=== PATIENT | female | born 1940 | race Caucasian/White ===

== ENCOUNTER 2020-07-06 07:20 | Outpatient (REF) | payer MEDICARE, SELFPAY ==
[2020-07-06 08:59] LABS: Cholesterol 164 mg/dL; Glucose Fasting 128 mg/dL (60-99); HDL Cholesterol 50 mg/dL; LDL Cholesterol Calculated 96 mg/dl; Triglycerides 91 mg/dL
[2020-07-06 09:19] LABS: Estimated Average Glucose 143 mg/dL; Hemoglobin A1c % 6.6 %
== END 2020-07-06 07:21 | disposition home or self-care (01) ==
LOC: HO.LAB 07:20
PROVIDERS: PCP Internal Medicine; Visit Provider Internal Medicine
DX: E11.9 Type 2 diabetes mellitus without complications (principal)
CPT/HCPCS: 80061; 82947; 83036

== ENCOUNTER 2020-10-04 07:17 | Outpatient (REF) | payer MEDICARE, SELFPAY ==
[2020-10-04 08:01] LABS: Estimated Average Glucose 140 mg/dL; Hemoglobin A1c % 6.5 %
[2020-10-04 08:14] LABS: Cholesterol 147 mg/dL; HDL Cholesterol 52 mg/dL; LDL Cholesterol Calculated 73 mg/dl; Triglycerides 110 mg/dL
== END 2020-10-04 07:18 | disposition home or self-care (01) ==
LOC: HO.LAB 07:17
PROVIDERS: PCP Internal Medicine; Visit Provider Internal Medicine
DX: E11.9 Type 2 diabetes mellitus without complications (principal)
CPT/HCPCS: 36415; 80061; 83036

== ENCOUNTER 2021-01-02 07:24 | Outpatient (REF) | payer MEDICARE, SELFPAY ==
[2021-01-02 08:37] LABS: Alanine Aminotransferase 18 U/L (0-31); Albumin Level 3.8 g/dL (3.5-5.0); Alkaline Phosphatase 116 U/L (39-117); Anion Gap 12 (12-20); Aspartate Amino Transferase 21 U/L (5-31); Bilirubin Total 0.5 mg/dL (0.0-1.0); Blood Urea Nitrogen 15 mg/dL (9-16); Calcium 9.3 mg/dL (8.4-10.2); Carbon Dioxide 26 mmol/L (22-29); Chloride 110 mmol/L (96-108); Cholesterol 146 mg/dL; Estimated Glomerular Filt Rate 53; Glucose Fasting 127 mg/dL (60-99); HDL Cholesterol 50 mg/dL; LDL Cholesterol Calculated 73 mg/dl; Potassium 4.4 mmol/L (3.3-5.1); Sodium 144 mmol/L (135-145); Total Protein 6.4 g/dL (6.5-8.0); Triglycerides 117 mg/dL
[2021-01-02 09:28] LABS: Estimated Average Glucose 131 mg/dL; Hemoglobin A1c % 6.2 %
== END 2021-01-02 07:25 | disposition home or self-care (01) ==
LOC: HO.LAB 07:24
PROVIDERS: PCP Internal Medicine; Visit Provider Internal Medicine
DX: E11.9 Type 2 diabetes mellitus without complications (principal)
CPT/HCPCS: 36415; 80053; 80061; 83036

== ENCOUNTER 2021-06-14 08:19 | Outpatient (REF) | payer MEDICARE, SELFPAY ==
--- NOTE | ~2021-06-14 | MM_ITS ---
EXAMINATION: BONE DENSITOMETRY CLINICAL INDICATION: Menopause. COMPARISON: Baseline BD dated 09/29/2008. TECHNIQUE: Using a [employer] DXA System (software version: 13.1) manufactured by [employer], dual-energy x-ray absorptiometry was performed of the lumbar spine and left hip. The images are of good technical quality. Summary results are attached. FINDINGS: AP SPINE L1-L2 (excluding L3 and L4): The data of L1-L4 has been changed to exclude the L3 and L4 vertebral bodies, because discrepant reading may be degenerative in nature at these levels may cause overestimation of lumbar spine density. Current: BMD 1.409 g/cm2, Z-score 3.0, T-score 2.0, normal, 3.0% decrease from baseline (<5% change is not significant). Baseline: BMD 1.453 g/cm2. LEFT FEMUR, NECK: Current: BMD 0.934 g/cm2, Z-score 0.9, T-score -0.7, normal. Baseline: BMD 1.126 g/cm2. LEFT FEMUR, TOTAL: Current: BMD 1.039 g/cm2, Z-score 1.7, T-score 0.3, normal, 18.4% decrease from baseline (<5% change is not significant). Baseline: BMD 1.273 g/cm2. IDENTIFIED RISK FACTORS: Menopause. HISTORY OF FRACTURE: None listed. MEDICATIONS: Vitamin D. MM/XR DEXA axial skeleton IMPRESSION: 1. DIAGNOSIS: Normal bone density based on the lowest T-score value of -0.7 in the femoral neck applying World Health Organization criteria. 2. 10-YEAR FRACTURE RISK PREDICTION, FRAX: Major osteoporotic fracture (clinical spine, forearm, hip or shoulder) 10.0%. Hip fracture 1.9%. 3. Treatment Recommendations: NOF guidelines recommend consideration for treatment in postmenopausal women and men age 50 and older presenting with the following: -A hip or vertebral (clinical or morphometric) fracture. -T-score less than or equal to -2.5 at the femoral neck or spine after appropriate evaluation to exclude secondary causes. -Low bone mass at the hip or spine and a 10-year fracture probability by FRAX of greater than or equal to 3% for hip fracture or greater than or equal to 20% for major osteoporotic fracture based on the [place] adapted WHO algorithm. 4. Other Recommendations: All treatment decisions require clinical judgment and consideration of individual patient factors, including patient preferences, comorbidities, previous drug use, risk factors not captured in the FRAX model (e.g. frailty, falls, vitamin D deficiency, increased bone turnover, interval significant decline in bone density) and possible under or overestimation of fracture risk by FRAX. FUTURE SCAN RECOMMENDATION: People with diagnosed cases of osteoporosis or at high risk for fracture should have regular bone mineral density tests. For patients eligible for Medicare, routine testing is allowed once every 2 years. The testing frequency can be increased to one year for patients who have rapidly progressing disease, those who are receiving or discontinuing medical therapy to restore bone mass, or have additional risk factors.
--- NOTE | ~2021-06-14 | MM_ITS ---
EXAMINATION: MM SCREENING DIGITAL BREAST TOMOSYNTHESIS, BILATERAL CLINICAL INFORMATION: Screening. Asymptomatic. The lifetime risk of breast cancer based on the Tyrer-Cuzick Model is under 2%. COMPARISON: Outside mammography: 07/27/2014, 07/26/2013 ([facility]) TECHNIQUE: Digital breast tomosynthesis is performed in both the craniocaudal and mediolateral oblique views along with computer-aided detection (CAD). Synthesized 2D images are generated from the tomosynthesis. FINDINGS: There are scattered areas of fibroglandular density (ACR BI-RADS breast composition Category b). Breast tissue composition borders on heterogeneously dense. The left breast has focal architectural distortion central 6:00 retroareolar position. There is mild nipple retraction. Patient will be recalled for further evaluation. The remainder of the bilateral breasts show no mass or architectural abnormality. There are bilateral ductal secretory and some scattered punctate round calcifications in each breast. The axilla are unremarkable. MM/MM tomosynthesis screening BI IMPRESSION: 1. Left: Architectural distortion central 6:00 retroareolar position with mild nipple retraction. 2. Right: No mammographic evidence of malignancy. ASSESSMENT: BI-RADS 0: Incomplete - Need Additional Imaging Evaluation RECOMMENDATION: 1. Additional views of the left breast (3-D spot CC with nipple in profile, 3-D spot ML). 2. Targeted ultrasound if warranted after review of the additional views. 3. Radiology department staff will contact the patient for additional imaging. This patient's information was entered into a reminder system with a target due date for their next mammogram.
== END 2021-06-14 08:20 | disposition home or self-care (01) ==
LOC: HO.MAMMO 08:19
PROVIDERS: PCP Internal Medicine; Visit Provider Internal Medicine
DX: Z12.31 Encounter for screening mammogram for malignant neoplasm of breast (principal); Z13.820 Encounter for screening for osteoporosis; Z78.0 Asymptomatic menopausal state; Z79.899 Other long term (current) drug therapy
CPT/HCPCS: 77063; 77067; 77080

== ENCOUNTER 2021-06-19 10:51 | Outpatient (REF) | payer MEDICARE, SELFPAY ==
--- NOTE | ~2021-06-19 | MM_ITS ---
EXAMINATION: MM DIAGNOSTIC DIGITAL BREAST TOMOSYNTHESIS, LEFT US DIAGNOSTIC ULTRASOUND BREAST, LEFT CLINICAL INFORMATION: Recall from screening for architectural distortion central 6:00 retroareolar left breast with mild nipple retraction. COMPARISON: Mammography: 11/14/2020, outside mammography 07/27/2014 ([facility]). TECHNIQUE: Digital breast tomosynthesis is performed. 2D images are generated from the tomosynthesis. The following views are obtained: Spot CC, spot ML, spot rolled ML. Ultrasound left breast is targeted to the lower inner quadrant. Grayscale imaging and color Doppler are performed without and with harmonics. Additional imaging also performed left axilla. FINDINGS: Mammography - Additional Views: There are scattered areas of fibroglandular density (ACR BI-RADS breast composition Category b). The additional spot views confirm a spiculated mass central 5:30 retroareolar left breast. There is mild nipple retraction. A smaller satellite lesion is suspected caudally on the ML views, within 2.5 cm of the primary lesion. Findings represent change from outside mammography 2013. Targeted Ultrasound: Ultrasound left breast demonstrates irregular hypoechoic mass superficial depth 5:30 o'clock retroareolar position measuring approximately 0.7 cm in diameter with posterior acoustic shadowing and internal color flow. This corresponds to the spiculated lesion on mammography. There is a smaller similar appearing lesion within 2.5 cm, residing more inferiorly in the left breast, and corresponding to the satellite lesion on mammography. Ultrasound left axilla demonstrates no lymphadenopathy. Management: Recommend ultrasound-guided biopsy of both masses anterior inferior left breast. Results and recommendation are discussed with the patient at time of visit. Results and recommendation also called to office (MATI Alfonso) for Dr. Wilkinson on 06/19/2021. MM/MM tomosynthesis added views L IMPRESSION: 1. Spiculated mass central 6:00 retroareolar left breast under 1 cm. 2. Smaller satellite lesion located approximately 2.5 cm away. 3. No visible lymphadenopathy. ASSESSMENT: BI-RADS 4: Suspicious (subcategory 4C: High suspicion for malignancy) RECOMMENDATION: Ultrasound-guided core biopsy left breast (2 lesions). This patient's information was entered into a reminder system with a target due date for their next mammogram.
== END 2021-06-19 10:52 | disposition home or self-care (01) ==
LOC: HO.MAMMO 10:51
PROVIDERS: Visit Provider Internal Medicine
DX: N63.23 Unspecified lump in the left breast, lower outer quadrant (principal)
CPT/HCPCS: 76642; 77061; 77065

== ENCOUNTER 2021-06-26 08:56 | Outpatient (REF) | payer MEDICARE, SELFPAY ==
--- NOTE | ~2021-06-26 | MM_ITS ---
EXAMINATION: ULTRASOUND GUIDED CORE BIOPSY BREAST (TWO SITES), LEFT POST PROCEDURE DIGITAL MAMMOGRAM, LEFT CLINICAL INFORMATION: Spiculated mass central 6:00 retroareolar left breast under 1 cm with smaller satellite lesion within 2.5 cm lower left breast. COMPARISON: Mammography 06/14/2021, 06/19/2021, targeted left breast ultrasound 06/19/2021. FINDINGS: Proper informed consent is obtained from the patient after discussion of the procedure, potential risks and complications, and alternatives. Patient was given an opportunity for questions. The patient appeared to understand. The patient consented to the procedure and signed the consent form. SPECIMEN A: LOCATION: Periareolar 6:00, primary lesion. GUIDANCE: Ultrasound-guided; aseptic technique. LESION: Irregular hypoechoic mass with shadowing just under 1 cm. APPROACH: Medial lateral. ANESTHESIA: 15 mL 1% lidocaine. DERMATOTOMY: Single skin sanjay dermatotomy performed. NEEDLE: 14-gauge Achieve core biopsy device with 13.5-gauge co-axial guide needle. CORES: 6. CLIP: HydroMARK; shape: butterfly. SPECIMEN B: New anesthesia and biopsy supplies are used. LOCATION: More inferior 6:00, satellite lesion. GUIDANCE: Ultrasound-guided; aseptic technique. LESION: Irregular hypoechoic mass with shadowing under 1 cm. APPROACH: Mediolateral through same dermatotomy site. ANESTHESIA: 10 mL 1% lidocaine. DERMATOTOMY: The same skin sanjay dermatotomy site from the first lesion is used to access the lesion for the second biopsy.. NEEDLE: 14-gauge Achieve core biopsy device with 13.5-gauge co-axial guide needle. CORES: 5. CLIP: HydroMARK; shape: open coil. POST PROCEDURE DIGITAL MAMMOGRAM: The post biopsy mammogram is performed in separate room using separate digital mammography equipment from the biopsy procedure. CC x2, ML, and MLO views are obtained. There are scattered areas of fibroglandular density (breast composition category: b). The 2 clip markers correspond to the 2 mammographic lesions noted on recent diagnostic exam. No gross hematoma. The patient tolerated the procedure well. No immediate complications. Home instructions reviewed with the patient. Final pathology results are pending. MM/MM tomosynthesis diagnostic LT IMPRESSION: 1. Status post ultrasound-guided core biopsy left breast (two sites). 2. Clips placed: HydroMARK; shape: butterfly (specimen A) and HydroMARK; shape: open coil (specimen B). 3. Pathology pending. An addendum report will be issued.
== END 2021-06-26 08:57 | disposition home or self-care (01) ==
LOC: HO.MAMMO 08:56
PROVIDERS: Visit Provider Surgery
DX: N63.23 Unspecified lump in the left breast, lower outer quadrant (principal)
CPT/HCPCS: 19083; 19084; 77061; 77065; 88305; 88360; 99202

== ENCOUNTER → 2021-07-04 08:50 | Outpatient (BNVA) | payer MEDICARE, SELFPAY | PROVIDERS: PCP Internal Medicine; Referring Provider Internal Medicine; Visit Provider Surgery | DX: C50.912 Malignant neoplasm of unspecified site of left female breast (principal) | CPT/HCPCS: 99212 ==

== ENCOUNTER 2021-07-09 06:51 | Day surgery (SDC) | payer MEDICARE, SELFPAY ==
[2021-07-05 12:38] VITALS: BMI 37.2
[2021-07-05 12:40] VITALS: BP 194/80; PULSE 64; RESP 18; TEMP 36; O2SAT 99
--- NOTE | 2021-07-05 13:47 | MHC.HEMONC ---
I met with pt and her prior to seeing . Pt has a new Dx of breast cancer. It was picked up on routine mammo recently. She had not had a mammo in several years. She was not aware of any breast changes. She has h/o colon cancer but was dealt with via surgery alone. She has PMH of HTN and Diabetes. Pt seen by Dr Mora in Consultation for left breast cancer. She will be having lumpectomy and sentinal node by Dr Reyez on Thursday. She will likely have RT alone followed by hormonal therapy. She will have Oncotype testing to see if she would benefit from chemotherapy. Pt wishes to go to [facility] for RT. Will make referral following her surgery next week.
--- NOTE | 2021-07-08 11:49 | HO.ANESPROP2 ---
Documented by User: Abena Brown NP 07/08/21 11:51 HPI - Anesthesia Eval Consult details Narrative: 81yo F for Left Sentinal Node Biopsy, Breast Biopsy Needle Localization, Breast Lumpectomy PMFSH Active Problems Active Problems: All Active Problems (Updated 07/05/21 @ 17:23 by Jonelle Mora MD) Hypertension (Acute) Hyperlipidemia (Acute) Adult general medical exam (Acute) Breast mass in female (Acute) Invasive ductal carcinoma of left breast (Acute) Left breast mass (Acute) Obesity (Acute) Post-menopausal (Acute) Screening for breast cancer (Acute) Obesity (Acute) Type 2 diabetes mellitus with hyperlipidemia (Acute) Diabetes mellitus (Acute) Past Medical History Medical History Diabetes mellitus Elevated cholesterol History of colon cancer HTN (hypertension) Invasive ductal carcinoma of left breast Left breast mass Obesity Obesity Post-menopausal Screening for breast cancer Type 2 diabetes mellitus with hyperlipidemia Family History Family History Father Parkinsons disease Mother Past heart attack Family/Other Diabetes Surgical History Surgical History H/O arthroscopy of knee H/O basal cell carcinoma excision H/O rectal polypectomy History of arthroscopy of right knee History of cholecystectomy History of colonoscopy History of lumbar laminectomy S/P right colectomy Social History Social History Housing: House Alcohol intake: current Alcohol intake frequency: a few times a week Alcohol type: wine Patient Tobacco Use Status: Never used Tobacco e-Cigarette/Vaping Use: Never Used Second Hand Smoke Exposure: No Use of substances other than those prescribed or required for medical reasons: No Are you DNR?: No Advance Directives: Yes Advance Directives on File: Yes Advance Directives Date on File: 07/05/21 service: No Current occupational status: retired Meds Allergies Allergy/AdvReac Type Severity Reaction Status Date / Time No Known Allergies Allergy Verified 07/04/21 09:04 Home Medications Medication Instructions Recorded Confirmed Last Taken Type aspirin 81 mg tablet,delayed 81 mg PO DAILY 07/13/20 07/05/21 Unknown History release (Adult Low Dose Aspirin) ascorbate calcium (vitamin C) 500 500 mg PO DAILY 10/10/20 07/05/21 Unknown History mg tablet cholecalciferol (vitamin D3) 25 25 mcg PO DAILY 10/10/20 07/05/21 Unknown History mcg (1,000 unit) capsule zinc 50 mg tablet 50 mg PO DAILY 10/10/20 07/05/21 Unknown History pxuszvfjbhdd-jyxgfqtk-unenvpv-folic 1 tab PO DAILY 06/26/21 07/05/21 Unknown History acid 400 mcg-vit K1 20 mcg tablet (One-A-Day Women's 50 Plus) Exam Exam Date and Time: July 08, 2021 1149 Height,Weight and Vital Signs: Height 5 ft 5 in Weight 101.5 kg Pertinent Lab Results Pertinent Lab Results: Laboratory Tests 06/24/18 01/02/21 00:00 07:35 WBC 6.1 Hgb 12.0 D Hct 37.6 Plt Count 417 H Sodium 144 Potassium 4.4 Chloride 110 H Carbon Dioxide 26 BUN 15 Creatinine 1.00 Assessment and Plan Assessment Anesthesia Assessment: Chart Reviewed Documented by User: Rhiannon Watson MD 07/09/21 11:13 [facility] Past Medical History Medical History Diabetes mellitus Elevated cholesterol History of colon cancer HTN (hypertension) Invasive ductal carcinoma of left breast Left breast mass Obesity Obesity Post-menopausal Screening for breast cancer Type 2 diabetes mellitus with hyperlipidemia Family History Family History Father Parkinsons disease Mother Past heart attack Family/Other Diabetes Surgical History Surgical History H/O arthroscopy of knee H/O basal cell carcinoma excision H/O rectal polypectomy History of arthroscopy of right knee History of cholecystectomy History of colonoscopy History of lumbar laminectomy S/P right colectomy History of Problems with Anesthesia: No Social History Social History Housing: House Alcohol intake: current Alcohol intake frequency: a few times a week Alcohol type: wine Patient Tobacco Use Status: Never used Tobacco e-Cigarette/Vaping Use: Never Used Second Hand Smoke Exposure: No Use of substances other than those prescribed or required for medical reasons: No Are you DNR?: No Advance Directives: Yes Advance Directives on File: Yes Advance Directives Date on File: 07/05/21 service: No Current occupational status: retired Meds Allergies Allergy/AdvReac Type Severity Reaction Status Date / Time No Known Allergies Allergy Verified 07/04/21 09:04 Home Medications Medication Instructions Recorded Confirmed Last Taken Type aspirin 81 mg tablet,delayed 81 mg PO DAILY 07/13/20 07/05/21 Unknown History release (Adult Low Dose Aspirin) ascorbate calcium (vitamin C) 500 500 mg PO DAILY 10/10/20 07/05/21 Unknown History mg tablet cholecalciferol (vitamin D3) 25 25 mcg PO DAILY 10/10/20 07/05/21 Unknown History mcg (1,000 unit) capsule zinc 50 mg tablet 50 mg PO DAILY 10/10/20 07/05/21 Unknown History xymsnadxqrzk-rwxxbbqr-zznuwbf-folic 1 tab PO DAILY 06/26/21 07/05/21 Unknown History acid 400 mcg-vit K1 20 mcg tablet (One-A-Day Women's 50 Plus) Exam Airway Mallampati Class: II TM Dist: >3cm Neck ROM: Full Loose/Missing/Broken Teeth: No Heart: RRR Lungs: CTA Assessment and Plan Final Anesthetic Review History of Problems with Anesthesia: No NPO: Yes ASA Class: II and III Final Preanesthetic Review: Meds/Allgs Chart Reviewed, Consent Obtained/Reviewed and Anes Risks/Benef Reviewed Patient Risk: Low Procedure Risk: Low Anesthetic Plan Anesthetic Plan: GA Disposition: Standard PACU
[2021-07-09] VITALS (8 sets, daily range): BP systolic 162–182; BP diastolic 71–80; PULSE 65–85; RESP 16–18; TEMP 36.1–36.5; O2SAT 95–99
--- NOTE | ~2021-07-09 | MM_ITS ---
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 COMPARISON: Mammography 06/14/2021, 06/19/2021, 06/26/2021; ultrasound left breast 06/19/2021, ultrasound-guided core biopsy 06/26/2021. TECHNIQUE NEEDLE LOC: Proper informed consent profiles the needle localization and the subsequent sentinel lymph node mapping is obtained from the patient after discussion of the procedure, potential risks and complications, and alternatives including declining the procedure today. Patient was given an opportunity for questions. The patient appeared to understand. The patient consented to the procedure and signed the consent form. GUIDANCE: Digital mammography. APPROACH: Lateral Medial. TARGET: 2 sites -- primary lesion (butterfly clip marker) and slightly inferoposterior to primary lesion satellite lesion (open coil clip marker). ANESTHESIA: lidocaine 1%: 6 mL (total divided between the two sites). LOCALIZATION MARKER: [place] Mamma[place] x2; 7.5 cm [place] for primary lesion and 10.0 cm [place] for the satellite lesion. The skin is prepped and local anesthesia administered to both sites. The needles are positioned and position assessed with mammography. The wires are hooked into position. [place] needle protector placed. The patient tolerated the procedure well and had no immediate complication. Following the procedure, 4% lidocaine ointment was administered to the left areola and covered with Tegaderm in anticipation of nuclear lymphoscintigraphy injection for sentinel lymph node mapping. Preliminary localization findings discussed with Dr. Oliver prior to surgery. TECHNIQUE SPECIMEN RADIOGRAPH: Imaging of the excised specimen is performed using digital mammography in 1 view. FINDINGS SPECIMEN RADIOGRAPH: The specimen shows the distal needles and distal hookwires are delivered intact. Both biopsy clip markers are identified in the specimen. Results were called to Dr. Matt Oliver in the operating room at the time of imaging. MM/MM needle loc LT IMPRESSION: 1. Status post left breast needle localization (two sites) with wires hooked into position. 2. Post operative specimen radiograph obtained.
--- NOTE | ~2021-07-09 | NM_ITS ---
EXAMINATION: NM LYMPH SCINTIGRAPHY CLINICAL INFORMATION: Left breast cancer. COMPARISON: None TECHNIQUE: Following explaining left breast sentinel node procedure, benefits and risk, a written consent was obtained by Dr. Ladd. 2% lidocaine jelly cream was applied around the left breast areola for 30 minutes. The jelly cream was then cleaned with gauze and alcohol solution. 0.5 mCi of Lymphoseek divided in 4 equal doses was injected in 4 quadrants subcutaneously around the left areola. Images were obtained approximately 30 minutes later. Patient tolerated procedure extremely well. FINDINGS: On imaging, there is normal isotope activity seen in the 4 quadrants around the left breast areola. There are at least 2 obvious active lymph nodes seen in the anterior axilla. There are additional smaller faintly visualized 2 lymph nodes slightly superiorly and medially. NM/NM sentinel node w imaging IMPRESSION: Left breast lymphoscintigraphy reveals several sentinel lymph nodes in the left anterior axilla.
--- NOTE | ~2021-07-09 | MM_ITS ---
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 COMPARISON: Mammography 06/14/2021, 06/19/2021, 06/26/2021; ultrasound left breast 06/19/2021, ultrasound-guided core biopsy 06/26/2021. TECHNIQUE NEEDLE LOC: Proper informed consent profiles the needle localization and the subsequent sentinel lymph node mapping is obtained from the patient after discussion of the procedure, potential risks and complications, and alternatives including declining the procedure today. Patient was given an opportunity for questions. The patient appeared to understand. The patient consented to the procedure and signed the consent form. GUIDANCE: Digital mammography. APPROACH: Lateral Medial. TARGET: 2 sites -- primary lesion (butterfly clip marker) and slightly inferoposterior to primary lesion satellite lesion (open coil clip marker). ANESTHESIA: lidocaine 1%: 6 mL (total divided between the two sites). LOCALIZATION MARKER: [place] MammaLok x2; 7.5 cm [place] for primary lesion and 10.0 cm [place] for the satellite lesion. The skin is prepped and local anesthesia administered to both sites. The needles are positioned and position assessed with mammography. The wires are hooked into position. [place] needle protector placed. The patient tolerated the procedure well and had no immediate complication. Following the procedure, 4% lidocaine ointment was administered to the left areola and covered with Tegaderm in anticipation of nuclear lymphoscintigraphy injection for sentinel lymph node mapping. Preliminary localization findings discussed with Dr. Oliver prior to surgery. TECHNIQUE SPECIMEN RADIOGRAPH: Imaging of the excised specimen is performed using digital mammography in 1 view. FINDINGS SPECIMEN RADIOGRAPH: The specimen shows the distal needles and distal hookwires are delivered intact. Both biopsy clip markers are identified in the specimen. Results were called to Dr. Matt Oliver in the operating room at the time of imaging. MM/MM needle loc ea add IMPRESSION: 1. Status post left breast needle localization (two sites) with wires hooked into position. 2. Post operative specimen radiograph obtained.
[2021-07-09 07:25] LABS: Glucose, Whole Blood 120 mg/dL (60-115)
[2021-07-09] MEDS: Lactated Ringers 1,000 ML 100 ML IVCONT (07:38)
--- NOTE | 2021-07-09 10:57 | MHC.SHP ---
Pre-Procedural Eval Section A Date of Service: 07/09/21 Section B Chief Complaint: Invasive ductal carcinoma of left breast Allergies: Allergies Allergy/AdvReac Type Severity Reaction Status Date / Time No Known Allergies Allergy Verified 07/04/21 09:04 Plan I have reviewed the history and physical and performed a pertinent physical examination on my patient. No changes have occurred unless specified.
--- NOTE | 2021-07-09 13:19 | W.PM.OPN ---
Operative Note Operative Note Date of Service: 07/09/21 Narrative: Preop diagnosis: Invasive ductal cancer, left breast x2 Postop diagnosis: Invasive ductal cancer, left breast x2 Procedure: Lumpectomy, left breast with needle localization, sentinel node biopsy Surgeon: Matt Oliver MD speech language pathology assistant: ADRI Albaradobodeau Patient is an 81 year female who had been recently diagnosed to have breast cancer on the left breast. She had 2 foci of invasive ductal cancer at the 6 o'clock position, adjacent to each other. She had wanted to proceed with breast conservation therapy. She understood the technique of this procedure along with needle localization and sentinel node biopsy. She was aware of the risks, benefits and alternatives. She had undergone needle localization earlier this morning. There were [address] because of the 2 foci of invasive ductal cancer although these were almost adjacent to each other at the 6 o'clock position. The mammogram images for localization were reviewed with the radiologist. Patient had also undergone scintigraphy for the sentinel nodes in the left axilla. Reviewed the films as were and there were about 2-3 notes that seemed to light up on imaging. She was then brought to the operating room placed supine the table under general anesthesia via laryngeal mask airway. The left arm was abducted in position to make sure that we had good exposure of the left axilla. The left breast was prepped and draped in the usual sterile fashion. The 2 localizing needles were seen entering from lateral to medial towards the area underneath the nipple-areolar complex. Lidocaine 1% was used for local anesthesia. I there did proceeded to make an incision on the skin connecting the entry point of both needles using blade 15. This carried down through the full-thickness skin subcutaneous fat with electrocautery. I then proceeded to do sharp dissection using the curved Fraire to dissect around the breast tissue surrounding both localizing needles. I paid particular attention to make sure that we had adequate margins surrounding the area of both localizing needles. I proceeded to continue to dissect all the way posteriorly and circumferentially around the localizing needles, following the general path of both localized needles as we proceeded. Eventually, as able to achieve circumferential dissection of the breast tissue surrounding both localizing needles in this was sent for immediate reray as well as for immediate gross. I then proceeded to cauterize oozing areas within the excision cavity. Once hemostasis appeared adequate, I proceeded to then apply a Tegaderm on the incision. We then proceeded to change set up as well as gloves. I proceeded to then used the probe to identify the general area of the sentinel node on the left axilla. I made the incision on the skin on this little area after localizing with the nuclear probe. This incision was made using blade 15 and this was deepened using the electrocautery. I then proceeded to periodically used the probe to orient our dissection to make sure that we were going to the right direction of the sentinel nodes. We divided through the fascia of the axilla and by following the signals with the probe, I was able to identify the 1st sentinel node. I carefully dissected this with Metzenbaum scissors and this was sent as specimen. The count on this lymph node was 782. I then proceeded to continue to scan the axilla for higher counts. There was 1 particular area in the apex that had a persistently high count so we carefully followed this using the probe. We had difficulty localizing this particular lymph node because it was deep within the apex. Eventually, I was able to identify this lymph node and this was circumferentially dissected and sent as specimen. The count on this 2nd lymph node was 656 A 3rd lymph node was identified but this had low counts. This was also sent for pathology. Prior to completion of the sentinel node biopsy, we received a phone call from the radiologist confirming the presence of the biopsy clip and apparent good margins surrounding the localizing needles. We then received a call from the pathologist stating that the margins on the anterior, superior as well as posterior of the lumpectomy site may be close. I therefore proceeded to open up this incision again. We removed more tissue on the anterior superior area and this was labeled as such. Removed more tissue as well on the posterior margins and this was labeled as such. I did not identify any area of induration or suspicious margins throughout the lumpectomy whether by palpation or direct visualization. I copiously irrigated. I controlled oozing areas with electrocautery. Once hemostasis was ensured on both the lumbar to site as well as the axilla, I reapposed deep subcutaneous tissue with Dexon 3-0 sutures. I closed both incisions with running subcuticular 4-0 Dexon sutures Steri-Strips and dressings were applied and the procedure was completed. The patient tolerated the procedure well. There were no complications noted. Initial and final counts of sponges and instruments were correct. Estimated blood loss was about 40 cc. The patient was extubated without difficulty and transferred to the recovery room with stable vital signs. Breast Stuart Node Biopsy Substrate(s) used for sentinel node biopsy in the non-neoadjuvant setting: Radiotracer All significantly radioactive nodes were removed, if radionuclide was used as the substrate for localization: Yes All palpably suspicious nodes were removed, if present: N/A If clips were placed in pathology-involved nodes, those nodes were identified and removed: Yes General Surg. - Synoptic Notes Breast Stuart Node Biopsy Substrate(s) used for sentinel node biopsy in the non-neoadjuvant setting: Radiotracer All significantly radioactive nodes were removed, if radionuclide was used as the substrate for localization: Yes All palpably suspicious nodes were removed, if present: N/A If clips were placed in pathology-involved nodes, those nodes were identified and removed: Yes
--- NOTE | 2021-07-09 13:31 | P.BOP_ITS ---
Brief Operative Note Date of Service: 07/09/21 Pre-op diagnosis: Invasive ductal cancer left breast Post-op diagnosis: same Procedure: Lumpectomy left breast with needle localization, and sentinel node biopsy Surgeon: Matt Oliver MD Anesthesia: GLMA Was an Control And Recovery Combat Rescue used for this Procedure?: Yes Control And Recovery Combat Rescue: Ilsa Goode Estimated blood loss (mL): 40 Pathology: other (1. Lumpectomy 2. [place] node 1 with a count of 782 3. sentinel node 2 with a count of 656 4. Additional axillary tissue 5. Anterosuperior margins 6. Post. margins ) Condition: stable Disposition: PACU
[2021-07-09] MEDS: ondansetron HCL 4 MG/2 ML VIAL IVPUSH (13:56)
[2021-07-09] MEDS: Acetaminophen 325 MG TABLET 650 MG PO (14:01)
[2021-07-09] MEDS: Ibuprofen 600 MG TABLET PO (14:34)
== END 2021-07-09 15:37 ==
PROVIDERS: PCP Internal Medicine; Visit Provider Surgery
PROC: (CPT 19301; principal; 2021-07-09 11:00)
PROC: (CPT 19301; 2021-07-09 11:00)
PROC: (CPT 19301; 2021-07-09 11:00)
DX: C50.112 Malignant neoplasm of central portion of left female breast (principal); E78.5 Hyperlipidemia, unspecified; I10 Essential (primary) hypertension; E11.9 Type 2 diabetes mellitus without complications; Z79.84 Long term (current) use of oral hypoglycemic drugs; Z79.82 Long term (current) use of aspirin; Z79.899 Other long term (current) drug therapy; Z90.49 Acquired absence of other specified parts of digestive tract
CPT/HCPCS: 19301; 38525; 19281; 19282; 78195; 82947; 88305; 88307; 88329; 88341; 88342; A4648; A9520; J0690; J1100; J2405; J3010

== ENCOUNTER 2021-07-16 07:20 | Outpatient (REF) | payer MEDICARE, SELFPAY ==
[2021-07-16 08:17] LABS: Hematocrit 36.1 % (37-47); Hemoglobin 11.5 g/dl (12.0-16.0); Mean Corpuscular HGB Conc 31.9 g/dl (31.0-35.0); Mean Corpuscular Hemoglobin 28.8 pg (27.0-33.0); Mean Corpuscular Volume 90.3 fL (80-98); Mean Platelet Volume 9.9 fL (9.4-12.3); Platelet Count 271 X10*3/uL (160-400); Red Cell Distribution Width 13.9 % (11.0-16.0); White Blood Count 7.6 X10*3/uL (4.8-10.8)
[2021-07-16 08:57] LABS: Alanine Aminotransferase 16 U/L (0-31); Alkaline Phosphatase 115 U/L (39-117); Anion Gap 13 (12-20); Aspartate Amino Transferase 19 U/L (5-31); Bilirubin Total 0.4 mg/dL (0.0-1.0); Blood Urea Nitrogen 20 mg/dL (9-16); Calcium 9.4 mg/dL (8.4-10.2); Carbon Dioxide 23 mmol/L (22-29); Chloride 110 mmol/L (96-108); Cholesterol 157 mg/dL; Estimated Glomerular Filt Rate 47; Glucose Random 138 mg/dL (60-115); HDL Cholesterol 51 mg/dL; LDL Cholesterol Calculated 82 mg/dl; Potassium 4.3 mmol/L (3.3-5.1); Sodium 142 mmol/L (135-145); Total Protein 6.6 g/dL (6.5-8.0); Triglycerides 122 mg/dL
[2021-07-16 09:01] LABS: Estimated Average Glucose 140 mg/dL; Hemoglobin A1c % 6.5 %
== END 2021-07-16 07:21 | disposition home or self-care (01) ==
LOC: HO.LAB 07:20
PROVIDERS: PCP Internal Medicine; Visit Provider Nurse Practitioner Family
DX: I10 Essential (primary) hypertension (principal); E78.5 Hyperlipidemia, unspecified; E11.69 Type 2 diabetes mellitus with other specified complication
CPT/HCPCS: 36415; 80053; 80061; 83036; 85027

== ENCOUNTER → 2021-07-24 10:21 | Outpatient (BNVA) | payer MEDICARE, SELFPAY | PROVIDERS: PCP Internal Medicine; Referring Provider Internal Medicine; Visit Provider Surgery | DX: C50.912 Malignant neoplasm of unspecified site of left female breast (principal) | CPT/HCPCS: 99212 ==

== ENCOUNTER → 2021-08-28 14:09 | Outpatient (BNVA) | payer MEDICARE, SELFPAY | PROVIDERS: PCP Internal Medicine; Referring Provider Internal Medicine; Visit Provider Surgery | DX: Z48.3 Aftercare following surgery for neoplasm (principal); C50.912 Malignant neoplasm of unspecified site of left female breast | CPT/HCPCS: 99212 ==

== ENCOUNTER 2021-11-12 07:23 | Outpatient (REF) | payer MEDICARE, SELFPAY ==
[2021-11-12 07:41] LABS: MANUAL DIFF FLAG NO
[2021-11-12 07:47] LABS: Basophils Percent Auto 0.4 % (0-2); Eosinophils Absolute Auto 0.5 X10*3/uL (0.0-0.4); Hematocrit 37.2 % (37.0-47.0); Imm Gran Abs Auto 0.01 X10*3/uL (0.00-0.03); Imm Gran Pct Auto 0.2 % (0.0-0.4); Lymphocytes Absolute Auto 1.6 X10*3/uL (1.2-4.9); Lymphocytes Percent Auto 31.5 % (20-40); Mean Corpuscular HGB Conc 32.3 g/dl (31.0-35.0); Mean Corpuscular Hemoglobin 28.8 pg (27.0-33.0); Mean Corpuscular Volume 89.4 fL (80.0-98.0); Mean Platelet Volume 9.4 fL (9.4-12.3); Monocytes Absolute Auto 0.4 X10*3/uL (0.1-1.2); Monocytes Percent Auto 8.4 % (2-11); Neutrophils Absolute Auto 2.5 x10*3/uL (2.0-8.3); Neutrophils Percent Auto 50.5 % (45-73); Platelet Count 231 X10*3/uL (160-400); Red Blood Count 4.16 X10*6/uL (4.20-5.50); Red Cell Distribution Width 13.4 % (11.0-16.0)
[2021-11-12 08:19] LABS: Estimated Average Glucose 143 mg/dL; Hemoglobin A1c % 6.6 %
[2021-11-12 08:46] LABS: Alanine Aminotransferase 16 U/L (0-31); Albumin Level 3.8 g/dL (3.5-5.0); Alkaline Phosphatase 105 U/L (39-117); Anion Gap 13 (12-20); Aspartate Amino Transferase 21 U/L (5-31); Bilirubin Total 0.5 mg/dL (0.0-1.0); Blood Urea Nitrogen 21 mg/dL (9-16); Calcium 9.5 mg/dL (8.4-10.2); Carbon Dioxide 25 mmol/L (22-29); Chloride 109 mmol/L (96-108); Cholesterol 144 mg/dL; Estimated Glomerular Filt Rate 49; Glucose Fasting 124 mg/dL (60-99); HDL Cholesterol 52 mg/dL; LDL Cholesterol Calculated 70 mg/dl; Potassium 4.3 mmol/L (3.3-5.1); Sodium 143 mmol/L (135-145); Total Protein 6.4 g/dL (6.5-8.0); Triglycerides 111 mg/dL
== END 2021-11-12 07:24 | disposition home or self-care (01) ==
LOC: HO.LAB 07:23
PROVIDERS: PCP Internal Medicine; Visit Provider Internal Medicine
DX: Z00.00 Encounter for general adult medical examination without abnormal findings (principal); E11.9 Type 2 diabetes mellitus without complications
CPT/HCPCS: 36415; 80053; 80061; 83036; 85025

== ENCOUNTER 2021-11-13 07:30 | Outpatient (REF) | payer MEDICARE, SELFPAY ==
[2021-11-13 08:24] LABS: Creatinine Urine 33.52 mg/dL; Microalbumin Urine < 5.0 mg/L
== END 2021-11-13 07:31 | disposition home or self-care (01) ==
LOC: HO.LNP 07:30
PROVIDERS: Visit Provider Internal Medicine
DX: E11.9 Type 2 diabetes mellitus without complications (principal)
CPT/HCPCS: 82043

== ENCOUNTER → 2022-02-26 08:50 | Outpatient (BNVA) | payer MEDICARE, SELFPAY | PROVIDERS: PCP Internal Medicine; Visit Provider Surgery | DX: C50.912 Malignant neoplasm of unspecified site of left female breast (principal); Z79.811 Long term (current) use of aromatase inhibitors; Z92.3 Personal history of irradiation | CPT/HCPCS: 99212 ==

== ENCOUNTER 2022-03-11 07:13 | Outpatient (REF) | payer MEDICARE, SELFPAY ==
[2022-03-11 08:10] LABS: Glucose Fasting 140 mg/dL (60-99)
[2022-03-11 08:12] LABS: Alanine Aminotransferase 15 U/L (0-31); Albumin Level 3.9 g/dL (3.5-5.0); Alkaline Phosphatase 95 U/L (39-117); Anion Gap 13 (12-20); Aspartate Amino Transferase 19 U/L (5-31); Bilirubin Total 0.5 mg/dL (0.0-1.0); Blood Urea Nitrogen 24 mg/dL (9-16); Calcium 9.5 mg/dL (8.4-10.2); Carbon Dioxide 25 mmol/L (22-29); Chloride 108 mmol/L (96-108); Cholesterol 156 mg/dL; Estimated Glomerular Filt Rate 42; Glucose Random 143 mg/dL (60-115); HDL Cholesterol 51 mg/dL; LDL Cholesterol Calculated 85 mg/dl; Potassium 4.5 mmol/L (3.3-5.1); Sodium 141 mmol/L (135-145); Total Protein 6.5 g/dL (6.5-8.0); Triglycerides 102 mg/dL
[2022-03-11 08:31] LABS: Estimated Average Glucose 143 mg/dL; Hemoglobin A1c % 6.6 %
[2022-03-11 08:35] LABS: Thyroid Stimulating Hormone 2.14 uIU/mL (0.32-4.0)
== END 2022-03-11 07:14 | disposition home or self-care (01) ==
LOC: HO.LAB 07:13
PROVIDERS: Internal Medicine; PCP Internal Medicine; Visit Provider Internal Medicine
DX: Z00.00 Encounter for general adult medical examination without abnormal findings (principal); C50.912 Malignant neoplasm of unspecified site of left female breast; E11.65 Type 2 diabetes mellitus with hyperglycemia
CPT/HCPCS: 36415; 80053; 80061; 82947; 83036; 84443

== ENCOUNTER 2022-06-10 07:08 | Outpatient (REF) | payer MEDICARE, SELFPAY ==
[2022-06-10 08:15] LABS: Estimated Average Glucose 143 mg/dL; Hemoglobin A1c % 6.6 %
[2022-06-10 08:20] LABS: Cholesterol 157 mg/dL; Glucose Fasting 149 mg/dL (60-99); HDL Cholesterol 53 mg/dL; LDL Cholesterol Calculated 77 mg/dl; Triglycerides 136 mg/dL
== END 2022-06-10 07:09 | disposition home or self-care (01) ==
LOC: HO.LAB 07:08
PROVIDERS: PCP Internal Medicine; Visit Provider Internal Medicine
DX: E78.5 Hyperlipidemia, unspecified (principal); E11.9 Type 2 diabetes mellitus without complications; R73.9 Hyperglycemia, unspecified
CPT/HCPCS: 36415; 80061; 82947; 83036

== ENCOUNTER 2022-07-03 10:50 | Outpatient (REF) | payer MEDICARE, SELFPAY ==
--- NOTE | ~2022-07-03 | MM_ITS ---
EXAMINATION: MM DIAGNOSTIC DIGITAL BREAST TOMOSYNTHESIS, BILATERAL CLINICAL INFORMATION: Due for yearly. 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 COMPARISON: Mammography: 07/09/2021, 06/26/2021, 06/19/2021, 06/14/2021; outside mammography 07/27/2014 ([facility]). TECHNIQUE: Digital breast tomosynthesis is performed in both the craniocaudal and mediolateral oblique views along with computer-aided detection (CAD). Synthesized 2D images are generated from the tomosynthesis. Additional views left breast obtained: exaggerated left CC, magnification left CC, magnification left ML. FINDINGS: There are scattered areas of fibroglandular density (ACR BI-RADS breast composition Category b). There are post therapy changes on the left with decreased breast size, postoperative scarring, and smooth skin thickening. The right breast shows no significant changes from prior studies. No developing density or interval mass or architectural abnormality. There are scattered bilateral round and ductal secretory calcifications again noted. Results are provided to the patient at time of visit by the technologist. MM/MM tomosynthesis diagnostic BI IMPRESSION: -No mammographic evidence of malignancy. -Post therapy changes left breast. ASSESSMENT: BI-RADS 2: Benign RECOMMENDATION: Routine annual mammography screening. This patient's information was entered into a reminder system with a target due date for their next mammogram.
== END 2022-07-03 10:51 | disposition home or self-care (01) ==
LOC: HO.MAMMO 10:50
PROVIDERS: PCP Internal Medicine; Visit Provider Internal Medicine
DX: Z85.3 Personal history of malignant neoplasm of breast (principal)
CPT/HCPCS: 77062; 77066

== ENCOUNTER 2022-08-28 07:11 | Outpatient (REF) | payer MEDICARE, SELFPAY ==
[2022-08-28 08:17] LABS: Cholesterol 142 mg/dL; Glucose Fasting 113 mg/dL (60-99); HDL Cholesterol 48 mg/dL; LDL Cholesterol Calculated 71 mg/dl; Triglycerides 119 mg/dL
[2022-08-28 08:18] LABS: Estimated Average Glucose 137 mg/dL; Hemoglobin A1c % 6.4 %
== END 2022-08-28 07:12 | disposition home or self-care (01) ==
LOC: HO.LAB 07:11
PROVIDERS: PCP Internal Medicine; Visit Provider Internal Medicine
DX: E78.5 Hyperlipidemia, unspecified (principal); E11.65 Type 2 diabetes mellitus with hyperglycemia
CPT/HCPCS: 36415; 80061; 82947; 83036

== ENCOUNTER 2022-12-24 07:10 | Outpatient (REF) | payer MEDICARE, SELFPAY ==
[2022-12-24 07:19] LABS: MANUAL DIFF FLAG NO
[2022-12-24 07:41] LABS: Basophils Percent Auto 0.5 % (0-2); Eosinophils Absolute Auto 0.4 X10*3/uL (0.0-0.4); Eosinophils Percent Auto 7.1 % (0-4); Hematocrit 37.6 % (37.0-47.0); Hemoglobin 12.1 g/dl (12.0-16.0); Imm Gran Abs Auto 0.01 X10*3/uL (0.00-0.03); Imm Gran Pct Auto 0.2 % (0.0-0.4); Lymphocytes Absolute Auto 2.3 X10*3/uL (1.2-4.9); Lymphocytes Percent Auto 37.5 % (20-40); Mean Corpuscular HGB Conc 32.2 g/dl (31.0-35.0); Mean Corpuscular Hemoglobin 28.9 pg (27.0-33.0); Mean Corpuscular Volume 89.7 fL (80.0-98.0); Mean Platelet Volume 9.8 fL (9.4-12.3); Monocytes Absolute Auto 0.5 X10*3/uL (0.1-1.2); Monocytes Percent Auto 8.7 % (2-11); Neutrophils Absolute Auto 2.9 x10*3/uL (2.0-8.3); Platelet Count 257 X10*3/uL (160-400); Red Blood Count 4.19 X10*6/uL (4.20-5.50); White Blood Count 6.2 X10*3/uL (4.8-10.8)
[2022-12-24 07:55] LABS: Estimated Average Glucose 137 mg/dL; Hemoglobin A1c % 6.4 %
[2022-12-24 07:56] LABS: Alanine Aminotransferase 15 U/L (0-31); Albumin Level 3.8 g/dL (3.5-5.0); Alkaline Phosphatase 105 U/L (39-117); Anion Gap 14 (12-20); Aspartate Amino Transferase 18 U/L (5-31); Bilirubin Total 0.5 mg/dL (0.0-1.0); Blood Urea Nitrogen 19 mg/dL (9-16); Calcium 9.2 mg/dL (8.4-10.2); Carbon Dioxide 23 mmol/L (22-29); Chloride 110 mmol/L (96-108); Cholesterol 152 mg/dL; Estimated Glomerular Filt Rate 52; Glucose Fasting 128 mg/dL (60-99); HDL Cholesterol 52 mg/dL; LDL Cholesterol Calculated 78 mg/dl; Potassium 4.2 mmol/L (3.3-5.1); Sodium 143 mmol/L (135-145); Total Protein 6.3 g/dL (6.5-8.0); Triglycerides 113 mg/dL
== END 2022-12-24 07:11 | disposition home or self-care (01) ==
LOC: HO.LAB 07:10
PROVIDERS: PCP Internal Medicine; Visit Provider Internal Medicine
DX: Z13.0 Encounter for screening for diseases of the blood and blood-forming organs and certain disorders involving the immune mechanism (principal); E11.9 Type 2 diabetes mellitus without complications; I10 Essential (primary) hypertension; E78.5 Hyperlipidemia, unspecified
CPT/HCPCS: 36415; 80053; 80061; 83036; 85025

== ENCOUNTER 2022-12-25 15:17 | Outpatient (REF) | payer MEDICARE, SELFPAY ==
--- NOTE | ~2022-12-25 | XR_ITS ---
EXAMINATION: XR KNEE, LEFT CLINICAL INFORMATION: Knee pain. COMPARISON: Bilateral AP knee standing 08/20/2018. TECHNIQUE: 4 views of the left knee. FINDINGS: There is loss of tricompartment joint space with periarticular spurring medial compartment and a small loose body in the lateral compartment. Superior patellar small enthesophytes are noted. There is a small joint effusion. No bony erosive changes. XR/XR knee LT 3V IMPRESSION: Loose body in the lateral compartment . Degenerative arthritic changes of the tricompartment with moderate periarticular spurring in the medial compartment. Small joint effusion.
== END 2022-12-25 15:18 | disposition home or self-care (01) ==
LOC: HO.HOSX 15:17
PROVIDERS: Visit Provider Physician Assistant
DX: M17.12 Unilateral primary osteoarthritis, left knee (principal)
CPT/HCPCS: 20610; 73562; 99202; J1020

== ENCOUNTER → 2023-02-26 08:52 | Outpatient (BNVA) | payer MEDICARE, SELFPAY | PROVIDERS: PCP Internal Medicine; Visit Provider Surgery | DX: C50.812 Malignant neoplasm of overlapping sites of left female breast (principal); Z98.890 Other specified postprocedural states; Z92.3 Personal history of irradiation | CPT/HCPCS: 99212 ==

== ENCOUNTER 2023-04-29 07:18 | Outpatient (REF) | payer MEDICARE, SELFPAY ==
[2023-04-29 09:54] LABS: Estimated Average Glucose 137 mg/dL; Hemoglobin A1c % 6.4 %
[2023-04-29 10:48] LABS: Cholesterol 149 mg/dL; Glucose Fasting 119 mg/dL (60-99); HDL Cholesterol 52 mg/dL; LDL Cholesterol Calculated 80 mg/dl; Triglycerides 87 mg/dL
[2023-04-29 11:04] LABS: Thyroid Stimulating Hormone 2.22 uIU/mL (0.32-4.0)
== END 2023-04-29 07:19 | disposition home or self-care (01) ==
LOC: HO.LAB 07:18
PROVIDERS: PCP Internal Medicine; Visit Provider Internal Medicine
DX: E03.9 Hypothyroidism, unspecified (principal); R73.9 Hyperglycemia, unspecified; E78.5 Hyperlipidemia, unspecified
CPT/HCPCS: 36415; 80061; 82947; 83036; 84443

== ENCOUNTER 2023-05-06 08:38 | Outpatient (AMB) | payer MEDICARE, SELFPAY ==
[2023-05-06 08:39] VITALS: BP 146/72; PULSE 78; O2SAT 99; BMI 37.1
--- NOTE | 2023-05-06 08:39 | MHC.PC.OV ---
Vital Signs 05/06/23 08:39 Height 5 ft 5 in Weight 223 lb BMI 37.1 BP 146/72 H Blood Pressure Location Lt brachial Position Sitting Pulse 78 Pulse Source Pulse Oximeter Temp Source Skin Pulse Oximetry (%) 99 Oxygen Delivery Method Room Air Intake Visit Reasons: 4 MONTH F/U Electrotherapist Required: No Allergies No Known Allergies Allergy (Verified 05/06/23 08:39) Medication List - Last Reconciled 05/06/23 by Jordan Wilkinson MD aspirin (Adult Low Dose Aspirin) 81 mg PO DAILY lisinopril 5 mg PO DAILY lovastatin 40 mg PO DAILY metformin ER 500 mg PO QPM metoprolol succinate ER 100 mg PO DAILY pioglitazone 45 mg PO DAILY Tobacco use date assessed: 01/01/23 Fall risk assessment: No Falls in past year Last assessed Fall Risk: 05/06/23 Dental Screening Dental Screen Date: 05/06/23 Did you have a dental visit in the last 12 months?: Yes Did you have a dental problem in the last 6 months where you did not have access to dental care?: No Was dental information given to patient?: Patient has dentist HPI 4 MONTH F/U HPI Details DM HTN and hyperlip; stable and compliant [facility] Medical History (Updated 02/26/23 @ 09:17 by Matt Oliver MD) Diabetes mellitus Elevated cholesterol History of breast cancer History of colon cancer HTN (hypertension) Invasive ductal carcinoma of left breast Left breast mass Obesity Obesity Post-menopausal Screening for breast cancer Type 2 diabetes mellitus with hyperlipidemia Surgical History H/O arthroscopy of knee H/O basal cell carcinoma excision H/O rectal polypectomy History of arthroscopy of right knee History of cholecystectomy History of colonoscopy History of lumbar laminectomy History of lumpectomy of left breast (~2020) S/P right colectomy Family History Father Parkinsons disease Mother Past heart attack Family/Other Diabetes Social History Household Members: Spouse Housing: House Alcohol intake: current Alcohol intake frequency: a few times a week Alcohol type: wine Patient Tobacco Use Status: Never used Tobacco e-Cigarette/Vaping Use: Never Used Second Hand Smoke Exposure: No Advance Directives Date on File: 07/05/21 service: No Current occupational status: retired Cognitive needs: No Hearing needs: No Vision needs: Yes Female Reproductive History Menstrual Age of Menarche: 11 Questionnaire PHQ-9 Over the last 2 weeks, how often have you been bothered by any of the following problems? Depression Screening Interpretation: Negative Source: Developed by Drs. Luis Felipe Gallego, Felipe Dang and colleagues, with an educational mercedes from [employer]. Thrive Questionnaire Date Thrive assessed: 01/01/23 Currently or been in a relationship where the following occur: no concerns reported AUDIT C Alcohol Use Questionnaire (AUDIT-C) 1. How often do you have a drink containing alcohol?: 2-4 times a month 2. How many drinks containing alcohol do you have on a typical day when you are drinking?: 1 or 2 Total Score: 2 Score Reviewed/Action Taken: Yes JANA-7 AMB Questionnaire JANA-7 Date JANA - 7 assessed: 01/01/23 Source: Developed by Drs. Luis Felipe Gallego, Breann Boyd, Felipe Main and colleagues, with an educational mercedes from [employer]. Review of Systems Const Denies chills, Denies headache(s) and Denies weight loss ENT Denies headache(s) Card Denies chest pain, Denies syncope, Denies irregular heart rhythm and Denies dyspnea Resp Denies chest congestion, Denies cough and Denies dyspnea GI Denies abdominal pain, Denies change in stool character, Denies nausea and Denies vomiting Musc Denies deformity and Denies joint swelling Neuro Denies syncope and Denies headache(s) Physical exam (Primary Care) Vital Signs: Last Vital Signs Pulse 78 05/06/23 08:39 BP 146/72 H 05/06/23 08:39 Pulse Ox 99 05/06/23 08:39 Oxygen Delivery Method Room Air 05/06/23 08:39 BMI result Body Mass Index 37.1 obesity BMI Assessment/Plan discussion: High BMI High, discussed plan: lifestyle, weight reduction, dietary and physical activity Tobacco/Smoking Status: Tobacco use Status Tobacco use date assessed 01/01/23 05/06/23 08:43 Patient Tobacco Use Status Never used Tobacco 05/06/23 08:43 e-Cigarette/Vaping Use Never Used 05/06/23 08:43 Depression Screening Interpretation: Negative Thrive Assessment: Date of Thrive Assessment Date Thrive assessed 01/01/23 05/06/23 08:43 Currently or been in a relationship where the following occur: no concerns reported Const General: cooperative and comfortable Resp Auscultation: clear to auscultation bilaterally Percussion: percussion normal Cardio Jugular venous distension: no JVD Rate: regular rate Rhythm: regular rhythm GI Inspection: Yes normal to inspection Assessment and Plan Assessment & Plan (1) Hypertension: Code(s): I10 - Essential (primary) hypertension Plan: stable; same rx (2) Hyperlipidemia: Code(s): E78.5 - Hyperlipidemia, unspecified Plan: stable; same rx (3) Type 2 diabetes mellitus with hyperlipidemia: Code(s): E11.69 - Type 2 diabetes mellitus with other specified complication; E78.5 - Hyperlipidemia, unspecified Plan: stable; do labs Orders: Orders Glucose Fasting Today R73.9 - Hyperglycemia, unspecified Hemoglobin A1c Today R73.9 - Hyperglycemia, unspecified Lipid Panel Today E78.5 - Hyperlipidemia, unspecified Coding Level of Care Code Est Pt Level 4 (67139) Diagnoses Hypertension I10 Hyperlipidemia E78.5 Type 2 diabetes mellitus with hyperlipidemia E11.69; E78.5
== END 2023-05-06 09:09 | disposition home or self-care (01) ==
PROVIDERS: PCP Internal Medicine; Visit Provider Internal Medicine
DX: I10 Essential (primary) hypertension (principal); E78.5 Hyperlipidemia, unspecified; E11.69 Type 2 diabetes mellitus with other specified complication
CPT/HCPCS: 99214

== ENCOUNTER 2023-07-07 10:43 | Outpatient (REF) | payer MEDICARE, SELFPAY ==
--- NOTE | ~2023-07-07 | MM_ITS ---
EXAMINATION: MM DIAGNOSTIC DIGITAL BREAST TOMOSYNTHESIS, LEFT CLINICAL INFORMATION: Breast conservation therapeutic changes left breast on 07/09/2021 for diagnosis of invasive ductal carcinoma 2 sites, 6:00 retroareolar left breast with smaller satellite lesion; post 1 year follow-up. COMPARISON: Mammography: 07/03/2022, 07/09/2021, 06/26/2021, 06/19/2021, 06/14/2021, outside mammography from [facility] 07/27/2014. TECHNIQUE: Digital breast tomosynthesis is performed in both the craniocaudal and mediolateral oblique views along with computer-aided detection (CAD). Synthesized 2D images are generated from the tomosynthesis. In addition, spot magnification left CC and ML views were performed of the left breast focusing on the postoperative region. FINDINGS: There are scattered areas of fibroglandular density (ACR BI-RADS breast composition Category b). There is redemonstration of post therapy changes on the left with decreased breast size, postoperative scarring, mild diffuse trabecular thickening, and smooth skin thickening. The right breast shows no significant changes from prior studies. No developing density or interval mass or architectural abnormality. There are scattered bilateral round and ductal secretory calcifications again noted. No suspicious calcifications have developed. MM/MM tomosynthesis diagnostic BI IMPRESSION: There are no significant changes from prior study. No current evidence of malignancy. Stable to mildly improving post therapeutic changes left breast inferolateral aspect from breast conservation therapy. Recommend continuing post operative 1 year follow-up protocol of the left breast to include standard magnification views. ASSESSMENT: BI-RADS BI-RADS 2 - Benign Findings RECOMMENDATION: 1 year F/U Results were provided to the patient at time of visit by the technologist. This patient's information was entered into a reminder system with a target due date for their next mammogram.
== END 2023-07-07 10:44 | disposition home or self-care (01) ==
LOC: HO.MAMMO 10:43
PROVIDERS: PCP Internal Medicine; Visit Provider Internal Medicine
DX: R92.1 Mammographic calcification found on diagnostic imaging of breast (principal)
CPT/HCPCS: 77062; 77066

== ENCOUNTER → 2023-07-07 11:00 | Outpatient (BNV) | payer MEDICARE, SELFPAY | PROVIDERS: PCP Internal Medicine; Visit Provider Radiology Diagnostic Radiology | DX: R92.1 Mammographic calcification found on diagnostic imaging of breast (principal); R92.323 Mammographic fibroglandular density, bilateral breasts | CPT/HCPCS: 77062; 77066; G0279 ==

== ENCOUNTER 2023-07-20 08:48 | Outpatient (AMB) | payer MEDICARE, SELFPAY ==
--- NOTE | 2023-07-20 08:48 | A.OFFVIS_ITS ---
Intake Vital Signs 07/20/23 08:53 Height 5 ft 5 in Weight 226 lb BMI 37.6 BP 122/74 Blood Pressure Location Rt brachial Position Sitting Pulse 98 Intake Visit Reasons: 4 mth breast exam post mammo Intake Note: This patient presents for a four month follow-up breast examination assessment. Patient c/o; Diag mammo 07/07/23, reports no breast complaints at this time. Outdoor Fitness Trainer Required: No Accompanied by: Other Relationship Allergies No Known Allergies Allergy (Verified 07/20/23 08:53) Medication List - Last Reconciled 07/20/23 by Matt Oliver MD aspirin (Adult Low Dose Aspirin) 81 mg PO DAILY lisinopril 5 mg PO DAILY lovastatin 40 mg PO DAILY metformin ER 500 mg PO QPM metoprolol succinate ER 100 mg PO DAILY pioglitazone 45 mg PO DAILY HPI 4 mth breast exam post mammo HPI Details She here for follow-up after lumpectomy with sentinel node biopsy last June, for a T1 N0 invasive ductal carcinoma? of the left breast. She denies any palpable breast masses or nipple or skin changes. She says she feels well overall. She had a mammogram 2 weeks ago for surveillance. [facility] Medical History (Updated 02/26/23 @ 09:17 by Matt Oliver MD) History of breast cancer Elevated cholesterol HTN (hypertension) History of colon cancer Invasive ductal carcinoma of left breast Left breast mass Obesity Post-menopausal Screening for breast cancer Obesity Type 2 diabetes mellitus with hyperlipidemia Diabetes mellitus Surgical History History of lumpectomy of left breast (~2020) History of colonoscopy H/O arthroscopy of knee H/O rectal polypectomy H/O basal cell carcinoma excision History of arthroscopy of right knee S/P right colectomy History of lumbar laminectomy History of cholecystectomy Family History Father Parkinsons disease Mother Past heart attack Family/Other Diabetes Social History Household Members: Spouse Housing: House Alcohol intake: current Alcohol intake frequency: a few times a week Alcohol type: wine Patient Tobacco Use Status: Never used Tobacco e-Cigarette/Vaping Use: Never Used Second Hand Smoke Exposure: No Advance Directives Date on File: 07/05/21 service: No Current occupational status: retired Cognitive needs: No Hearing needs: No Vision needs: Yes Female Reproductive History Menstrual Age of Menarche: 11 Physical Exam Vital Signs: Last Vital Signs Pulse 98 07/20/23 08:53 BP 122/74 07/20/23 08:53 BMI result Body Mass Index 37.6 Const General: comfortable and no acute distress Orientation/consciousness: patient oriented x3 Neck Neck: Yes no lymphadenopathy Chest Other: No palpable breast masses, no axillary lymphadenopathy, lumpectomy scar on the Resp Auscultation: clear to auscultation bilaterally Cardio Rhythm: regular rhythm GI Palpation (GI): Soft to palpation, nontender and no guarding Neuro General: patient oriented x3 Assessment & Plan Assessment & Plan (1) History of breast cancer: Code(s): Z85.3 - Personal history of malignant neoplasm of breast Plan: I have reviewed her mammogram from 07/07/2023. This shows post surgical changes on the lumpectomy site but otherwise benign. I have recommended her to continue with regular screening mammograms. Her breast exam is currently unremarkable at this time. The patient was supposedly on antiestrogen treatment but she was unable to tolerate letrozole. Coding Level of Care Code Est Pt Level 3 (17905) Diagnoses History of breast cancer Z85.3
[2023-07-20 08:53] VITALS: BP 122/74; PULSE 98; BMI 37.6
== END 2023-07-20 09:10 | disposition home or self-care (01) ==
PROVIDERS: PCP Internal Medicine; Visit Provider Surgery
DX: Z85.3 Personal history of malignant neoplasm of breast (principal)
CPT/HCPCS: 99213

== ENCOUNTER → 2023-07-20 08:48 | Outpatient (BNVA) | payer MEDICARE, SELFPAY | PROVIDERS: PCP Internal Medicine; Visit Provider Surgery | DX: C50.912 Malignant neoplasm of unspecified site of left female breast (principal) | CPT/HCPCS: 99212 ==

== ENCOUNTER 2023-08-06 07:16 | Outpatient (REF) | payer MEDICARE, SELFPAY ==
[2023-08-06 08:01] LABS: Cholesterol 150 mg/dL (<200); Glucose Fasting 119 mg/dL (60-99); HDL Cholesterol 54 mg/dL (>40); LDL Cholesterol Calculated 75 mg/dL (<100); Triglycerides 105 mg/dL (<150)
[2023-08-06 08:39] LABS: Estimated Average Glucose 134 mg/dL; Hemoglobin A1c % 6.3 % (<6.0)
== END 2023-08-06 07:17 | disposition home or self-care (01) ==
LOC: HO.LAB 07:16
PROVIDERS: PCP Internal Medicine; Visit Provider Internal Medicine
DX: R73.9 Hyperglycemia, unspecified (principal); E78.5 Hyperlipidemia, unspecified
CPT/HCPCS: 36415; 80061; 82947; 83036

== ENCOUNTER 2023-08-12 08:32 | Outpatient (AMB) | payer MEDICARE, SELFPAY ==
--- NOTE | 2023-08-12 08:35 | A.OFFPC_ITS ---
Vital Signs 08/12/23 08:36 Height 5 ft 5 in Weight 223 lb BMI 37.1 BP 160/70 H Blood Pressure Location Lt brachial Position Sitting Pulse 72 Pulse Source Pulse Oximeter Pulse Oximetry (%) 98 Oxygen Delivery Method Room Air Intake Visit Reasons: 3mth f/u Trauma Program Manager Required: No Metalworking Specialist: Not Required per policy Accompanied by: Self / Same As Patient Allergies No Known Allergies Allergy (Verified 08/12/23 08:36) Medication List - Last Reconciled 08/12/23 by Jordan Wilkinson MD aspirin (Adult Low Dose Aspirin) 81 mg PO DAILY lisinopril 5 mg PO DAILY lovastatin 40 mg PO DAILY metformin ER 500 mg PO QPM metoprolol succinate ER 100 mg PO DAILY pioglitazone 45 mg PO DAILY Tobacco use date assessed: 01/01/23 Fall risk assessment: No Falls in past year Last assessed Fall Risk: 08/12/23 Dental Screening Dental Screen Date: 08/12/23 Did you have a dental visit in the last 12 months?: Yes Did you have a dental problem in the last 6 months where you did not have access to dental care?: No Was dental information given to patient?: Patient has dentist HPI 3mth f/u HPI Details DM HTN and hyperlipidemia; doing well; compliant [facility] Medical History History of breast cancer Elevated cholesterol HTN (hypertension) History of colon cancer Invasive ductal carcinoma of left breast Left breast mass Obesity Post-menopausal Screening for breast cancer Obesity Type 2 diabetes mellitus with hyperlipidemia Diabetes mellitus Surgical History History of lumpectomy of left breast (~2020) History of colonoscopy H/O arthroscopy of knee H/O rectal polypectomy H/O basal cell carcinoma excision History of arthroscopy of right knee S/P right colectomy History of lumbar laminectomy History of cholecystectomy Family History Father Parkinsons disease Mother Past heart attack Family/Other Diabetes Household Members: Spouse Housing: House Alcohol intake: current Alcohol intake frequency: a few times a week Alcohol type: wine Patient Tobacco Use Status: Never used Tobacco e-Cigarette/Vaping Use: Never Used Second Hand Smoke Exposure: No Advance Directives Date on File: 07/05/21 service: No Current occupational status: retired Cognitive needs: No Hearing needs: No Vision needs: Yes Female Reproductive History Menstrual Age of Menarche: 11 Questionnaire PHQ-9 Over the last 2 weeks, how often have you been bothered by any of the following problems? Depression Screening Interpretation: Negative Depression Screening Done: Yes Source: Developed by Drs. Luis Felipe Gallego, Breann Boyd, Felipe Main and colleagues, with an educational mercedes from [employer]. Thrive Questionnaire Date Thrive assessed: 01/01/23 AUDIT C Alcohol Use Questionnaire (AUDIT-C) 1. How often do you have a drink containing alcohol?: 2-4 times a month 2. How many drinks containing alcohol do you have on a typical day when you are drinking?: 1 or 2 Total Score: 2 Score Reviewed/Action Taken: Yes JNAA-7 AMB Questionnaire JANA-7 Date JANA - 7 assessed: 01/01/23 Source: Developed by Drs. Luis Felipe Gallego, Breann Boyd, Felipe Main and colleagues, with an educational mercedes from [employer]. Review of Systems Const Denies chills, Denies headache(s) and Denies weight loss ENT Denies headache(s) Card Denies chest pain, Denies syncope, Denies irregular heart rhythm and Denies dyspnea Resp Denies chest congestion, Denies cough and Denies dyspnea GI Denies abdominal pain, Denies change in stool character, Denies nausea and Denies vomiting Musc Denies deformity and Denies joint swelling Neuro Denies syncope and Denies headache(s) Physical exam (Primary Care) Vital Signs: Last Vital Signs Pulse 72 08/12/23 08:36 BP 160/70 H 08/12/23 08:36 Pulse Ox 98 08/12/23 08:36 Oxygen Delivery Method Room Air 08/12/23 08:36 BMI result Body Mass Index 37.1 Tobacco/Smoking Status: Tobacco use Status Tobacco use date assessed 01/01/23 08/12/23 08:37 Patient Tobacco Use Status Never used Tobacco 08/12/23 08:37 e-Cigarette/Vaping Use Never Used 08/12/23 08:37 Depression Screening Interpretation: Negative Thrive Assessment: Date of Thrive Assessment Date Thrive assessed 01/01/23 08/12/23 08:37 Const General: cooperative, comfortable, no acute distress and alert Neck Neck: Yes no lymphadenopathy Thyroid: Thyroid normal Resp Effort & Inspection: normal respiratory effort Auscultation: clear to auscultation bilaterally Percussion: percussion normal Cardio Jugular venous distension: no JVD Palpation: normal PMI Rate: regular rate Rhythm: regular rhythm Heart sounds: S1 normal heart sound present and S2 normal heart sound present GI Inspection: Yes normal to inspection Palpation (GI): No hepatosplenomegaly present Skin General skin exam: no rashes or lesions noted Extrem General: Yes no clubbing, cyanosis or edema Assessment and Plan Assessment & Plan (1) Hypertension: Code(s): I10 - Essential (primary) hypertension Plan: stable; BP fine at home (2) Hyperlipidemia: Code(s): E78.5 - Hyperlipidemia, unspecified Plan: stable; same rx (3) Type 2 diabetes mellitus with hyperlipidemia: Code(s): E11.69 - Type 2 diabetes mellitus with other specified complication; E78.5 - Hyperlipidemia, unspecified Plan: A1C fine; same rx Orders: Orders Lipid Panel Today E78.5 - Hyperlipidemia, unspecified Glucose Fasting Today R73.9 - Hyperglycemia, unspecified Hemoglobin A1c Today R73.9 - Hyperglycemia, unspecified Coding Level of Care Code Est Pt Level 4 (70435) Diagnoses Hypertension I10 Hyperlipidemia E78.5 Type 2 diabetes mellitus with hyperlipidemia E11.69; E78.5
[2023-08-12 08:36] VITALS: BP 160/70; PULSE 72; O2SAT 98; BMI 37.1
== END 2023-08-12 08:58 | disposition home or self-care (01) ==
PROVIDERS: PCP Internal Medicine; Visit Provider Internal Medicine
DX: I10 Essential (primary) hypertension (principal); E78.5 Hyperlipidemia, unspecified; E11.69 Type 2 diabetes mellitus with other specified complication
CPT/HCPCS: 99214

== ENCOUNTER 2023-12-02 07:35 | Outpatient (REF) | payer MEDICARE, SELFPAY ==
[2023-12-02 08:03] LABS: Estimated Average Glucose 137 mg/dL; Hemoglobin A1c % 6.4 % (<6.0)
[2023-12-02 08:27] LABS: Cholesterol 160 mg/dL (<200); Glucose Fasting 128 mg/dL (60-99); HDL Cholesterol 57 mg/dL (>40); LDL Cholesterol Calculated 85 mg/dL (<100); Triglycerides 92 mg/dL (<150)
== END 2023-12-02 07:36 | disposition home or self-care (01) ==
LOC: HO.LAB 07:35
PROVIDERS: PCP Internal Medicine; Visit Provider Internal Medicine
DX: R73.9 Hyperglycemia, unspecified (principal); E78.5 Hyperlipidemia, unspecified
CPT/HCPCS: 36415; 80061; 82947; 83036

== ENCOUNTER 2023-12-11 08:20 | Outpatient (AMB) | payer MEDICARE, SELFPAY ==
[2023-12-11 08:36] VITALS: BP 138/76; PULSE 67; O2SAT 99; BMI 37.9
--- NOTE | 2023-12-11 08:36 | A.OFFPC_ITS ---
Vital Signs 12/11/23 08:36 Height 5 ft 5 in Weight 228 lb BMI 37.9 BP 138/76 Blood Pressure Location Lt brachial Position Sitting Pulse 67 Pulse Source Pulse Oximeter Pulse Oximetry (%) 99 Oxygen Delivery Method Room Air Intake Visit Reasons: 4mth f/u Janitor Custodian: Not Required per policy Accompanied by: Self / Same As Patient Allergies No Known Allergies Allergy (Verified 12/11/23 08:37) Medication List - Last Reconciled 12/11/23 by Jordan Wilkinson MD aspirin (Adult Low Dose Aspirin) 81 mg PO DAILY lisinopril 5 mg PO DAILY lovastatin 40 mg PO DAILY metformin ER 500 mg PO QPM metoprolol succinate ER 100 mg PO DAILY pioglitazone 45 mg PO DAILY Tobacco use date assessed: 12/11/23 Fall risk assessment: No Falls in past year Last assessed Fall Risk: 12/11/23 Dental Screening Dental Screen Date: 12/11/23 Did you have a dental visit in the last 12 months?: Yes Did you have a dental problem in the last 6 months where you did not have access to dental care?: No Was dental information given to patient?: Patient has dentist HPI 4mth f/u HPI Details DM HTN and hyperlip on rx; compliant [facility] Medical History History of breast cancer Elevated cholesterol HTN (hypertension) History of colon cancer Invasive ductal carcinoma of left breast Left breast mass Obesity Post-menopausal Screening for breast cancer Obesity Type 2 diabetes mellitus with hyperlipidemia Diabetes mellitus Surgical History History of lumpectomy of left breast (~2020) History of colonoscopy H/O arthroscopy of knee H/O rectal polypectomy H/O basal cell carcinoma excision History of arthroscopy of right knee S/P right colectomy History of lumbar laminectomy History of cholecystectomy Family History Father Parkinsons disease Mother Past heart attack Family/Other Diabetes Social History Household Members: Spouse Housing: House Alcohol intake: current Alcohol intake frequency: a few times a week Alcohol type: wine Patient Tobacco Use Status: Never used Tobacco e-Cigarette/Vaping Use: Never Used Second Hand Smoke Exposure: No Advance Directives Date on File: 07/05/21 service: No Current occupational status: retired Cognitive needs: No Hearing needs: No Vision needs: Yes Female Reproductive History Menstrual Age of Menarche: 11 Questionnaire PHQ-9 Over the last 2 weeks, how often have you been bothered by any of the following problems? 1. Little interest or pleasure in doing things: not at all 2. Feeling down, depressed, or hopeless: not at all 3. Trouble falling or staying asleep, or sleeping too much: not at all 4. Feeling tired or having little energy: not at all 5. Poor appetite or overeating: not at all 6. Feeling bad about yourself - or that you are a failure or have let yourself or your family down: not at all 7. Trouble concentrating on things, such as reading the newspaper or watching television: not at all 8. Moving or speaking so slowly that other people could have noticed. Or the opposite - being so fidgety or restless that you have been moving around a lot more than usual: not at all 9. Thoughts that you would be better off or of hurting yourself in some way: not at all Total score: 0 Depression Screening Interpretation: Negative Depression Screening Done: Yes 85071 - PHQ-9 Billing: Yes Source: Developed by Drs. Luis Felipe Gallego, Breann Boyd, Felipe Main and colleagues, with an educational mercedes from [employer]. Thrive Questionnaire Date Thrive assessed: 12/11/23 I am a: Patient What is your living situation today?: I have a steady place to live Within the past 12 months, did the food you bought not last and you didn't have the money to get more?: Never true Within the past 12 months, did you worry whether your food would run out before you got money to buy more?: Never true Do you have trouble paying for medicines?: No Do you have trouble getting transportation to medical appointments?: No Do you have trouble paying your heating and electricity bill?: No Do you have trouble taking care of your child, family member or friend?: No Do you have trouble with day-to-day activities such as bathing, preparing meals, shopping, managing finances, etc.?: No Are you currently unemployed and looking for a job?: No Are you interested in more education?: No Please select the resources that you would like help with: None THRIVE Score: 0 AUDIT C Alcohol Use Questionnaire (AUDIT-C) 1. How often do you have a drink containing alcohol?: 2-4 times a month 2. How many drinks containing alcohol do you have on a typical day when you are drinking?: 1 or 2 Total Score: 2 Score Reviewed/Action Taken: Yes JANA-7 AMB Questionnaire JANA-7 Date JANA - 7 assessed: 12/11/23 Feeling nervous, anxious, or on edge: 0 = Not at all Not being able to stop or control worryin = Not at all Worrying too much about different things: 0 = Not at all Trouble relaxin = Not at all Being so restless that it is hard to sit still: 0 = Not at all Becoming easily annoyed or irritable: 0 = Not at all Feeling afraid as if something awful might happen: 0 = Not at all Total JANA-7 score (0-4 normal; 5-9 mild; 10-14 moderate; 15-21 severe): 0 Source: Developed by Drs. Luis Felipe Gallego, Breann Boyd, Felipe Main and colleagues, with an educational mercedes from [employer]. JANA-7 Assessment Billing JANA-7 Assessment Tool: JANA-7 Assessment 75620 Review of Systems Const Denies chills, Denies headache(s) and Denies weight loss ENT Denies headache(s) Card Denies chest pain, Denies syncope, Denies irregular heart rhythm and Denies dyspnea Resp Denies chest congestion, Denies cough and Denies dyspnea GI Denies abdominal pain, Denies change in stool character, Denies nausea and Denies vomiting Musc Denies deformity and Denies joint swelling Neuro Denies syncope and Denies headache(s) Physical exam (Primary Care) Vital Signs: Last Vital Signs Pulse 67 12/11/23 08:36 BP 138/76 12/11/23 08:36 Pulse Ox 99 12/11/23 08:36 Oxygen Delivery Method Room Air 12/11/23 08:36 BMI result Body Mass Index 37.9 Tobacco/Smoking Status: Tobacco use Status Tobacco use date assessed 12/11/23 12/11/23 08:41 Patient Tobacco Use Status Never used Tobacco 12/11/23 08:41 e-Cigarette/Vaping Use Never Used 12/11/23 08:41 PHQ-9: PHQ-9 Score PHQ-9: Total score 0 12/11/23 08:41 Depression Screening Interpretation: Negative Thrive Assessment: Date of Thrive Assessment Date Thrive assessed 12/11/23 12/11/23 08:41 Const General: cooperative, comfortable, no acute distress and alert Neck Neck: Yes no lymphadenopathy Thyroid: Thyroid normal Resp Effort & Inspection: normal respiratory effort Auscultation: clear to auscultation bilaterally Percussion: percussion normal Cardio Jugular venous distension: no JVD Palpation: normal PMI Rate: regular rate Rhythm: regular rhythm Heart sounds: S1 normal heart sound present and S2 normal heart sound present GI Inspection: Yes normal to inspection Palpation (GI): No hepatosplenomegaly present Skin General skin exam: no rashes or lesions noted Extrem General: Yes no clubbing, cyanosis or edema Assessment and Plan Assessment & Plan (1) Type 2 diabetes mellitus with hyperlipidemia: Code(s): E11.69 - Type 2 diabetes mellitus with other specified complication; E78.5 - Hyperlipidemia, unspecified Plan: stable; do labs (2) Hypertension: Code(s): I10 - Essential (primary) hypertension Plan: stable; same rx (3) Hyperlipidemia: Code(s): E78.5 - Hyperlipidemia, unspecified Plan: stable; do labs Orders: Orders Glucose Fasting Today R73.9 - Hyperglycemia, unspecified Lipid Panel Today E78.5 - Hyperlipidemia, unspecified Hemoglobin A1c Today R73.9 - Hyperglycemia, unspecified Coding Level of Care Code Est Pt Level 4 (95932) Diagnoses Type 2 diabetes mellitus with hyperlipidemia E11.69; E78.5 Hypertension I10 Hyperlipidemia E78.5 Additional Codes JANA-7 Assessment Billing - JANA-7 Assessment Tool: JANA-7 Assessment 25462 ([id number])
== END 2023-12-11 09:11 | disposition home or self-care (01) ==
PROVIDERS: PCP Internal Medicine; Visit Provider Internal Medicine
DX: E11.69 Type 2 diabetes mellitus with other specified complication (principal); E78.5 Hyperlipidemia, unspecified; I10 Essential (primary) hypertension
CPT/HCPCS: 99214

== ENCOUNTER 2024-01-01 16:22 | Emergency (ER) | payer MEDICARE, SELFPAY ==
--- NOTE | ~2024-01-01 | XR_ITS ---
EXAMINATION: XR HAND/WRIST, RIGHT CLINICAL INFORMATION: Fall. COMPARISON: None TECHNIQUE: PA, lateral, and oblique views of the right hand and wrist. FINDINGS: Evaluation of the frontal view is limited due to rotation and evaluation of the lateral view is limited due to shadowing from overlying ventral external material/casting. However, accounting for these limitations, no discrete displaced fractures or subluxation are seen. Moderate to severe joint space narrowing and subcortical sclerosis in the third and fifth distal interphalangeal joints with suggestion of peripheral erosions. 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 Faint chondrocalcinosis in the wrist adjacent to the distal ulna. XR/XR hand wrist RT IMPRESSION: Limited examination as above 1. No definite fractures or subluxation. 2. 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 3. 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 4. 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
--- NOTE | ~2024-01-01 | XR_ITS ---
EXAMINATION: XR HUMERUS, RIGHT CLINICAL INFORMATION: Fall. COMPARISON: None available. TECHNIQUE: AP and lateral views of the right humerus. FINDINGS: Spirally oriented displaced and impacted fracture of the proximal to mid humeral shaft. Mild to moderate degenerative changes of the acromioclavicular and glenohumeral joints. Visualized right-sided clavicle right-sided ribs are within normal limits. No unusual soft tissue calcifications nor unexpected radiopaque foreign bodies. XR/XR humerus RT IMPRESSION: Displaced and impacted fracture of the proximal to mid humeral shaft.
--- NOTE | ~2024-01-01 | CT_ITS ---
EXAMINATION: CT HEAD WITHOUT CONTRAST CT CERVICAL SPINE WITHOUT CONTRAST CLINICAL INFORMATION: Fall. COMPARISON: None. TECHNIQUE: Contiguous axial imaging was performed from the skull base to vertex without intravenous administration of contrast. Contiguous axial imaging was performed from the upper chest through the skull base without intravenous administration of contrast. Coronal and sagittal reformats were obtained at the acquisition workstation. This CT examination was performed using dose optimization techniques as appropriate, variously including the following: *Automated exposure control *Adjustment of mA and/or kV according to patient size (this includes techniques or standardized protocols for targeted exams where dose is matched to indication/reason for exam; i.e. extremities or head) *Use of iterative reconstruction technique DLP: 671 and 341 mGy-cm FINDINGS: Head: There is no evidence of acute intracranial hemorrhage or edematous territorial infarction. Scattered hypoattenuation in the periventricular and deep white matter are consistent with moderate microangiopathy. Sewell-white matter differentiation is preserved. Proportional prominence of the ventricles and sulcal spaces. No evidence for obstructive hydrocephalus. No abnormal mass effect or midline shift. No extra-axial fluid collections. No acute soft tissue or osseous abnormalities. The mastoid air cells and paranasal sinuses are clear. Bilateral lens extraction. Cervical Spine: The atlantooccipital and atlantoaxial articulations remain well aligned. No evidence of acute fracture or subluxation. Moderate multilevel cervical spondylosis leading to various degrees of neural foraminal encroachment. There is no prevertebral soft tissue swelling. There is a 2.4 cm thyroid nodule in the region of the isthmus (12:256). The remaining cervical soft tissues are normal in appearance. The lung apices demonstrate no abnormalities. CT/CT head/brain wo IV con IMPRESSION: 1. No acute intracranial pathology. 2. No acute cervical spinal fractures or malalignment. 3. There is a 2.4 cm thyroid nodule in the region of the isthmus. Based on the recommendations of the ACR Incidental Thyroid Findings Committee (JACR 2014; 12(2):143-50), further evaluation by thyroid ultrasound is recommended for solitary incidental thyroid nodules greater than or equal to 1.5 cm in largest axial dimension in patients age 35 years and older who do not have limited life expectancy or significant morbidities, unless clinically warranted.
--- NOTE | ~2024-01-01 | CT_ITS ---
EXAMINATION: CT HEAD WITHOUT CONTRAST CT CERVICAL SPINE WITHOUT CONTRAST CLINICAL INFORMATION: Fall. COMPARISON: None. TECHNIQUE: Contiguous axial imaging was performed from the skull base to vertex without intravenous administration of contrast. Contiguous axial imaging was performed from the upper chest through the skull base without intravenous administration of contrast. Coronal and sagittal reformats were obtained at the acquisition workstation. This CT examination was performed using dose optimization techniques as appropriate, variously including the following: *Automated exposure control *Adjustment of mA and/or kV according to patient size (this includes techniques or standardized protocols for targeted exams where dose is matched to indication/reason for exam; i.e. extremities or head) *Use of iterative reconstruction technique DLP: 671 and 341 mGy-cm FINDINGS: Head: There is no evidence of acute intracranial hemorrhage or edematous territorial infarction. Scattered hypoattenuation in the periventricular and deep white matter are consistent with moderate microangiopathy. Sewell-white matter differentiation is preserved. Proportional prominence of the ventricles and sulcal spaces. No evidence for obstructive hydrocephalus. No abnormal mass effect or midline shift. No extra-axial fluid collections. No acute soft tissue or osseous abnormalities. The mastoid air cells and paranasal sinuses are clear. Bilateral lens extraction. Cervical Spine: The atlantooccipital and atlantoaxial articulations remain well aligned. No evidence of acute fracture or subluxation. Moderate multilevel cervical spondylosis leading to various degrees of neural foraminal encroachment. There is no prevertebral soft tissue swelling. There is a 2.4 cm thyroid nodule in the region of the isthmus (12:256). The remaining cervical soft tissues are normal in appearance. The lung apices demonstrate no abnormalities. CT/CT cervical spine wo IV con IMPRESSION: 1. No acute intracranial pathology. 2. No acute cervical spinal fractures or malalignment. 3. There is a 2.4 cm thyroid nodule in the region of the isthmus. Based on the recommendations of the ACR Incidental Thyroid Findings Committee (JACR 2015 Oct; 12(2):143-50), further evaluation by thyroid ultrasound is recommended for solitary incidental thyroid nodules greater than or equal to 1.5 cm in largest axial dimension in patients age 35 years and older who do not have limited life expectancy or significant morbidities, unless clinically warranted.
[2024-01-01 16:34] VITALS: BP 210/70; BP 240/95; PULSE 81; RESP 18; TEMP 36.7; O2SAT 98; BMI 38.2
--- NOTE | 2024-01-01 17:05 | ED_ITS ---
HPI - General Adult General Chief complaint: Fall Stated complaint: tripped on rug, R arm/shlder injury, collar placed Time Seen by Provider: 01/01/24 16:24 Source: patient, family and EMS Mode of arrival: EMS Limitations: no limitations History of Present Illness HPI narrative: 83-year-old female with past medical history significant for hypertension, hyperlipidemia, obesity, type 2 diabetes presents for evaluation of right arm pain Patient reports that she was on her porch change in the outside decorations She reports that while standing on a rug ?it must have slipped out from under me. The patient fell forward onto her right side. She denies hitting her head or losing consciousness Patient complains of 8/10 right upper arm pain Also has some right wrist pain She denies any headache, neck pain, leg pain Related Data Home Medications ?Medication ?Instructions ?Recorded ?Confirmed aspirin 81 mg tablet,delayed 81 mg PO DAILY 07/13/20 12/11/23 release (Adult Low Dose Aspirin) Previous Rx's ?Medication ?Instructions ?Recorded lovastatin 40 mg tablet 40 mg PO DAILY #90 tabs 10/14/22 metoprolol succinate 100 mg 100 mg PO DAILY #90 tabs 10/14/22 tablet,extended release 24 hr pioglitazone 45 mg tablet 45 mg PO DAILY #90 tabs 01/02/23 lisinopril 5 mg tablet 5 mg PO DAILY #90 tabs 11/16/23 metformin 500 mg tablet,extended 500 mg PO QPM #90 tabs 11/27/23 release 24 hr tramadol 50 mg tablet 50 mg PO Q6H PRN severe pain 01/01/24 (scale score 7-10) #12 tabs Allergies Allergy/AdvReac Type Severity Reaction Status Date / Time No Known Allergies Allergy Verified 01/01/24 16:38 Review of Systems Constitutional: Constitutional: Denies body ache(s), Denies chills, Denies fever(s) and Denies headache(s) ENT: Denies headache(s), Denies neck pain and Denies sore throat Cardiovascular: Cardiovascular: Denies chest pain and Denies dyspnea Respiratory: Respiratory: Denies cough and Denies dyspnea Gastrointestinal: Gastrointestinal: Denies abdominal pain, Denies nausea and Denies vomiting Musculoskeletal: Musculoskeletal: Denies back pain, Reports arthralgias, Reports joint swelling and Denies neck pain Integumentary/Breasts: Skin/Breast: Denies rash Neurologic: Denies headache(s) PMFSH Past Medical History Medical History History of breast cancer Elevated cholesterol HTN (hypertension) History of colon cancer Invasive ductal carcinoma of left breast Left breast mass Obesity Post-menopausal Screening for breast cancer Obesity Type 2 diabetes mellitus with hyperlipidemia Diabetes mellitus Surgical History History of lumpectomy of left breast (~2020) History of colonoscopy H/O arthroscopy of knee H/O rectal polypectomy H/O basal cell carcinoma excision History of arthroscopy of right knee S/P right colectomy History of lumbar laminectomy History of cholecystectomy Family History Family History Father Parkinsons disease Mother Past heart attack Family/Other Diabetes Social History Social History Household Members: Spouse Housing: House Alcohol intake: current Alcohol intake frequency: a few times a week Alcohol type: wine Patient Tobacco Use Status: Never used Tobacco e-Cigarette/Vaping Use: Never Used Second Hand Smoke Exposure: No Advance Directives: Yes Advance Directives on File: Yes Advance Directives Date on File: 07/05/21 service: No Current occupational status: retired Cognitive needs: No Hearing needs: No Vision needs: Yes Physical Exam ED Vital Signs: Vital Signs - 24 hr 01/01/24 16:34 01/01/24 17:47 01/01/24 18:57 Temperature 98.1 F 98.1 F 98.1 F Pulse Rate 81 73 67 Respiratory Rate 18 16 16 Blood Pressure 210/70 H 194/59 H 229/71 H Pulse Oximetry 98 100 98 Oxygen Delivery Method Room Air Room Air Room Air BMI result Body Mass Index 38.2 Const General: healthy appearing, no acute distress, alert and awake Nutritional Appearance: well nourished Orientation/consciousness: patient oriented x3 HENMT Head: Yes normocephalic and Yes atraumatic Eyes Eyelids: Yes eyelids normal Conjunctivae: conjunctivae normal Sclerae: sclerae normal Corneas: corneas normal Pupils: Equal, round and reactive pupils present EOM: EOMs intact bilaterally Neck Neck: Yes full ROM Resp Effort & Inspection: normal respiratory effort, able to speak in complete sentences and not labored Cardio Rate: regular rate Rhythm: regular rhythm GI Inspection: No distended Palpation (GI): Soft to palpation, not firm, nontender, no guarding and not rigid Back/Spine/Pelvis Other: Patient is in a modified C-collar Cervical Spine: No Cervical spine tenderness Skin General skin exam: elasticity normal Neuro General: patient oriented x3 Cranial nerves: Yes Equal, round and reactive pupils present and Yes Bilaterally intact EOM present Cognition (Neuro): normal cognition Extrem Other: Patient's right arm is in a modified sling from EMS. She is tender to palpation of the proximal right humerus. She has reduced range of motion this area. She has no right elbow tenderness. She does have tenderness to the dorsal surface of the right wrist. The patient is able to move all fingers of the right hand and the right wrist. No tenderness with manipulation of the hips bilaterally. She is able to raise both lower extremities off the bed without any difficulty. Course Reevaluation(s) Reevaluation #1: After seeing extent of right humerus fracture. Patient was re-evaluated, compartments are soft. Distal sensation, capillary refill intact. Radial pulse 2 +and equal to the opposite side. I discussed possible rehab placement with the patient versus going home. The patient would like to go home. Her son and at bedside and comfortable with plan of discharge home Time: 18:12 Reevaluation #2: I did discuss patient's CT finding of abnormal thyroid nodule requiring ultrasound follow-up with the patient. And recommended follow-up with PCP Time: 19:00 Medications Administered Discontinued Medications Generic Name Dose Route Start Last Admin Trade Name Osbaldo PRN Reason Stop Dose Admin Acetaminophen 650 mg 01/01/24 16:41 01/01/24 17:20 Acetaminophen 325 Mg Tablet PO 01/01/24 16:42 650 mg ONCE ONE Administration Procedures Orthopedic Splinting/Casting Injury #1: Side: right Upper Extremity Injury Location: upper arm Upper Extremity Immobilizer: sling/shoulder immobilizer and posterior splint Additional Comments: Patient tolerated the procedure well, there were no complications. Postprocedure, patient is able to wiggle all fingers. She has gross sensation intact, capillary refill intact. Medical Decision Making Medical Decision Making MDM Narrative: 83-year-old female presents for evaluation of a fall. On exam she is quite tender in the right upper arm, concern for proximal humerus fracture. Plan for CT brain and cervical spine given the traumatic injury though she has no pain or tenderness to these areas. The patient is noted to be hypertensive to 210/70. This may be related to her level of discomfort. She states that she just recently followed up with a PCP about this and does not want it addressed today. She is willing to take Tylenol for pain but does not want any narcotics Differential Diagnosis Differential Diagnoses: The differential diagnosis associated with the p resentation includes Humerus fracture Shoulder fracture Humerus dislocation Cervical fracture Cervical strain Contusion Intracranial hemorrhage Consult Healthcare Provider Management of the patient was discussed with: Balance Truing Inspector (Orthopedic Kaylen RUSH who recommends posterior splint and follow) Independent Interpretation I performed an independent interpretation of an: Plain X-Ray (Displaced spiral fracture of the right humerus) Interpretation: I do not appreciate any spiral fracture of the right hand or wrist Radiology Impression Discussion of test interpretation with radiology: I have reviewed the radiologist's reading. Radiologist Impression: IMPRESSION: Displaced and impacted fracture of the proximal to mid humeral shaft. Limited examination as above 1. No definite fractures or subluxation. 2. 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 3. 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 4. 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 Discharge Plan Discharge Clinical Impression: Closed right humeral fracture Patient Disposition: Home, Self-Care Instructions: Arm Fracture in Adults (ED), How to Use a Sling (ED) Additional Instructions: You have a spiral fracture of your humerus You may use ibuprofen/Tylenol for pain Use tramadol for more severe, breakthrough pain This may make you sleepy, did not drink alcohol or drive after taking it Follow-up with orthopedics at the number provided Return for new or worsening symptoms Your CT scan did show a 2.4 cm thyroid nodule and it is recommended that you have an out sound for follow-up Prescriptions: New tramadol 50 mg tablet 50 mg PO Q6H PRN (Reason: severe pain (scale score 7-10)) Qty: 12 0RF No Action metoprolol succinate 100 mg tablet extended release 24 hr 100 mg PO DAILY Qty: 90 8RF lovastatin 40 mg tablet 40 mg PO DAILY Qty: 90 8RF pioglitazone 45 mg tablet 45 mg PO DAILY Qty: 90 8RF lisinopril 5 mg tablet 5 mg PO DAILY Qty: 90 8RF metformin 500 mg tablet extended release 24 hr 500 mg PO QPM Qty: 90 7RF aspirin [Adult Low Dose Aspirin] 81 mg tablet,delayed release (DR/EC) 81 mg PO DAILY Referrals: Luis Blake MD [Physician] - (Spiral fracture right humerus) Print Language: Chinese
[2024-01-01] MEDS: Acetaminophen 325 MG TABLET 650 MG PO (17:20)
--- NOTE | 2024-01-01 17:20 | PC.NURSE ---
SPENCERE iced and elevated/supported. pt grimaces with all little movements
[2024-01-01 17:47] VITALS: BP 194/59; PULSE 73; RESP 16; TEMP 36.7; O2SAT 100
[2024-01-01 18:57] VITALS: BP 229/71; PULSE 67; RESP 16; TEMP 36.7; O2SAT 98
--- NOTE | 2024-01-01 19:04 | MHC.EDTECH ---
THIS PCT ASSIST PROVIDER COLIN TO APPLY PATIENT SPLINT ON RIGHT HUMERUS ,SLING APPLY TO PATIENT RIGHT SHOULDER .
[2024-01-01 19:49] VITALS: BP 199/66; PULSE 65; RESP 18; TEMP 36.7; O2SAT 99
== END 2024-01-01 19:50 | disposition home or self-care (01) ==
PROVIDERS: Emergency Provider Student in an Organized Health Care Education/Training Program; PCP Internal Medicine
DX: S42.201A Unspecified fracture of upper end of right humerus, initial encounter for closed fracture (principal); E04.1 Nontoxic single thyroid nodule; I10 Essential (primary) hypertension; E11.9 Type 2 diabetes mellitus without complications; W01.0XXA Fall on same level from slipping, tripping and stumbling without subsequent striking against object, initial encounter; Y93.9 Activity, unspecified; Y92.008 Other place in unspecified non-institutional (private) residence as the place of occurrence of the external cause; Y99.9 Unspecified external cause status
CPT/HCPCS: 29105; 70450; 72125; 73060; 73110; 73130; 99283; 99284

== ENCOUNTER 2024-01-15 08:30 | Outpatient (AMB) | payer MEDICARE, SELFPAY ==
[2024-01-15 08:37] VITALS: BMI 38.1
--- NOTE | 2024-01-15 08:37 | A.OFFVIS_ITS ---
Vital Signs 01/15/24 08:37 Height 5 ft 5 in Weight 229 lb BMI 38.1 Intake Visit Reasons: FC - right humeral fx, DOI 01/01/24 Intake Note: Blanca is a 83 year old right hand dominant female who presents today for a evaluation of her right humeral fx, DOI 01/01/24. Patient reports she fell face forward and landed on her right arm. She states that her arm feels strange . Denies numbness and tingling in her fingers. Allergies No Known Allergies Allergy (Verified 01/15/24 08:59) HPI HPI FC - right humeral fx, DOI 01/01/24: Details: 83-year-old right hand dominant female, with a significant medical history of type 2 diabetes mellitus, who presents in the office today for an evaluation of right shoulder pain. Patient presented to the ED via EMS on 01/01/2024 status post a falling forward on her porch that occurred the same day. She reported a complaint of right upper extremity pain in the shoulder and wrist. X-rays were obtained. The patient was placed in a sling immobilizer and posterior splint. She was given a prescription for Tramadol 50 mg PO Q6H PRN for pain with a supply of 12 pills. While in the office today the patient reports she fell forward and landed on her right upper extremity. She reports her arm feels ?strange?. Denies numbness and tingling in her right digits. She states she has a sore from the splint. She states she used a handkerchief and ice in an attempt to get relief. Confirms muscle spasms causing the wrist to move by itself. [facility] Medical History History of breast cancer Elevated cholesterol HTN (hypertension) History of colon cancer Invasive ductal carcinoma of left breast Left breast mass Obesity Post-menopausal Screening for breast cancer Obesity Type 2 diabetes mellitus with hyperlipidemia Diabetes mellitus Surgical History History of lumpectomy of left breast (~2020) History of colonoscopy H/O arthroscopy of knee H/O rectal polypectomy H/O basal cell carcinoma excision History of arthroscopy of right knee S/P right colectomy History of lumbar laminectomy History of cholecystectomy Family History Father Parkinsons disease Mother Past heart attack Family/Other Diabetes Social History Household Members: Spouse Housing: House Alcohol intake: current Alcohol intake frequency: a few times a week Alcohol type: wine Patient Tobacco Use Status: Never used Tobacco e-Cigarette/Vaping Use: Never Used Second Hand Smoke Exposure: No Advance Directives Date on File: 07/05/21 service: No Current occupational status: retired Cognitive needs: No Hearing needs: No Vision needs: Yes Female Reproductive History Menstrual Age of Menarche: 11 Review of Systems Const All systems reviewed & are unremarkable except as noted in HPI and below Physical Exam Vital Signs: BMI result Body Mass Index 38.1 Const General: cooperative and no acute distress Orientation/consciousness: patient oriented x3 Resp Effort & Inspection: normal respiratory effort and able to speak in complete sentences Cardio Peripheral pulses: Peripheral pulses 2+ throughout Skin General skin exam: no rashes or lesions noted Neuro General: patient oriented x3 Extrem Other: Right upper extremity: Right humerus circumferential moderate edema accompanied by scattered ecchymosis. Area located on the medial aspect of the proximal humerus where she has skin irritation from the splint rubbing. No surround erythema. Able to flex and extend at the wrist. Moderate amount of edema in the right hand on the dorsal aspect. Sensation intact. Radial pulse intact. Office Procedures Fracture Care Fracture Billing Code: Fracture Billing Code Assessment & Plan Assessment & Plan (1) Right humeral fracture: Code(s): S42.301A - Unspecified fracture of shaft of humerus, right arm, initial encounter for closed fracture Category: Medical Qualifiers: Encounter type: initial encounter Fracture morphology: unspecified fracture morphology Fracture type: closed Humerus Location: shaft Qualified Code(s): S42.301A - Unspecified fracture of shaft of humerus, right arm, initial encounter for closed fracture Plan Ms. Manuel is a 83-year-old right hand dominant female, with a significant medical history of type 2 diabetes mellitus, who presents in the office today for an evaluation of right shoulder pain. Patient presented to the ED via EMS on 01/01/2024 status post a falling forward on her porch that occurred the same day. She reported a complaint of right upper extremity pain in the shoulder and wrist. X-rays were obtained. The patient was placed in a sling immobilizer and posterior splint. She was given a prescription for Tramadol 50 mg PO Q6H PRN for pain with a supply of 12 pills. While in the office today the patient reports she fell forward and landed on her right upper extremity. She reports her arm feels ?strange?. Denies numbness and tingling in her right digits. She states she has a sore from the splint. She states she used a handkerchief and ice in an attempt to get relief. Confirms muscle spasms causing the wrist to move by itself. Discussed working on gentle ROM of the right wrist and elbow. Exercised for gentle ROM demonstrated. Discussed ROM to avoid for the elbow, wrist, and digits in the office. Patient demonstrates understanding. Patient was placed in a thermal molded splint, off the shelf. She should treat this like a cast, and she should remain in the sling. She can come out of the sling to allow the arm to hang at her side. She was educated not to lift anything greater than a coffee cup. Anticipation of PT at 4 weeks status post the injury. Follow up will be in 4 weeks, or sooner if needed. X-rays of the right humerus which were obtained while in the office today and were reviewed by me, Jennifer Loera PA-C, redemonstrated a mid shaft humerus fracture. X-rays of the right humerus, obtained on 01/01/2024, revealed: Displaced and impacted fracture of the proximal to mid humeral shaft. X-rays of the right wrist, obtained on 01/01/2024, revealed: 1. No definite fractures or subluxation. 2. 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 3. 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 4. 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 Orders: Orders XR humerus RT Today S42.309A - Unspecified fracture of shaft of humerus, unspecified arm, initial encounter for closed fracture PT Evaluation and Treatment Today S42.301A - Unspecified fracture of shaft of humerus, right arm, initial encounter for closed fracture Patient Instructions: Scribed by Danay Campos director of medical review, for Jennifer Loera PA-C on 01/15/2024 at 8:33 am, EST. Coding Level of Care Code New Pt Level 4 (98601) Diagnoses Closed fracture of shaft of right humerus, unspecified fracture morphology, initial encounter S42.301A Encounter type: initial encounter Fracture morphology: unspecified fracture morphology Fracture type: closed Humerus Location: shaft CPT Codes Fracture Care - Fracture Billing Code: Fracture Billing Code ([id number])
== END 2024-01-15 10:07 | disposition home or self-care (01) ==
PROVIDERS: PCP Internal Medicine; Visit Provider Physician Assistant
DX: S42.301A Unspecified fracture of shaft of humerus, right arm, initial encounter for closed fracture (principal)
CPT/HCPCS: 99213

== ENCOUNTER 2024-01-15 08:35 | Outpatient (REF) | payer MEDICARE, SELFPAY ==
--- NOTE | ~2024-01-15 | XR_ITS ---
EXAMINATION: XR HUMERUS, RIGHT CLINICAL INFORMATION: Fracture of humerus. COMPARISON: X-rays of the right humerus 01/01/2024. TECHNIQUE: AP and lateral views of the right humerus. FINDINGS: The spiral oblique fracture of the humerus redemonstrated. The fracture begins at the surgical neck and extends to the mid diaphyseal portion of the humerus. There is medial displacement of the distal half of the fracture measured up to 7 mm, approximately 20% shaft's width; this is unchanged. There has been partial reduction of the fracture in that there is minimal, if any, angulation of the fracture which is new compared to prior where the fracture was angulated apex medial. No callus formation demonstrated. There is mild arthrosis of the glenohumeral joint. XR/XR humerus RT IMPRESSION: Spiral oblique fracture of the humerus with partial reduction compared with the prior x-ray.
== END 2024-01-15 08:36 | disposition home or self-care (01) ==
LOC: HO.HOSX 08:35
PROVIDERS: Visit Provider Physician Assistant
DX: S42.301A Unspecified fracture of shaft of humerus, right arm, initial encounter for closed fracture (principal); W19.XXXA Unspecified fall, initial encounter; Y93.9 Activity, unspecified; Y92.9 Unspecified place or not applicable; Y99.9 Unspecified external cause status
CPT/HCPCS: 73060; 99212

== ENCOUNTER 2024-02-12 07:40 | Outpatient (REF) | payer MEDICARE, SELFPAY ==
--- NOTE | ~2024-02-12 | XR_ITS ---
EXAMINATION: XR HUMERUS, RIGHT CLINICAL INFORMATION: Fracture of humerus COMPARISON: Prior radiographs most recent 01/15/2024 TECHNIQUE: AP and lateral views of the right humerus. FINDINGS: The spiral oblique fracture the humeral proximal diaphysis is redemonstrated with perhaps slight decreased displacement compared to prior examination. Comparison of alignment is slightly limited because of slight differences in projection. There is some ossification along the area the fracture compatible with heterotopic ossification or developing callus. No significant angulation. Remaining bone and soft tissues unremarkable. XR/XR humerus RT IMPRESSION: Findings suggestive of some interval fracture healing versus heterotopic ossification surrounding the humerus fracture with possible improvement in alignment
== END 2024-02-12 07:41 | disposition home or self-care (01) ==
LOC: HO.HOSX 07:40
PROVIDERS: Visit Provider Physician Assistant
DX: S42.301D Unspecified fracture of shaft of humerus, right arm, subsequent encounter for fracture with routine healing (principal)
CPT/HCPCS: 73060; 99212

== ENCOUNTER 2024-02-12 08:49 | Outpatient (AMB) | payer MEDICARE, SELFPAY ==
--- NOTE | 2024-02-12 08:53 | A.OFFVIS_ITS ---
Vital Signs 02/12/24 08:54 Height 5 ft 5 in Weight 229 lb BMI 38.1 Intake Visit Reasons: ov- right humeral fx, DOI 01/01/24 Intake Note: Blanca is a 83 year old right hand dominant female who presents today for a follow up s/p right humeral fx, DOI 01/01/24. Patient reports having no pain at the moment but just having some soreness. She has been working with O.T for her right hand but not her arm. Allergies No Known Allergies Allergy (Verified 02/12/24 08:58) HPI HPI ov- right humeral fx, DOI 01/01/24: Details: 83-year-old right hand dominant female who presents in the office today for a follow up of a right humeral fracture, which occurred on status post a falling forward on her porch that occurred the same day. I last saw the patient in the office on 02/12/2024 when she was placed in a thermal molded splint and given lifting restrictions. I also demonstrated ROM exercises for the elbow, wrist, and hand. While in the office today the patient reports no pain. She does report mild soreness. Patient has a significant medical history of diabetes mellitus. [facility] Medical History History of breast cancer Elevated cholesterol HTN (hypertension) History of colon cancer Invasive ductal carcinoma of left breast Left breast mass Obesity Post-menopausal Screening for breast cancer Obesity Type 2 diabetes mellitus with hyperlipidemia Diabetes mellitus Surgical History History of lumpectomy of left breast (~2020) History of colonoscopy H/O arthroscopy of knee H/O rectal polypectomy H/O basal cell carcinoma excision History of arthroscopy of right knee S/P right colectomy History of lumbar laminectomy History of cholecystectomy Family History Father Parkinsons disease Mother Past heart attack Family/Other Diabetes Social History Household Members: Spouse Housing: House Alcohol intake: current Alcohol intake frequency: a few times a week Alcohol type: wine Patient Tobacco Use Status: Never used Tobacco e-Cigarette/Vaping Use: Never Used Second Hand Smoke Exposure: No Advance Directives Date on File: 07/05/21 service: No Current occupational status: retired Cognitive needs: No Hearing needs: No Vision needs: Yes Female Reproductive History Menstrual Age of Menarche: 11 Review of Systems Const All systems reviewed & are unremarkable except as noted in HPI and below Physical Exam Vital Signs: BMI result Body Mass Index 38.1 Const General: cooperative, healthy appearing and no acute distress Resp Effort & Inspection: normal respiratory effort and able to speak in complete sentences Cardio Rate: regular rate Peripheral pulses: Peripheral pulses 2+ throughout GI Palpation (GI): Soft to palpation Skin Lesions: no lesions Rashes: no rashes Extrem Other: Right upper extremity: Right proximal humerus normal to inspection. Resolving ecchymosis. Able to flex and extend at the wrist. Some residual edema is located over the dorsal aspect of the right hand. Able to perform finger cross, okay sign, and thumbs up without deficit. Sensation intact. Radial pulse intact. Assessment & Plan Assessment & Plan (1) Right humeral fracture: Code(s): S42.301A - Unspecified fracture of shaft of humerus, right arm, initial encounter for closed fracture Category: Medical Qualifiers: Encounter type: initial encounter Fracture morphology: unspecified fracture morphology Fracture type: closed Humerus Location: shaft Qualified Code(s): S42.301A - Unspecified fracture of shaft of humerus, right arm, initial encounter for closed fracture Plan Ms. Manuel is a 83-year-old right hand dominant female who presents in the office today for a follow up of a right humeral fracture, which occurred on status post a falling forward on her porch that occurred the same day. I last saw the patient in the office on 02/12/2024 when she was placed in a thermal molded splint and given lifting restrictions. I also demonstrated ROM exercises for the elbow, wrist, and hand. While in the office today the patient reports no pain. She does report mild soreness. Patient has a significant medical history of diabetes mellitus. Patient will continue to use the humeral fracture brace. She will continue to attend occupational therapy. She is okay to work on ROM of the elbow, hand, and wrist. She can also begin to work on pendulum exercises for the right shoulder. A new order for occupational therapy was placed today, as she has 2 more sessions scheduled. Follow up will be in 4 weeks with repeat x-rays, or sooner if needed. Orders: Orders XR humerus RT Today S42.301A - Unspecified fracture of shaft of humerus, right arm, initial encounter for closed fracture OT Evaluation and Treatment Today S42.301A - Unspecified fracture of shaft of humerus, right arm, initial encounter for closed fracture Patient Instructions: Scribed by Danay Campos medical education coordinator, for Jennifer Loera PA-C on 02/12/2024 at 8:52 am, EST. Coding Level of Care Code Global (87686) Diagnoses Closed fracture of shaft of right humerus, unspecified fracture morphology, initial encounter S42.301A Encounter type: initial encounter Fracture morphology: unspecified fracture morphology Fracture type: closed Humerus Location: shaft
[2024-02-12 08:54] VITALS: BMI 38.1
== END 2024-02-12 09:13 | disposition home or self-care (01) ==
PROVIDERS: PCP Internal Medicine; Visit Provider Physician Assistant
DX: S42.301A Unspecified fracture of shaft of humerus, right arm, initial encounter for closed fracture (principal)
CPT/HCPCS: 99213

== ENCOUNTER 2024-03-10 08:53 | Outpatient (AMB) | payer MEDICARE, SELFPAY ==
--- NOTE | 2024-03-10 09:05 | MHC.OFFVIS ---
Intake Visit Reasons: OV - right humeral fx, DOI 01/01/24 Intake Note: Blanca is a 83 year old right hand dominant female who presents today for a follow up s/p right humeral fx, DOI 01/01/24. Patient reports she is doing well. She states that PT is helping her with her pain and mobility. Do pain or discomfort at the moment. No other questions or concerns. She expresses when is she able to drive. Allergies No Known Allergies Allergy (Verified 03/10/24 09:20) HPI HPI OV - right humeral fx, DOI 01/01/24: Details: 83-year-old right hand dominant female who presents in the office today for a follow-up of a right humeral fracture, which occurred on status post falling forward on her porch. I last saw the patient in the office on 02/12/2024, when she was advised to continue to use the humeral fracture brace and to attend occupational therapy. ? While in the office today the patient reports that she is doing well overall. She states that PT is providing relief for her pain and mobility. She is experiencing?no pain or discomfort currently.?Denies any other questions or concerns. She inquires about when she will be able to drive.? Patient have a significant medical history of diabetes mellitus. [facility] Medical History History of breast cancer Elevated cholesterol HTN (hypertension) History of colon cancer Invasive ductal carcinoma of left breast Left breast mass Obesity Post-menopausal Screening for breast cancer Obesity Type 2 diabetes mellitus with hyperlipidemia Diabetes mellitus Surgical History History of lumpectomy of left breast (~2020) History of colonoscopy H/O arthroscopy of knee H/O rectal polypectomy H/O basal cell carcinoma excision History of arthroscopy of right knee S/P right colectomy History of lumbar laminectomy History of cholecystectomy Family History Father Parkinsons disease Mother Past heart attack Family/Other Diabetes Social History Household Members: Spouse Housing: House Alcohol intake: current Alcohol intake frequency: a few times a week Alcohol type: wine Patient Tobacco Use Status: Never used Tobacco e-Cigarette/Vaping Use: Never Used Second Hand Smoke Exposure: No Advance Directives Date on File: 07/05/21 service: No Current occupational status: retired Cognitive needs: No Hearing needs: No Vision needs: Yes Female Reproductive History Menstrual Age of Menarche: 11 Review of Systems Const All systems reviewed & are unremarkable except as noted in HPI and below Physical Exam Const General: cooperative, healthy appearing and no acute distress Resp Effort & Inspection: normal respiratory effort and able to speak in complete sentences Cardio Rate: regular rate Peripheral pulses: Peripheral pulses 2+ throughout GI Palpation (GI): Soft to palpation Skin Lesions: no lesions Rashes: no rashes Extrem Other: Right upper extremity: Normal to inspection. No ecchymosis, erythema, or edema. Able to reach the top of head, able to reach the back pocket, and mouth to feed herself. Full ROM of the elbow, hand, and wrist. NVI.? Assessment & Plan Assessment & Plan (1) Right humeral fracture: Code(s): S42.301A - Unspecified fracture of shaft of humerus, right arm, initial encounter for closed fracture Category: Medical Qualifiers: Encounter type: initial encounter Fracture morphology: unspecified fracture morphology Fracture type: closed Humerus Location: shaft Qualified Code(s): S42.301A - Unspecified fracture of shaft of humerus, right arm, initial encounter for closed fracture Plan Ms. Manuel is an 83-year-old right hand dominant female who presents in the office today for a follow-up of a right humeral fracture, which occurred on status post falling forward on her porch. I last saw the patient in the office on 02/12/2024 when she was advised to continue to use the humeral fracture brace and to attend occupational therapy. ? While in the office today the patient reports that she is doing well overall. She states that PT is providing relief for her pain and mobility. She is experiencing?no pain or discomfort currently.?Denies any other questions or concerns. She inquires about when she will be able to drive.? She can remove the humeral fracture brace at this time. She has two more physical therapy sessions that she will attend until she has completed all sessions. Follow-up will be PRN, or sooner if needed.? X-rays of the right humerus which were obtained while in the office today and were reviewed by me, Peace Loera PA-C, revealed bony healing around the mid-shaft humerus fracture.? Orders: Orders XR humerus RT Today S42.301A - Unspecified fracture of shaft of humerus, right arm, initial encounter for closed fracture Patient Instructions: Scribed by [facility], for Jennifer Loera PA-C on 03/10/2024 at?9:10 AM EST.? Coding Level of Care Code Global (42493) Diagnoses Closed fracture of shaft of right humerus, unspecified fracture morphology, initial encounter S42.301A Encounter type: initial encounter Fracture morphology: unspecified fracture morphology Fracture type: closed Humerus Location: shaft
== END 2024-03-10 09:27 | disposition home or self-care (01) ==
PROVIDERS: PCP Internal Medicine; Visit Provider Physician Assistant
DX: S42.301A Unspecified fracture of shaft of humerus, right arm, initial encounter for closed fracture (principal)
CPT/HCPCS: 99213

== ENCOUNTER 2024-03-10 11:42 | Outpatient (REF) | payer MEDICARE, SELFPAY ==
--- NOTE | ~2024-03-10 | XR_ITS ---
EXAMINATION: XR HUMERUS, RIGHT CLINICAL INFORMATION: Unspecified fracture of shaft of humerus right. COMPARISON: 02/12/2024, 01/15/2024. TECHNIQUE: AP and lateral views of the right humerus. 3 views total. FINDINGS: Bones are diffusely demineralized. Redemonstration of a spiral oblique fracture of the proximal humeral diaphysis with overriding and displacement of fracture fragments. There has been abundant interval bridging callus formation/heterotopic ossification, although fracture lines are still visible. XR/XR humerus RT IMPRESSION: Healing displaced spiral oblique fracture of the proximal humeral diaphysis.
== END 2024-03-10 11:43 | disposition home or self-care (01) ==
LOC: HO.HOSX 11:42
PROVIDERS: Visit Provider Physician Assistant
DX: S42.301D Unspecified fracture of shaft of humerus, right arm, subsequent encounter for fracture with routine healing (principal); X58.XXXD Exposure to other specified factors, subsequent encounter
CPT/HCPCS: 73060; 99212

== ENCOUNTER 2024-03-17 09:00 | Outpatient (RCR) | payer MEDICARE, SELFPAY ==
--- NOTE | 2024-01-28 12:37 | MHC.OT.EP ---
[address] [phone] Occupational Therapy Plan of Care Patient Name: Blanca Manuel Date of Evaluation: 01/28/24 Diagnosis: Displaced and impacted fracture of the proximal to mid humeral shaft. Pain Location: 0-3/10 right upper arm and shoulder Pain Score: 3 Pain Scale Used: Numeric (0 - 10) Aggravating Factors: Arm movement out of the sling Alleviating Factors: Assessment: Blanca isn and 84 yo female 4 wks s/p displaced and impacted fracture of the proximal to mid humeral shaft due to a fall at home, tripping over an entry door threshold. 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 and faint chondrocalcinosis in the wrist. She is now wearing a humeral brace and adding the arm sling for protection out of her home Today she present with impairments in right UE from shoulder to hand. Right hand dexterity is WFL however limited due to limited use of the UE to protect humeral fracture and promote healing Pt will benefit from OT to improve wrist and hand edema, ROM and dexterity. PT orders to address proximal UE impairments. Frequency and Duration: The patient will be seen 2x wk x 6 wks Short Term Goals: Indep wiht distal right UE ther ex and dexterity ex Decrease wrist edema by 1 cm to 18 cm Decrease hand edema by 1.5 cm to 20 cm Digits flex with tips 2-5 to palm Retirement Goals: Wrist ext to 50 deg Digits 2-5 to DPC Right carbonating stone cleaner to > 20 lb Wrist and hand edema improved Indep with HEP Treatment Plan: Therapeutic Exercise Therapeutic Activity Home Exercise Program Electronically Signed By: Merna Zurita OT CHT CLT Please Sign and return to therapist. Thank you once again for your referral.
== END 2024-03-17 11:57 | disposition home or self-care (01) ==
LOC: HO.OT 09:00
PROVIDERS: PCP Internal Medicine; Visit Provider Physician Assistant
DX: S42.301D Unspecified fracture of shaft of humerus, right arm, subsequent encounter for fracture with routine healing (principal)
CPT/HCPCS: 97035; 97110; 97140; 97166; 97535

== ENCOUNTER 2024-04-05 07:16 | Outpatient (REF) | payer MEDICARE, SELFPAY ==
[2024-04-05 08:10] LABS: Estimated Average Glucose 137 mg/dL; Hemoglobin A1c % 6.4 % (<6.0)
[2024-04-05 08:29] LABS: Cholesterol 143 mg/dL (<200); Glucose Fasting 129 mg/dL (60-99); HDL Cholesterol 55 mg/dL (>40); LDL Cholesterol Calculated 63 mg/dL (<100); Triglycerides 126 mg/dL (<150)
== END 2024-04-05 07:17 | disposition home or self-care (01) ==
LOC: HO.LAB 07:16
PROVIDERS: PCP Internal Medicine; Visit Provider Internal Medicine
DX: R73.9 Hyperglycemia, unspecified (principal); E78.5 Hyperlipidemia, unspecified
CPT/HCPCS: 36415; 80061; 82947; 83036

== ENCOUNTER 2024-04-11 08:30 | Outpatient (AMB) | payer MEDICARE, SELFPAY ==
--- NOTE | 2024-04-11 08:35 | A.OFFPC_ITS ---
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 Accompanied by: Self / Same As Patient Allergies No Known Allergies Allergy (Verified 04/11/24 08:37) Medication List - Last Reconciled 04/11/24 by Jordan Wilkinson MD aspirin (Adult Low Dose Aspirin) 81 mg PO DAILY lisinopril 5 mg PO DAILY lovastatin 40 mg PO DAILY metformin ER 500 mg PO QPM metoprolol succinate ER 100 mg PO DAILY pioglitazone 45 mg PO DAILY tramadol 50 mg PO Q6H PRN Tobacco use date assessed: 12/11/23 Fall risk assessment: 1 Fall in past year Last assessed Fall Risk: 04/11/24 Dental Screening Dental Screen Date: 12/11/23 HPI 3mth f/u HPI Details DM HTN and hyperlipidemia on rx; doing well and compliant [facility] Medical History History of breast cancer Elevated cholesterol HTN (hypertension) History of colon cancer Invasive ductal carcinoma of left breast Left breast mass Obesity Post-menopausal Screening for breast cancer Obesity Type 2 diabetes mellitus with hyperlipidemia Diabetes mellitus Surgical History History of lumpectomy of left breast (~2020) History of colonoscopy H/O arthroscopy of knee H/O rectal polypectomy H/O basal cell carcinoma excision History of arthroscopy of right knee S/P right colectomy History of lumbar laminectomy History of cholecystectomy Family History Father Parkinsons disease Mother Past heart attack Family/Other Diabetes Social History Household Members: Spouse Housing: House Alcohol intake: current Alcohol intake frequency: a few times a week Alcohol type: wine Patient Tobacco Use Status: Never used Tobacco e-Cigarette/Vaping Use: Never Used Second Hand Smoke Exposure: No Advance Directives Date on File: 07/05/21 service: No Current occupational status: retired Cognitive needs: No Hearing needs: No Vision needs: Yes Female Reproductive History Menstrual Age of Menarche: 11 Questionnaire Thrive Questionnaire Date Thrive assessed: 12/11/23 JANA-7 AMB Questionnaire JANA-7 Date JANA - 7 assessed: 12/11/23 Source: Developed by Drs. Luis Felipe Gallego, Breann Boyd, Felipe Main and colleagues, with an educational mercedes from [employer]. Review of Systems Const Denies chills, Denies headache(s) and Denies weight loss ENT Denies headache(s) Card Denies chest pain, Denies syncope, Denies irregular heart rhythm and Denies dyspnea Resp Denies chest congestion, Denies cough and Denies dyspnea GI Denies abdominal pain, Denies change in stool character, Denies nausea and Denies vomiting Musc Denies deformity and Denies joint swelling Neuro Denies syncope and Denies headache(s) Physical exam (Primary Care) Vital Signs: Last Vital Signs Pulse 66 04/11/24 08:36 BP 154/60 H 04/11/24 08:36 Pulse Ox 98 04/11/24 08:36 Oxygen Delivery Method Room Air 04/11/24 08:36 BMI result Body Mass Index 37.3 Tobacco/Smoking Status: Tobacco use Status Tobacco use date assessed 12/11/23 04/11/24 08:35 Patient Tobacco Use Status Never used Tobacco 04/11/24 08:35 e-Cigarette/Vaping Use Never Used 04/11/24 08:35 Thrive Assessment: Date of Thrive Assessment Date Thrive assessed 12/11/23 04/11/24 08:35 Const General: cooperative, comfortable, no acute distress and alert Neck Neck: Yes no lymphadenopathy Thyroid: Thyroid normal Resp Effort & Inspection: normal respiratory effort Auscultation: clear to auscultation bilaterally Percussion: percussion normal Cardio Jugular venous distension: no JVD Palpation: normal PMI Rate: regular rate Rhythm: regular rhythm Heart sounds: S1 normal heart sound present and S2 normal heart sound present GI Inspection: Yes normal to inspection Palpation (GI): No hepatosplenomegaly present Skin General skin exam: no rashes or lesions noted Extrem General: Yes no clubbing, cyanosis or edema Assessment and Plan Assessment & Plan (1) Hypertension: Code(s): I10 - Essential (primary) hypertension Plan: stable; same rx (2) Hyperlipidemia: Code(s): E78.5 - Hyperlipidemia, unspecified Plan: stable ;same rx (3) Type 2 diabetes mellitus with hyperlipidemia: Code(s): E11.69 - Type 2 diabetes mellitus with other specified complication; E78.5 - Hyperlipidemia, unspecified Plan: stable ;same rx Orders: Orders US thyroid Today E04.1 - Nontoxic single thyroid nodule Glucose Fasting Today R73.9 - Hyperglycemia, unspecified Thyroid Stimulating Hormone Today Z13.29 - Encounter for screening for other suspected endocrine disorder Hemoglobin A1c Today R73.9 - Hyperglycemia, unspecified Coding Level of Care Code Est Pt Level 4 (19258) Diagnoses Hypertension I10 Hyperlipidemia E78.5 Type 2 diabetes mellitus with hyperlipidemia E11.69; E78.5
[2024-04-11 08:36] VITALS: BP 154/60; PULSE 66; O2SAT 98; BMI 37.3
== END 2024-04-11 09:11 | disposition home or self-care (01) ==
PROVIDERS: PCP Internal Medicine; Visit Provider Internal Medicine
DX: I10 Essential (primary) hypertension (principal); E78.5 Hyperlipidemia, unspecified; E11.69 Type 2 diabetes mellitus with other specified complication
CPT/HCPCS: 99214

== ENCOUNTER 2024-04-25 08:42 | Outpatient (REF) | payer MEDICARE, SELFPAY ==
--- NOTE | ~2024-04-25 | US_ITS ---
EXAMINATION: US THYROID CLINICAL INFORMATION: Nontoxic single thyroid nodule. COMPARISON: CT cervical spine 01/01/2024. TECHNIQUE: Linear transducer grayscale and color Doppler examination with attention to the region of the thyroid. FINDINGS: SIZE: Measurements of the thyroid lobes and nodules are given in sagittal, anteroposterior and transverse dimensions respectively. Right Thyroid Lobe: 4.3 x 2.1 x 1.6 cm, volume 7.8 mL. Parenchyma: The gland echotexture is heterogeneous. Thyroid vascularity is normal. Left Thyroid Lobe: 4.5 x 1.4 x 1.5 cm, volume 5.0 mL. Parenchyma: The gland echotexture is heterogeneous. Thyroid vascularity is normal. Isthmus: 0.4 cm in maximum AP dimension. Estimated total number of nodules greater than or equal to 1 cm: 2. Menagerie Superintendent nodules are described as follows: 1. Location: Left lower pole. Size: 0.7 x 0.7 x 0.6 cm, volume 0.157 mL. Nodule characteristics: Composition: Solid (2). Echogenicity: Hypoechoic (2). Shape: Not taller than wide (0). Margins: Smooth (0). Echogenic Foci: None (0). ACR TI-RADS total points: 4. ACR TI-RADS category: 4. 2. Location: Left upper pole. Size: 0.5 x 0.5 x 0.3 cm, volume 0.41 mL. Nodule characteristics: Composition: Spongiform (0). ACR TI-RADS total points: 0. ACR TI-RADS category: 1. 3. Location: Right upper pole. Size: 0.7 x 0.8 x 0.5 cm, volume 0.140 mL. Nodule characteristics: Composition: Spongiform (0). ACR TI-RADS total points: 0. ACR TI-RADS category: 1. 4. Location: Right midpole. Size: 1.1 x 0.9 x 0.9 cm, volume 0.483 mL. Nodule characteristics: Composition: Spongiform (0). ACR TI-RADS total points: 0. ACR TI-RADS category: 1. 5. Location: Right mid pole. Size: 1.0 x 0.8 x 0.5 cm, volume 0.216 mL. Nodule characteristics: Composition: Spongiform (0). ACR TI-RADS total points: 0. ACR TI-RADS category: 1. NODES: No lymphadenopathy is seen in the tissue surrounding the thyroid gland. US/US thyroid IMPRESSION: 0.7 cm left lower TR4 thyroid nodule. Additional TR1 thyroid nodules as detailed above. ACR TI-RADS RECOMMENDATION REFERENCE: Ultrasound-guided fine-needle aspiration, followup ultrasound, no further follow up. * TR1 (0 point) and TR2 (2 points): No FNA or follow up. * TR3 (3 points): FNA if more than or equal to 2.5 cm in maximum dimension, followup ultrasound in 1, 3 and 5 years if 1.5 to 2.4 cm in maximum dimension. * TR4 (4-6 points): FNA if more than or equal to 1.5 cm in maximum dimension, followup ultrasound in 1, 2, 3 and 5 years if 1 to 1.4 cm in maximum dimension. * TR5 (more than or equal to 7 points): FNA if more than or equal to 1 cm in maximum dimension, followup ultrasound every year for 5 years if 0.5 to 0.9 cm in maximum dimension. * TR3, TR4 or TR5 nodules that are below the size threshold for followup receive no follow up.
== END 2024-04-25 08:43 | disposition home or self-care (01) ==
LOC: HO.US 08:42
PROVIDERS: PCP Internal Medicine; Visit Provider Internal Medicine
DX: E04.1 Nontoxic single thyroid nodule (principal)
CPT/HCPCS: 76536

== ENCOUNTER 2024-07-05 07:19 | Outpatient (REF) | payer MEDICARE, SELFPAY ==
[2024-07-05 08:01] LABS: Estimated Average Glucose 137 mg/dL; Hemoglobin A1c % 6.4 % (<6.0); Total Hemoglobin (HGBA1C) 2928.3835 umol/L
[2024-07-05 08:26] LABS: Glucose Fasting 122 mg/dL (60-99)
[2024-07-05 08:48] LABS: Thyroid Stimulating Hormone 2.08 uIU/mL (0.32-4.0)
== END 2024-07-05 07:20 | disposition home or self-care (01) ==
LOC: HO.LAB 07:19
PROVIDERS: PCP Internal Medicine; Visit Provider Internal Medicine
DX: R73.9 Hyperglycemia, unspecified (principal); Z13.29 Encounter for screening for other suspected endocrine disorder
CPT/HCPCS: 36415; 82947; 83036; 84443

== ENCOUNTER 2024-07-11 10:47 | Outpatient (REF) | payer MEDICARE, SELFPAY ==
--- NOTE | ~2024-07-11 | MM_ITS ---
EXAMINATION: MM DIAGNOSTIC DIGITAL BREAST TOMOSYNTHESIS, BILATERAL CLINICAL INFORMATION: Year 3 postop protocol, conservation therapeutic changes left breast; 07/09/2021 for diagnosis of invasive ductal carcinoma 2 sites, 6:00 retroareolar left breast with smaller satellite lesion; due for yearly. COMPARISON: Mammography: 07/07/2023, 07/03/2022, 06/26/2021, 06/19/2021, and exams dating to 2013. TECHNIQUE: Digital breast tomosynthesis is performed in both the craniocaudal and mediolateral oblique views along with computer-aided detection (CAD). Synthesized 2D images are generated from the tomosynthesis. In addition, 2-D spot compression left CC and ML views of the lumpectomy site were also obtained, as well as a full field 3-D added left CC view. FINDINGS: There are scattered areas of fibroglandular density (ACR BI-RADS breast composition Category b). There is redemonstration of post therapy changes on the left with decreased breast size, postoperative scarring, mild diffuse trabecular thickening, and smooth skin thickening. Since the prior exam, there has been significant scar retraction and mild keloid formation. There is no evidence of recurrent disease. The right breast shows no significant changes from prior studies. No developing density or interval mass or architectural abnormality. There are scattered bilateral round and ductal secretory calcifications again noted. No suspicious calcifications have developed. MM/MM tomosynthesis diagnostic BI IMPRESSION: -There are no significant changes from prior study. No current evidence of malignancy in either breast. -Post therapeutic changes left breast, undergoing further scar retraction and keloid formation. No evidence of recurrent disease. -This completes the postoperative protocol, and return to routine annual screening is recommended in one year. ASSESSMENT: BI-RADS BI-RADS 2 - Benign Findings RECOMMENDATION: 1 year F/U Results were provided to the patient at time of visit by the technologist. This patient's information was entered into a reminder system with a target due date for their next mammogram. Electronically signed by: Kenney Orr MD 07/11/2024 01:09 PM EDT
== END 2024-07-11 10:48 | disposition home or self-care (01) ==
LOC: HO.MAMMO 10:47
PROVIDERS: PCP Internal Medicine; Visit Provider Internal Medicine
DX: Z85.3 Personal history of malignant neoplasm of breast (principal)
CPT/HCPCS: 77062; 77066

== ENCOUNTER → 2024-07-11 11:00 | Outpatient (BNV) | payer MEDICARE, SELFPAY | PROVIDERS: PCP Internal Medicine; Visit Provider Radiology Diagnostic Radiology | DX: R92.1 Mammographic calcification found on diagnostic imaging of breast (principal); L90.5 Scar conditions and fibrosis of skin | CPT/HCPCS: 77066; G0279 ==

== ENCOUNTER 2024-07-12 09:16 | Outpatient (AMB) | payer MEDICARE, SELFPAY ==
[2024-07-12 09:17] VITALS: BP 162/64; PULSE 65; O2SAT 98; BMI 36.8
--- NOTE | 2024-07-12 09:17 | A.OFFPC_ITS ---
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 Accompanied by: Self / Same As Patient Allergies No Known Allergies Allergy (Verified 07/12/24 09:17) Medication List - Last Reconciled 07/12/24 by Jordan Wilkinson MD aspirin (Adult Low Dose Aspirin) 81 mg PO DAILY lisinopril 5 mg PO DAILY lovastatin 40 mg PO DAILY metformin ER 500 mg PO QPM metoprolol succinate ER 100 mg PO DAILY pioglitazone 45 mg PO DAILY tramadol 50 mg PO Q6H PRN Tobacco use date assessed: 12/11/23 Fall risk assessment: 1 Fall in past year (December 2023) Last assessed Fall Risk: 07/12/24 Dental Screening Dental Screen Date: 12/11/23 HPI 3mth f/u HPI Details has a multinodular goiter and FNA recommended; has been referred to [facility] Medical History History of breast cancer Elevated cholesterol HTN (hypertension) History of colon cancer Invasive ductal carcinoma of left breast Left breast mass Obesity Post-menopausal Screening for breast cancer Obesity Type 2 diabetes mellitus with hyperlipidemia Diabetes mellitus Surgical History History of lumpectomy of left breast (~2020) History of colonoscopy H/O arthroscopy of knee H/O rectal polypectomy H/O basal cell carcinoma excision History of arthroscopy of right knee S/P right colectomy History of lumbar laminectomy History of cholecystectomy Family History Father Parkinsons disease Mother Past heart attack Family/Other Diabetes Social History Household Members: Spouse Housing: House Alcohol intake: current Alcohol intake frequency: a few times a week Alcohol type: wine Patient Tobacco Use Status: Never used Tobacco Tobacco use type: Cigarette e-Cigarette/Vaping Use: Never Used Second Hand Smoke Exposure: No Advance Directives Date on File: 07/05/21 service: No Current occupational status: retired Cognitive needs: No Hearing needs: No Vision needs: Yes Female Reproductive History Menstrual Age of Menarche: 11 Questionnaire Thrive Questionnaire Date Thrive assessed: 12/11/23 AUDIT C Alcohol Use Questionnaire (AUDIT-C) 2. How many drinks containing alcohol do you have on a typical day when you are drinking?: 1 or 2 3. How often do you have six or more drinks on one occasion?: Never Total Score: 0 JANA-7 AMB Questionnaire JANA-7 Date JANA - 7 assessed: 12/11/23 Source: Developed by Drs. Luis Felipe Gallego, Breann Boyd, Felipe Main and colleagues, with an educational mercedes from [employer]. Review of Systems Const Denies chills, Denies headache(s) and Denies weight loss ENT Denies headache(s) Card Denies chest pain, Denies syncope, Denies irregular heart rhythm and Denies dyspnea Resp Denies chest congestion, Denies cough and Denies dyspnea GI Denies abdominal pain, Denies change in stool character, Denies nausea and Denies vomiting Musc Denies deformity and Denies joint swelling Neuro Denies syncope and Denies headache(s) Physical exam (Primary Care) Vital Signs: Last Vital Signs Pulse 65 07/12/24 09:17 BP 162/64 H 07/12/24 09:17 Pulse Ox 98 07/12/24 09:17 Oxygen Delivery Method Room Air 07/12/24 09:17 BMI result Body Mass Index 36.8 Tobacco/Smoking Status: Tobacco use Status Tobacco use date assessed 12/11/23 07/12/24 09:22 Patient Tobacco Use Status Never used Tobacco 07/12/24 09:22 Tobacco use type Cigarette 07/12/24 09:22 e-Cigarette/Vaping Use Never Used 07/12/24 09:22 Thrive Assessment: Date of Thrive Assessment Date Thrive assessed 12/11/23 07/12/24 09:22 Const General: cooperative, comfortable, no acute distress and alert Neck Neck: Yes no lymphadenopathy Thyroid: Thyroid normal Resp Effort & Inspection: normal respiratory effort Auscultation: clear to auscultation bilaterally Percussion: percussion normal Cardio Jugular venous distension: no JVD Palpation: normal PMI Rate: regular rate Rhythm: regular rhythm Heart sounds: S1 normal heart sound present and S2 normal heart sound present GI Inspection: Yes normal to inspection Palpation (GI): No hepatosplenomegaly present Skin General skin exam: no rashes or lesions noted Extrem General: Yes no clubbing, cyanosis or edema Coding Level of Care Code Est Pt Level 3 (87750) Diagnoses Multinodular goiter E04.2 Assessment & Plan Assessment & Plan (1) Multinodular goiter: Code(s): E04.2 - Nontoxic multinodular goiter Category: Medical Plan: TSH nl; referred to endo Orders: Orders Lipid Panel Today Z13.220 - Encounter for screening for lipoid disorders Glucose Fasting Today R73.9 - Hyperglycemia, unspecified Hemoglobin A1c Today R73.9 - Hyperglycemia, unspecified Referrals Endocrinology Referral E04.1 - Nontoxic single thyroid nodule
== END 2024-07-12 09:45 | disposition home or self-care (01) ==
PROVIDERS: PCP Internal Medicine; Visit Provider Internal Medicine
DX: E04.2 Nontoxic multinodular goiter (principal)

== ENCOUNTER → 2024-07-12 09:16 | Outpatient (BNVA) | payer MEDICARE, SELFPAY | PROVIDERS: PCP Internal Medicine; Visit Provider Internal Medicine | DX: E04.2 Nontoxic multinodular goiter (principal) | CPT/HCPCS: 99212 ==

== ENCOUNTER 2024-07-21 08:49 | Outpatient (AMB) | payer MEDICARE, SELFPAY ==
[2024-07-21 08:51] VITALS: BP 170/68; PULSE 64; BMI 37.2
--- NOTE | 2024-07-21 08:51 | A.OFFVIS_ITS ---
Vital Signs 07/21/24 08:51 Height 5 ft 5 in Weight 223 lb 5.252 oz BMI 37.2 BP 170/68 H Blood Pressure Location Lt brachial Position Sitting Pulse 64 Pulse Source Pulse Oximeter Intake Visit Reasons: Nontoxic single thyroid nodule-conf Intake Note: New patient present today for Nontoxic single thyroid nodule office visit. 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 also noted to have a recent fragility fracture She is here with today. Had a fall, and went to emergency room got imaging done and was found to have thyroid abnormalities. Had ultrasound in April 2024, I reviewed the images myself, shows bilateral nodules low risk. The right mid 1.1 cm nodule is spongiform in appearance. There is a left superior 0.7 cm nodule that is solid hypoechoic, tired category 4 however based on size does not meet criteria for FNA. Per CURT guidelines this is an intermediate suspicion nodule with a 10-20% chance of malignancy, however again based on size does not meet criteria for biopsy. TSH normal at 2.08 from 07/10/2024. Patient currently denies heat or cold intolerance, diarrhea or constipation, hair loss, palpitation, anxiety, weight changes, mood changes, low energy, changes in appearance of eyes or vision changes, tremors, increased diaphoresis or dry skin. ? Patient denies any difficulty swallowing, pain on swallowing or voice changes or difficulty breathing. Patient denies any history of childhood neck radiation. She did get radiation therapy for left breast cancer in 2020 s/p lumpectomy. Denies having ever used lithium, amiodarone or biotin supplements. Patient denies any family history of thyroid cancer or thyroid disease. 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: Negative History of kidney stones or disease: negative PI Use: Negative Chronic inflammatory lung disease: Negative Chronic inflammatory bowel disease: Negative Daily calcium intake:cheese once daily, yogurt once in a while Vitamin D intake: none Exercise:none , has bad knees, not very active but independent Smoking history:none Dental: Has regular dental cleaning, no issues Social history 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 Pulmonary: No SOB GI:No abdominal pain, no nausea or vomiting, no anorexia, no blood in stool : no burning micturition, dysuria or increase in urinary frequency Physical exam General: sitting comfortably in no acute distress HEENT: normocephalic/atraumatic, , moist oral mucosa Neck: supple, symmetrical, palpable 1 cm right-sided thyroid nodule, no dorsocervical or supraclavicular fat pads Cardiac: normal heart sounds Pulm: normal breath sounds B/L, no added breath sounds Abd: not distended, no tenderness Extremities: no edema, no signs of myxedema Neuro: AAO x3, Speech: normal, no facial droop, moving all 4 extremities Laboratory Tests 07/05/24 07:29 TSH 2.08 US THYROID 05/14 CLINICAL INFORMATION: Nontoxic single thyroid nodule. COMPARISON: CT cervical spine 01/01/2024. TECHNIQUE: Linear transducer grayscale and color Doppler examination with attention to the region of the thyroid. FINDINGS: SIZE: Measurements of the thyroid lobes and nodules are given in sagittal, anteroposterior and transverse dimensions respectively. Right Thyroid Lobe: 4.3 x 2.1 x 1.6 cm, volume 7.8 mL. Parenchyma: The gland echotexture is heterogeneous. Thyroid vascularity is normal. Left Thyroid Lobe: 4.5 x 1.4 x 1.5 cm, volume 5.0 mL. Parenchyma: The gland echotexture is heterogeneous. Thyroid vascularity is normal. Isthmus: 0.4 cm in maximum AP dimension. Estimated total number of nodules greater than or equal to 1 cm: 2. Motion Picture Photographer nodules are described as follows: 1. Location: Left lower pole. Size: 0.7 x 0.7 x 0.6 cm, volume 0.157 mL. Nodule characteristics: Composition: Solid (2). Echogenicity: Hypoechoic (2). Shape: Not taller than wide (0). Margins: Smooth (0). Echogenic Foci: None (0). ACR TI-RADS total points: 4. ACR TI-RADS category: 4. 2. Location: Left upper pole. Size: 0.5 x 0.5 x 0.3 cm, volume 0.41 mL. Nodule characteristics: Composition: Spongiform (0). ACR TI-RADS total points: 0. ACR TI-RADS category: 1. 3. Location: Right upper pole. Size: 0.7 x 0.8 x 0.5 cm, volume 0.140 mL. Nodule characteristics: Composition: Spongiform (0). ACR TI-RADS total points: 0. ACR TI-RADS category: 1. 4. Location: Right midpole. Size: 1.1 x 0.9 x 0.9 cm, volume 0.483 mL. Nodule characteristics: Composition: Spongiform (0). ACR TI-RADS total points: 0. ACR TI-RADS category: 1. 5. Location: Right mid pole. Size: 1.0 x 0.8 x 0.5 cm, volume 0.216 mL. Nodule characteristics: Composition: Spongiform (0). ACR TI-RADS total points: 0. ACR TI-RADS category: 1. NODES: No lymphadenopathy is seen in the tissue surrounding the thyroid gland. US/US thyroid IMPRESSION: 0.7 cm left lower TR4 thyroid nodule. Additional TR1 thyroid nodules as detailed above. BONE DENSITOMETRY 05/2021 CLINICAL INDICATION: Menopause. COMPARISON: Baseline BD dated 09/29/2008. TECHNIQUE: Using a [employer] DXA System (software version: 13.1) manufactured by [employer], dual-energy x-ray absorptiometry was performed of the lumbar spine and left hip. The images are of good technical quality. Summary results are attached. FINDINGS: AP SPINE L1-L2 (excluding L3 and L4): The data of L1-L4 has been changed to exclude the L3 and L4 vertebral bodies, because discrepant reading may be degenerative in nature at these levels may cause overestimation of lumbar spine density. Current: BMD 1.409 g/cm2, Z-score 3.0, T-score 2.0, normal, 3.0% decrease from baseline (<5% change is not significant). Baseline: BMD 1.453 g/cm2. LEFT FEMUR, NECK: Current: BMD 0.934 g/cm2, Z-score 0.9, T-score -0.7, normal. Baseline: BMD 1.126 g/cm2. LEFT FEMUR, TOTAL: Current: BMD 1.039 g/cm2, Z-score 1.7, T-score 0.3, normal, 18.4% decrease from baseline (<5% change is not significant). Baseline: BMD 1.273 g/cm2. IDENTIFIED RISK FACTORS: Menopause. HISTORY OF FRACTURE: None listed. MEDICATIONS: Vitamin D. MM/XR DEXA axial skeleton IMPRESSION: 1. DIAGNOSIS: Normal bone density based on the lowest T-score value of -0.7 in the femoral neck applying World Health Organization criteria. 2. 10-YEAR FRACTURE RISK PREDICTION, FRAX: Major osteoporotic fracture (clinical spine, forearm, hip or shoulder) 10.0%. Hip fracture 1.9%. FORMERLY [facility] Medical History History of breast cancer Elevated cholesterol HTN (hypertension) History of colon cancer Invasive ductal carcinoma of left breast Left breast mass Obesity Post-menopausal Screening for breast cancer Obesity Type 2 diabetes mellitus with hyperlipidemia Diabetes mellitus Surgical History History of lumpectomy of left breast (~2020) History of colonoscopy H/O arthroscopy of knee H/O rectal polypectomy H/O basal cell carcinoma excision History of arthroscopy of right knee S/P right colectomy History of lumbar laminectomy History of cholecystectomy Family History Father Parkinsons disease Mother Past heart attack Family/Other Diabetes Social History Household Members: Spouse Housing: House Alcohol intake: current Alcohol intake frequency: a few times a week Alcohol type: wine Patient Tobacco Use Status: Never used Tobacco Tobacco use type: Cigarette e-Cigarette/Vaping Use: Never Used Second Hand Smoke Exposure: No Advance Directives Date on File: 07/05/21 service: No Current occupational status: retired Cognitive needs: No Hearing needs: No Vision needs: Yes Female Reproductive History Menstrual Age of Menarche: 11 Physical Exam Vital Signs: Last Vital Signs Pulse 64 07/21/24 08:51 BP 170/68 H 07/21/24 08:51 BMI result Body Mass Index 37.2 Assessment & Plan Assessment & Plan (1) Multinodular goiter: Code(s): E04.2 - Nontoxic multinodular goiter Category: Medical Plan: Patient with no family history of thyroid cancer, who did receive radiation for breast cancer in 2020, coming in today for thyroid nodules diagnosed in April of 2024. She does not have any compressive symptoms. She is biochemically euthyroid, normal TSH from April 2024. Had ultrasound in April 2024, I reviewed the images myself, shows bilateral nodules low risk. The right mid 1.1 cm nodule is spongiform in appearance. There is a left superior 0.7 cm nodule that is solid hypoechoic, tired category 4 however based on size does not meet criteria for FNA. Per CURT guidelines this is an intermediate suspicion nodule with a 10-20% chance of malignancy, however again based on size does not meet criteria for biopsy. We will have her repeat an ultrasound in 1 year. I explained that it is common to have thyroid nodules. About 95% of the time these nodules are benign. However if the nodule is > 1 cm in size or suspicious on ultrasound then a fine need aspiration biopsy is recommended. At this time none of her nodules meet criteria for biopsy. Plan: -ordered thyroid ultrasound for April 2025 -ordered TSH, free T4 to be done in April 2025 (2) Osteoporosis: Code(s): M81.0 - Age-related osteoporosis without current pathological fracture Category: Medical Qualifiers: Osteoporosis type: age-related Presence of current pathological fracture: without current pathological fracture Qualified Code(s): M81.0 - Age- related osteoporosis without current pathological fracture Plan: Patient had recent fragility fracture of the right humerus in December 2023. She fell from standing height. Right humerus is an osteoporosis defining fracture. She had a bone density in May 2021 that was normal. However given fragility fracture she meets criteria for osteoporosis. Her-risk factors are age, being postmenopausal, poor nutritional intake of calcium and vitamin-D. I discussed conservative measures including adequate calcium intake, adequate vitamin D levels as well as the role of weightbearing exercises in general being good for bone health. In addition to conservative management with calcium and vitamin D; I do believe she would benefit from antiresorptive therapy in terms of reducing future fracture risk. Prior to initiating therapy I would like her to complete work-up to get baseline bone turnover markers as well as rule out secondary causes of osteoporosis. Plan: Ordered bone density Ordered fasting blood work and urine test Start vitamin D 1000 units daily Start taking calcium in your diet and supplements the rest to make for 1000 mg intake daily Weight bearing exercise as discussed Plan I spent 45 minutes in reviewing the record, seeing the patient and documenting in the medical record. Orders: Orders Thyroid Stimulating Hormone 1 Year E04.2 - Nontoxic multinodular goiter Free T4 (Free Thyroxine) 1 Year E04.2 - Nontoxic multinodular goiter Calcium Today M81.0 - Age-related osteoporosis without current pathological fracture, S42.301A - Unspecified fracture of shaft of humerus, right arm, initial encounter for closed fracture Parathyroid Hormone Intact Today M81.0 - Age-related osteoporosis without current pathological fracture, S42.301A - Unspecified fracture of shaft of humerus, right arm, initial encounter for closed fracture Immunofixation Pnl, Serum Today M81.0 - Age-related osteoporosis without current pathological fracture, S42.301A - Unspecified fracture of shaft of humerus, right arm, initial encounter for closed fracture Basic Metabolic Panel Today M81.0 - Age-related osteoporosis without current pathological fracture, S42.301A - Unspecified fracture of shaft of humerus, right arm, initial encounter for closed fracture Calcium, Random Urine Today M81.0 - Age-related osteoporosis without current pathological fracture, S42.301A - Unspecified fracture of shaft of humerus, right arm, initial encounter for closed fracture Creatinine Urine Today M81.0 - Age-related osteoporosis without current pathological fracture, S42.301A - Unspecified fracture of shaft of humerus, right arm, initial encounter for closed fracture US thyroid 04/26/25 E04.2 - Nontoxic multinodular goiter Albumin Level Today M81.0 - Age-related osteoporosis without current pathological fracture, S42.301A - Unspecified fracture of shaft of humerus, right arm, initial encounter for closed fracture Alkaline Phosphatase Bone Today M81.0 - Age-related osteoporosis without current pathological fracture, S42.301A - Unspecified fracture of shaft of humerus, right arm, initial encounter for closed fracture Collagen Type I C-Telopeptide Today M81.0 - Age-related osteoporosis without current pathological fracture, S42.301A - Unspecified fracture of shaft of humerus, right arm, initial encounter for closed fracture Phosphorus Today M81.0 - Age-related osteoporosis without current pathological fracture, S42.301A - Unspecified fracture of shaft of humerus, right arm, initial encounter for closed fracture Vitamin D 25-OH Total Today M81.0 - Age-related osteoporosis without current pathological fracture, S42.301A - Unspecified fracture of shaft of humerus, right arm, initial encounter for closed fracture Protein Electrophoresis, Serum Today M81.0 - Age-related osteoporosis without current pathological fracture, S42.301A - Unspecified fracture of shaft of humerus, right arm, initial encounter for closed fracture Magnesium Today M81.0 - Age-related osteoporosis without current pathological fracture, S42.301A - Unspecified fracture of shaft of humerus, right arm, ini tial encounter for closed fracture XR DEXA axial skeleton Today M81.0 - Age-related osteoporosis without current pathological fracture, S42.301A - Unspecified fracture of shaft of humerus, right arm, initial encounter for closed fracture Medications: New cholecalciferol (vitamin D3) 25 mcg PO DAILY 30 caps 6RF Patient Instructions: Do bone density Do fasting blood work and urine test Start vitamin D 1000 units daily Start taking calcium in your diet and supplements the rest to make for 1000 mg intake daily Weight bearing exercise as discussed For your thyroid we will repeat US April 2025 with thyroid blood work Coding Level of Care Code New Pt Level 4 (23849) Diagnoses Multinodular goiter E04.2 Age-related osteoporosis without current pathological fracture M81.0 Osteoporosis type: age-related Presence of current pathological fracture: without current pathological fracture Time Spent (min) 45
== END 2024-07-21 09:43 | disposition home or self-care (01) ==
LOC: HO.ENCR 08:50
PROVIDERS: PCP Internal Medicine; Visit Provider Student in an Organized Health Care Education/Training Program
DX: E04.2 Nontoxic multinodular goiter (principal); M81.0 Age-related osteoporosis without current pathological fracture
CPT/HCPCS: 99204

== ENCOUNTER → 2024-07-21 08:49 | Outpatient (BNVA) | payer MEDICARE, SELFPAY | PROVIDERS: PCP Internal Medicine; Visit Provider Student in an Organized Health Care Education/Training Program | DX: M81.0 Age-related osteoporosis without current pathological fracture (principal); E04.2 Nontoxic multinodular goiter | CPT/HCPCS: 99202 ==

== ENCOUNTER 2024-07-25 09:35 | Outpatient (AMB) | payer MEDICARE, SELFPAY ==
[2024-07-25 09:42] VITALS: BMI 37.2
--- NOTE | 2024-07-25 09:42 | A.OFFVIS_ITS ---
Vital Signs 07/25/24 09:42 Height 5 ft 5 in Weight 223 lb 5.252 oz BMI 37.2 Intake Visit Reasons: yearly breast examination Intake Note: This patient presents for yearly breast examination. Pt c/o; reports no breast complaints. 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 of the left breast. She denies any palpable breast masses or nipple or skin changes. She says she feels well overall. She had a mammogram 2 weeks ago for surveillance. She is not on any hormonal treatment. HPI Comments Details: FORMERLY [facility], [facility] Medical History Osteoporosis History of breast cancer Elevated cholesterol HTN (hypertension) History of colon cancer Invasive ductal carcinoma of left breast Left breast mass Obesity Post-menopausal Screening for breast cancer Obesity Type 2 diabetes mellitus with hyperlipidemia Diabetes mellitus Surgical History History of lumpectomy of left breast (~2020) History of colonoscopy H/O arthroscopy of knee H/O rectal polypectomy H/O basal cell carcinoma excision History of arthroscopy of right knee S/P right colectomy History of lumbar laminectomy History of cholecystectomy Family History Father Parkinsons disease Mother Past heart attack Family/Other Diabetes Social History Household Members: Spouse Housing: House Alcohol intake: current Alcohol intake frequency: a few times a week Alcohol type: wine Patient Tobacco Use Status: Never used Tobacco Tobacco use type: Cigarette e-Cigarette/Vaping Use: Never Used Second Hand Smoke Exposure: No Advance Directives Date on File: 07/05/21 service: No Current occupational status: retired Cognitive needs: No Hearing needs: No Vision needs: Yes Female Reproductive History Menstrual Age of Menarche: 11 Review of Systems Const Denies chills and Denies fever(s) Card Denies chest pain, Denies dyspnea and Denies dyspnea on exertion Resp Denies cough, Denies dyspnea and Denies dyspnea on exertion GI Denies hematochezia and Denies change in bowel habits Denies hematuria Musc Denies back pain and Denies limited range of motion Neuro Denies focal weakness and Denies convulsions Psych Denies depression and Denies mood swings Physical Exam Vital Signs: BMI result Body Mass Index 37.2 Chest Other: No palpable breast masses, no nipple or skin changes, axillary lymphadenopathy Assessment & Plan Assessment & Plan (1) History of breast cancer: Code(s): Z85.3 - Personal history of malignant neoplasm of breast Category: Medical Plan: She continues to do well. She does not have any palpable breast masses or axillary lymphadenopathy. I have reviewed her mammogram from 2 weeks ago and this does not show any new lesions. I will see her again in the office next year. She was reminded to undergo another mammogram next year as well. Coding Level of Care Code Est Pt Level 3 (92641) Complex EM visit Add On G2211 Diagnoses History of breast cancer Z85.3
== END 2024-07-25 10:04 | disposition home or self-care (01) ==
LOC: HO.HGS 09:35
PROVIDERS: PCP Internal Medicine; Visit Provider Surgery
DX: Z85.3 Personal history of malignant neoplasm of breast (principal)
CPT/HCPCS: 99213; G2211

== ENCOUNTER → 2024-07-25 09:35 | Outpatient (BNVA) | payer MEDICARE, SELFPAY | PROVIDERS: PCP Internal Medicine; Visit Provider Surgery | DX: Z85.3 Personal history of malignant neoplasm of breast (principal) | CPT/HCPCS: 99212 ==

== ENCOUNTER 2024-08-17 09:03 | Outpatient (REF) | payer MEDICARE, SELFPAY ==
--- NOTE | ~2024-08-17 | MM_ITS ---
EXAMINATION: BONE DENSITOMETRY CLINICAL INDICATION: Age-related osteoporosis without current pathological fracture. COMPARISON: Previous BD dated 06/14/2021 and baseline BD dated 09/29/2008. TECHNIQUE: Using a [employer] DXA System (software version: 13.1) manufactured by [employer], dual-energy x-ray absorptiometry was performed of the lumbar spine and left hip. The images are of good technical quality. Summary results are attached. FINDINGS: LEFT FEMUR, NECK: Current: BMD 0.921 g/cm2, Z-score 0.8, T-score -0.8, normal. Prior: BMD 0.934 g/cm2. Baseline: BMD 1.126 g/cm2. LEFT FEMUR, TOTAL: Current: BMD 0.982 g/cm2, Z-score 1.3, T-score -0.2, normal, 5.5% decrease from previous, 22.9% decrease from baseline (<5% change is not significant). Prior: BMD 1.039 g/cm2. Baseline: BMD 1.273 g/cm2. AP SPINE L1-L2 (excluding L3 and L4): The data of L1-L4 has been changed to exclude the L3 and L4 vertebral bodies, because significant degenerative change at these levels may cause overestimation of lumbar spine density. Current: BMD 1.457 g/cm2, Z-score 3.2, T-score 2.4, normal, 3.4% increase from previous, 0.3% increase from baseline (<5% change is not significant). Prior: BMD 1.409 g/cm2. Baseline: BMD 1.453 g/cm2. IDENTIFIED RISK FACTORS: Menopause, history of fracture (adult). HISTORY OF FRACTURE: Humerus. MEDICATIONS: Vitamin D. MM/XR DEXA axial skeleton IMPRESSION: 1. DIAGNOSIS: Normal bone density based on the lowest T-score value of -0.8 in the femoral neck applying World Health Organization criteria. 2. 10-YEAR FRACTURE RISK PREDICTION, FRAX: According to the guidelines, FRAX calculation should only be performed on patients in the osteopenia bone density category. Therefore, FRAX was not performed on this patient. 3. Treatment Recommendations: NOF guidelines recommend consideration for treatment in postmenopausal women and men age 50 and older presenting with the following: -A hip or vertebral (clinical or morphometric) fracture. -T-score less than or equal to -2.5 at the femoral neck or spine after appropriate evaluation to exclude secondary causes. -Low bone mass at the hip or spine and a 10-year fracture probability by FRAX of greater than or equal to 3% for hip fracture or greater than or equal to 20% for major osteoporotic fracture based on the [place] adapted WHO algorithm. 4. Other Recommendations: All treatment decisions require clinical judgment and consideration of individual patient factors, including patient preferences, comorbidities, previous drug use, risk factors not captured in the FRAX model (e.g. frailty, falls, vitamin D deficiency, increased bone turnover, interval significant decline in bone density) and possible under or overestimation of fracture risk by FRAX. FUTURE SCAN RECOMMENDATION: People with diagnosed cases of osteoporosis or at high risk for fracture should have regular bone mineral density tests. For patients eligible for Medicare, routine testing is allowed once every 2 years. The testing frequency can be increased to one year for patients who have rapidly progressing disease, those who are receiving or discontinuing medical therapy to restore bone mass, or have additional risk factors. Electronically signed by: Giovanny Cheng MD 08/17/2024 11:54 AM MANSI GRANT
== END 2024-08-17 09:04 | disposition home or self-care (01) ==
LOC: HO.MAMMO 09:03
PROVIDERS: PCP Internal Medicine; Visit Provider Student in an Organized Health Care Education/Training Program
DX: M81.0 Age-related osteoporosis without current pathological fracture (principal); S42.301A Unspecified fracture of shaft of humerus, right arm, initial encounter for closed fracture
CPT/HCPCS: 77080

== ENCOUNTER 2024-11-02 07:14 | Outpatient (REF) | payer MEDICARE, SELFPAY ==
[2024-11-02 07:44] LABS: Estimated Average Glucose 140 mg/dL; Hemoglobin A1C 149.3465 umol/L; Hemoglobin A1c % 6.5 % (<6.0); Total Hemoglobin (HGBA1C) 3122.8448 umol/L
[2024-11-02 08:19] LABS: Cholesterol 144 mg/dL (<200); Glucose Fasting 124 mg/dL (60-99); HDL Cholesterol 56 mg/dL (>40); LDL Cholesterol Calculated 69 mg/dL (<100); Triglycerides 95 mg/dL (<150)
== END 2024-11-02 07:15 | disposition home or self-care (01) ==
LOC: HO.LAB 07:14
PROVIDERS: PCP Internal Medicine; Visit Provider Internal Medicine
DX: R73.9 Hyperglycemia, unspecified (principal); Z13.220 Encounter for screening for lipoid disorders; Z13.6 Encounter for screening for cardiovascular disorders
CPT/HCPCS: 36415; 80061; 82947; 83036

== ENCOUNTER 2024-11-14 09:17 | Outpatient (AMB) | payer MEDICARE, SELFPAY ==
--- NOTE | 2024-11-14 09:22 | MHC.PC.OV ---
Vital Signs 11/14/24 09:24 Height 5 ft 5 in Weight 221 lb 8 oz BMI 36.9 BP 130/60 Blood Pressure Location Lt brachial Position Sitting Pulse 70 Pulse Source Pulse Oximeter Temp 96.9 F Temp Source Temporal Artery Scan Pulse Oximetry (%) 100 Oxygen Delivery Method Room Air Intake Visit Reasons: 4mth f/u Intake Note: Patient is here to follow up on HLD, HTN, DM. 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 Operator Required: No Fly Winder: Not Required per policy Accompanied by: Self / Same As Patient Allergies No Known Allergies Allergy (Verified 11/14/24 09:24) Medication List - Last Reconciled 11/14/24 by Jordan Wilkinson MD aspirin (Adult Low Dose Aspirin) 81 mg PO DAILY cholecalciferol (vitamin D3) 25 mcg PO DAILY lisinopril 5 mg PO DAILY lovastatin 40 mg PO DAILY metformin ER 500 mg PO QPM metoprolol succinate ER 100 mg PO DAILY pioglitazone 45 mg PO DAILY Tobacco use date assessed: 11/14/24 Fall risk assessment: No Falls in past year Last assessed Fall Risk: 11/14/24 Dental Screening Dental Screen Date: 11/14/24 Did you have a dental visit in the last 12 months?: Yes Did you have a dental problem in the last 6 months where you did not have access to dental care?: No Was dental information given to patient?: Patient has dentist HPI 4mth f/u HPI Details DM hypertension and hyperlipidemia; stable on rx; compliant [facility] Medical History Osteoporosis History of breast cancer Elevated cholesterol HTN (hypertension) History of colon cancer Invasive ductal carcinoma of left breast Left breast mass Obesity Post-menopausal Screening for breast cancer Obesity Type 2 diabetes mellitus with hyperlipidemia Diabetes mellitus Surgical History History of lumpectomy of left breast (~2020) History of colonoscopy H/O arthroscopy of knee H/O rectal polypectomy H/O basal cell carcinoma excision History of arthroscopy of right knee S/P right colectomy History of lumbar laminectomy History of cholecystectomy Family History Father Parkinsons disease Mother Past heart attack Family/Other Diabetes Social History Household Members: Spouse Housing: House Alcohol intake: current Alcohol intake frequency: a few times a week Alcohol type: wine Patient Tobacco Use Status: Never used Tobacco Tobacco use type: Cigarette e-Cigarette/Vaping Use: Never Used Second Hand Smoke Exposure: No Advance Directives Date on File: 07/05/21 service: No Current occupational status: retired Cognitive needs: No Hearing needs: No Vision needs: Yes (Glasses) Female Reproductive History Menstrual Age of Menarche: 11 Questionnaire PHQ-9 Over the last 2 weeks, how often have you been bothered by any of the following problems? 1. Little interest or pleasure in doing things: not at all 2. Feeling down, depressed, or hopeless: not at all 3. Trouble falling or staying asleep, or sleeping too much: not at all 4. Feeling tired or having little energy: not at all 5. Poor appetite or overeating: not at all 6. Feeling bad about yourself - or that you are a failure or have let yourself or your family down: not at all 7. Trouble concentrating on things, such as reading the newspaper or watching television: not at all 8. Moving or speaking so slowly that other people could have noticed. Or the opposite - being so fidgety or restless that you have been moving around a lot more than usual: not at all 9. Thoughts that you would be better off or of hurting yourself in some way: not at all Total score: 0 Depression Screening Interpretation: Negative Depression Screening Done: Yes Source: Developed by Drs. Luis Felipe Gallego, Breann Boyd, Felipe Main and colleagues, with an educational mercedes from [employer]. Thrive Questionnaire Date Thrive assessed: 11/14/24 I am a: Patient What is your living situation today?: I have a steady place to live Within the past 12 months, did the food you bought not last and you didn't have the money to get more?: Never true Within the past 12 months, did you worry whether your food would run out before you got money to buy more?: Never true Do you have trouble paying for medicines?: No Do you have trouble getting transportation to medical appointments?: No Do you have trouble paying your heating and electricity bill?: No Do you have trouble taking care of your child, family member or friend?: No Do you have trouble with day-to-day activities such as bathing, preparing meals, shopping, managing finances, etc.?: No Are you currently unemployed and looking for a job?: No Are you interested in more education?: No Please select the resources that you would like help with: None Currently or been in a relationship where the following occur: No concerns reported THRIVE Score: 0 AUDIT C Alcohol Use Questionnaire (AUDIT-C) 1. How often do you have a drink containing alcohol?: 2-3 times a week 2. How many drinks containing alcohol do you have on a typical day when you are drinking?: 1 or 2 3. How often do you have six or more drinks on one occasion?: Never Total Score: 3 JANA-7 AMB Questionnaire JANA-7 Date JANA - 7 assessed: 11/14/24 Feeling nervous, anxious, or on edge: 0 = Not at all Not being able to stop or control worryin = Not at all Worrying too much about different things: 0 = Not at all Trouble relaxin = Not at all Being so restless that it is hard to sit still: 0 = Not at all Becoming easily annoyed or irritable: 0 = Not at all Feeling afraid as if something awful might happen: 0 = Not at all Total JANA-7 score (0-4 normal; 5-9 mild; 10-14 moderate; 15-21 severe): 0 Source: Developed by Drs. Luis Felipe Gallego, Breann Boyd, Felipe Main and colleagues, with an educational mercedes from [employer]. Review of Systems Const Denies chills, Denies headache(s) and Denies weight loss ENT Denies headache(s) Card Denies chest pain, Denies syncope, Denies irregular heart rhythm and Denies dyspnea Resp Denies chest congestion, Denies cough and Denies dyspnea GI Denies abdominal pain, Denies change in stool character, Denies nausea and Denies vomiting Musc Denies deformity and Denies joint swelling Neuro Denies syncope and Denies headache(s) Physical exam (Primary Care) Vital Signs: Last Vital Signs Temp 96.9 F 11/14/24 09:24 Pulse 70 11/14/24 09:24 BP 130/60 11/14/24 09:24 Pulse Ox 100 11/14/24 09:24 Oxygen Delivery Method Room Air 11/14/24 09:24 BMI result Body Mass Index 36.9 Tobacco/Smoking Status: Tobacco use Status Tobacco use date assessed 11/14/24 11/14/24 09:30 Patient Tobacco Use Status Never used Tobacco 11/14/24 09:23 Tobacco use type Cigarette 11/14/24 09:23 e-Cigarette/Vaping Use Never Used 11/14/24 09:23 PHQ-9: PHQ-9 Score PHQ-9: Total score 0 11/14/24 09:23 Depression Screening Interpretation: Negative Thrive Assessment: Date of Thrive Assessment Date Thrive assessed 11/14/24 11/14/24 09:23 Currently or been in a relationship where the following occur: No concerns reported Const General: cooperative, comfortable, no acute distress and alert Neck Neck: Yes no lymphadenopathy Thyroid: Thyroid normal Resp Effort & Inspection: normal respiratory effort Auscultation: clear to auscultation bilaterally Percussion: percussion normal Cardio Jugular venous distension: no JVD Palpation: normal PMI Rate: regular rate Rhythm: regular rhythm Heart sounds: S1 normal heart sound present and S2 normal heart sound present GI Inspection: Yes normal to inspection Palpation (GI): No hepatosplenomegaly present Skin General skin exam: no rashes or lesions noted Extrem General: Yes no clubbing, cyanosis or edema Coding Level of Care Code Est Pt Level 4 (52862) Diagnoses Hypertension I10 Hyperlipidemia E78.5 Type 2 diabetes mellitus with hyperlipidemia E11.69; E78.5 Assessment & Plan Assessment & Plan (1) Hypertension: Code(s): I10 - Essential (primary) hypertension Category: Medical Plan: stable; same rx (2) Hyperlipidemia: Code(s): E78.5 - Hyperlipidemia, unspecified Category: Medical Plan: stable; same rx (3) Type 2 diabetes mellitus with hyperlipidemia: Code(s): E11.69 - Type 2 diabetes mellitus with other specified complication; E78.5 - Hyperlipidemia, unspecified Category: Medical Plan: stable; same rx Medications: Refilled lisinopril 5 mg PO DAILY 90 tabs 8RF metformin ER 500 mg PO QPM 90 tabs 7RF pioglitazone 45 mg PO DAILY 90 tabs 0RF
[2024-11-14 09:24] VITALS: BP 130/60; PULSE 70; TEMP 36.1; O2SAT 100; BMI 36.9
== END 2024-11-14 09:53 | disposition home or self-care (01) ==
PROVIDERS: PCP Internal Medicine; Visit Provider Internal Medicine
DX: I10 Essential (primary) hypertension (principal); E78.5 Hyperlipidemia, unspecified; E11.69 Type 2 diabetes mellitus with other specified complication

== ENCOUNTER → 2024-11-14 09:17 | Outpatient (BNVA) | payer MEDICARE, SELFPAY | PROVIDERS: PCP Internal Medicine; Visit Provider Internal Medicine | DX: I10 Essential (primary) hypertension (principal); E78.5 Hyperlipidemia, unspecified; E11.69 Type 2 diabetes mellitus with other specified complication | CPT/HCPCS: 99212 ==

== ENCOUNTER 2025-03-31 12:50 | Outpatient (AMB) | payer MEDICARE, SELFPAY ==
[2025-03-31 12:53] VITALS: BP 140/80; PULSE 82; O2SAT 99; BMI 38.4
--- NOTE | 2025-03-31 12:53 | A.OFFPC_ITS ---
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 Required: No Accompanied by: Self / Same As Patient Allergies No Known Allergies Allergy (Verified 03/31/25 15:36) Medication List - Last Reconciled 03/31/25 by Srinivasan Arellano MD aspirin (Adult Low Dose Aspirin) 81 mg PO DAILY cholecalciferol (vitamin D3) 25 mcg PO DAILY 90 days lisinopril 5 mg PO DAILY 90 days lovastatin 40 mg PO DAILY 90 days metformin ER 500 mg PO QPM 90 days metoprolol succinate ER 100 mg PO DAILY 90 days pioglitazone 45 mg PO DAILY 90 days Tobacco use date assessed: 03/31/25 Fall risk assessment: No Falls in past year Last assessed Fall Risk: 03/31/25 Dental Screening Dental Screen Date: 03/31/25 Did you have a dental visit in the last 12 months?: Yes Did you have a dental problem in the last 6 months where you did not have access to dental care?: No Was dental information given to patient?: Patient has dentist HPI Transfer from [facility]/ [address] [place] [address] follow up HPI Details Patient comes in today for her follow up visit - is transferring over from Dr. Wilkinson, who retired from the practice a few months ago States that she feels okay She denies any headaches or dizziness Denies any chest pains, no SOB No nausea/vomiting, no abdominal pain No change in bowel habits noted Needs all of her Rx refilled and updated She's had no follow up labs since they were last done in October 2024 [facility] Medical History (Updated 03/31/25 @ 15:53 by Srinivasan Arellano MD) Obesity (BMI 30-39.9) Essential hypertension Osteoporosis History of breast cancer History of colon cancer Invasive ductal carcinoma of left breast Left breast mass Obesity Post-menopausal Screening for breast cancer Type 2 diabetes mellitus with hyperlipidemia Diabetes mellitus Surgical History History of lumpectomy of left breast (~2020) History of colonoscopy H/O arthroscopy of knee H/O rectal polypectomy H/O basal cell carcinoma excision History of arthroscopy of right knee S/P right colectomy History of lumbar laminectomy History of cholecystectomy Family History Father Parkinsons disease Mother Past heart attack Family/Other Diabetes Social History Household Members: Spouse Housing: House Alcohol intake: current Alcohol intake frequency: a few times a week Alcohol type: wine Patient Tobacco Use Status: Never used Tobacco Tobacco use type: Cigarette e-Cigarette/Vaping Use: Never Used Second Hand Smoke Exposure: No Advance Directives Date on File: 07/05/21 service: No Current occupational status: retired Cognitive needs: No Hearing needs: No Vision needs: Yes (Glasses) Female Reproductive History Menstrual Age of Menarche: 11 Questionnaire PHQ-9 Over the last 2 weeks, how often have you been bothered by any of the following problems? 1. Little interest or pleasure in doing things: not at all 2. Feeling down, depressed, or hopeless: not at all 3. Trouble falling or staying asleep, or sleeping too much: not at all 4. Feeling tired or having little energy: not at all 5. Poor appetite or overeating: not at all 6. Feeling bad about yourself - or that you are a failure or have let yourself or your family down: not at all 7. Trouble concentrating on things, such as reading the newspaper or watching television: not at all 8. Moving or speaking so slowly that other people could have noticed. Or the opposite - being so fidgety or restless that you have been moving around a lot more than usual: not at all 9. Thoughts that you would be better off or of hurting yourself in some way: not at all Total score: 0 Depression Screening Interpretation: Negative Depression Screening Done: Yes 21930 - PHQ-9 Billing: Yes Source: Developed by Drs. Luis Felipe Gallego, Breann Boyd, Felipe Main and colleagues, with an educational mercedes from [employer]. Thrive Questionnaire Date Thrive assessed: 03/31/25 I am a: Patient What is your living situation today?: I have a steady place to live Within the past 12 months, did the food you bought not last and you didn't have the money to get more?: Never true Within the past 12 months, did you worry whether your food would run out before you got money to buy more?: Never true Do you have trouble paying for medicines?: No Do you have trouble getting transportation to medical appointments?: No Do you have trouble paying your heating and electricity bill?: No Do you have trouble taking care of your child, family member or friend?: No Do you have trouble with day-to-day activities such as bathing, preparing meals, shopping, managing finances, etc.?: No Are you currently unemployed and looking for a job?: No Are you interested in more education?: No Please select the resources that you would like help with: None Currently or been in a relationship where the following occur: No concerns reported THRIVE Score: 0 AUDIT C Alcohol Use Questionnaire (AUDIT-C) 1. How often do you have a drink containing alcohol?: 2-4 times a month 2. How many drinks containing alcohol do you have on a typical day when you are drinking?: 1 or 2 3. How often do you have six or more drinks on one occasion?: Never Total Score: 2 Score Reviewed/Action Taken: Yes JANA-7 AMB Questionnaire JANA-7 Date JANA - 7 assessed: 03/31/25 Feeling nervous, anxious, or on edge: 0 = Not at all Not being able to stop or control worryin = Not at all Worrying too much about different things: 0 = Not at all Trouble relaxin = Not at all Being so restless that it is hard to sit still: 0 = Not at all Becoming easily annoyed or irritable: 0 = Not at all Feeling afraid as if something awful might happen: 0 = Not at all Total JANA-7 score (0-4 normal; 5-9 mild; 10-14 moderate; 15-21 severe): 0 Source: Developed by Drs. Luis Felipe Gallego, Breann Boyd, Felipe Main and colleagues, with an educational mercedes from [employer]. Review of Systems Const Denies chills, Denies fatigue, Denies fever(s) and Denies headache(s) ENT Denies dysphagia, Denies dizziness, Denies otalgia, Denies headache(s), Denies neck pain, Denies odynophagia and Denies sore throat Card Denies chest pain, Denies palpitations and Denies dyspnea Resp Denies chest congestion, Denies cough and Denies dyspnea GI Denies abdominal pain, Denies constipation, Denies dysphagia, Denies heartburn, Denies diarrhea, Denies nausea, Denies odynophagia and Denies vomiting Denies difficulty voiding, Denies nocturia, Denies dysuria and Denies urinary urgency Musc Denies back pain and Denies neck pain Skin/Breast Denies rash Neuro Denies dizziness and Denies headache(s) Endo Denies fatigue and Denies palpitations Physical exam (Primary Care) Vital Signs: Last Vital Signs Pulse 82 03/31/25 12:53 BP 140/80 H 03/31/25 12:53 Pulse Ox 99 03/31/25 12:53 Oxygen Delivery Method Room Air 03/31/25 12:53 BMI result Body Mass Index 38.4 Tobacco/Smoking Status: Tobacco use Status Tobacco use date assessed 03/31/25 03/31/25 12:54 Patient Tobacco Use Status Never used Tobacco 03/31/25 12:54 Tobacco use type Cigarette 03/31/25 12:54 e-Cigarette/Vaping Use Never Used 03/31/25 12:54 PHQ-9: PHQ-9 Score PHQ-9: Total score 0 03/31/25 15:45 Depression Screening Interpretation: Negative Thrive Assessment: Date of Thrive Assessment Date Thrive assessed 03/31/25 03/31/25 12:54 Currently or been in a relationship where the following occur: No concerns reported Const General: no acute distress and alert HENMT Ears: TM's normal bilaterally and EAC's normal Throat: Yes posterior oropharynx normal and Yes tonsils normal (no TP congestion) Neck Neck: Yes supple and No lymphadenopathy Thyroid: Thyroid normal Resp Auscultation: clear to auscultation bilaterally, no rales and no wheezes Cardio Rate: regular rate Rhythm: regular rhythm Heart sounds: no murmurs GI Palpation (GI): Soft to palpation and nontender Auscultation: normal bowel sounds General: Yes no CVA tenderness Back/Spine/Pelvis Back: no CVA tenderness Thoracic/Lumbar Spine: No lumbar spinal tenderness Skin Rashes: no rashes Extrem General: Yes no clubbing, cyanosis or edema Coding Level of Care Code Est Pt Level 4 (00649) Complex EM visit Add On G2211 Diagnoses Type 2 diabetes mellitus without complication, without long-term current use of insulin E11.9 Diabetes mellitus complication status: without complication Diabetes mellitus termination clerk insulin use: without termination clerk use Diabetes mellitus type: type 2 Essential hypertension I10 Pure hypercholesterolemia E78.00 Hyperlipidemia type: pure hypercholesterolemia Age-related osteoporosis without current pathological fracture M81.0 Osteoporosis type: age-related Presence of current pathological fracture: without current pathological fracture Thyroid nodule E04.1 History of breast cancer Z85.3 Obesity (BMI 30-39.9) E66.9 Additional Codes PHQ-9 - 81977 - PHQ-9 Billing: Yes ([id number]) Assessment & Plan Assessment & Plan (1) Diabetes mellitus: Comment: cont same meds; 20 minutes reviewing chart, evaluating patient and documenting Code(s): E11.9 - Type 2 diabetes mellitus without complications Category: Medical Qualifiers: Diabetes mellitus complication status: without complication Diabetes mellitus shelter insulin use: without termination clerk use Diabetes mellitus type: type 2 Qualified Code(s): E11.9 - Type 2 diabetes mellitus without complications Plan: Her HgbA1c was at 6.5% when last checked in October 2024 - goal is at least <7.0% Reinforced diabetic diet Continue Metformin ER 500 mg Q PM and Pioglitazone 45 mg QD (2) Essential hypertension: Code(s): I10 - Essential (primary) hypertension Category: Medical Plan: Reinforced low sodium diet - goal is systolic BP of at least 130 to 140 mm or less Continue Lisinopril 5 mg QD and Metorpolol ER 100 mg QD Patient is reminded to continue monitoring her blood pressure regularly (3) Hyperlipidemia: Code(s): E78.5 - Hyperlipidemia, unspecified Category: Medical Qualifiers: Hyperlipidemia type: pure hypercholesterolemia Qualified Code(s): E78.00 - Pure hypercholesterolemia, unspecified Plan: Reinforced low cholesterol diet Continue Lovastatin 40 mg QD As she has not had any follow up labs done since October 2024, will have her go and get her labs and fasting lipids done MARISSA (4) Osteoporosis: Code(s): M81.0 - Age-related osteoporosis without current pathological fracture Category: Medical Qualifiers: Osteoporosis type: age-related Presence of current pathological fracture: without current pathological fracture Qualified Code(s): M81.0 - Age- related osteoporosis without current pathological fracture Plan: Her last BMD done on 08/07/2024 revealed (+) normal BMD but she had a fall from a standing height (tripped on a door jamb) back in December 2023, resulting in a right humeral fracture - this meets the criteria of a fragility fracture She has been advised to continue taking daily oral vitamin D and calcium supplements and is being considered for Tx by endocrinology, pending further evaluation Follow up with endocrinology as scheduled (5) Thyroid nodule: Code(s): E04.1 - Nontoxic single thyroid nodule Category: Medical Plan: Thyroid US done last year (April 2024) revealed (+) 0.7 cm left lower TR4 thyroid nodule Follow up with endocrinology as scheduled (6) History of breast cancer: Comment: (+) Hx of invasive ductal carcinoma of the left breast Code(s): Z85.3 - Personal history of malignant neoplasm of breast Category: Medical Plan: (+) Hx of left breast cancer, diagnosed in May 2021. On 06/26/2021 she underwent ultrasound-guided biopsies of left breast, 2 breast lesions, both invasive ductal carcinoma, grade 2. Both specimens ER positive 95%, MO positive 80% and HER2 negative. 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 She underwent lumpectomy and sentinel node biopsy on 07/09/2021, which revealed invasive ductal carcinoma, grade 2, multifocal, 1.2 cm in greatest dimension, smaller tumor 1.0 cm, margins negative. DCIS nuclear grade is 1 in 2 with focal necrosis, margins negative. Two sentinel nodes and 1 axillary node examined, all negative for metastatic carcinoma. AJCC stage pT1c N0 (sn)(i-). ER/MO positive, HER2 negative. Oncotype DX recurrence score was low, 8. Distant recurrence is 3% and chemotherapy benefit is less than 1%. She completed adjuvant radiation therapy at [facility] on 09/30/21 She was then started on adjuvant hormonal therapy with Aromatase inhibitors to lower risk of recurrence but she could not tolerate Letrozole To continue following up with oncology as scheduled for continuing surveillance (7) Obesity (BMI 30-39.9): Code(s): E66.9 - Obesity, unspecified Category: Medical Plan: Reinforced diet/exercise as tolerated/lose weight Plan Follow up in 4 months Orders: Orders Comprehensive [place]. Panel Fast Today E78.00 - Pure hypercholesterolemia, unspecified Lipid Panel Today E78.00 - Pure hypercholesterolemia, unspecified Microalbumin, Random (w Creat) Today E11.9 - Type 2 diabetes mellitus without complications UA CC w/rflx Micro + Cult Today R30.0 - Dysuria Vitamin D 25-OH Total Today E55.9 - Vitamin D deficiency, unspecified Complete Blood Count Auto Diff Today D64.9 - Anemia, unspecified Hemoglobin A1c Today E11.9 - Type 2 diabetes mellitus without complications TSH reflex Free T4 Today E78.00 - Pure hypercholesterolemia, unspecified Vitamin B12 and Folate Today E53.8 - Deficiency of other specified B group vitamins Medications: Changed From lisinopril 5 mg PO DAILY 90 tabs 8RF To lisinopril 5 mg PO DAILY 90 tabs 3RF 90 days From lovastatin 40 mg PO DAILY 90 tabs 4RF To lovastatin 40 mg PO DAILY 90 tabs 3RF 90 days From metoprolol succinate ER 100 mg PO DAILY 90 tabs 0RF To metoprolol succinate ER 100 mg PO DAILY 90 tabs 3RF 90 days From pioglitazone 45 mg PO DAILY 90 tabs 0RF To pioglitazone 45 mg PO DAILY 90 tabs 3RF 90 days From cholecalciferol (vitamin D3) 25 mcg PO DAILY 30 caps 6RF To cholecalciferol (vitamin D3) 25 mcg PO DAILY 90 caps 3RF 90 days From metformin ER 500 mg PO QPM 90 tabs 2RF To metformin ER 500 mg PO QPM 90 tabs 3RF 90 days
== END 2025-03-31 13:51 | disposition home or self-care (01) ==
LOC: HO.HMCH 12:51
PROVIDERS: PCP Internal Medicine; Visit Provider Internal Medicine
DX: E11.9 Type 2 diabetes mellitus without complications (principal); I10 Essential (primary) hypertension; E66.9 Obesity, unspecified; Z68.38 Body mass index [BMI] 38.0-38.9, adult; E78.00 Pure hypercholesterolemia, unspecified; M81.0 Age-related osteoporosis without current pathological fracture; E04.1 Nontoxic single thyroid nodule; Z85.3 Personal history of malignant neoplasm of breast

== ENCOUNTER → 2025-03-31 12:50 | Outpatient (BNVA) | payer MEDICARE, SELFPAY | PROVIDERS: PCP Internal Medicine; Visit Provider Internal Medicine | DX: E11.9 Type 2 diabetes mellitus without complications (principal); I10 Essential (primary) hypertension; E78.00 Pure hypercholesterolemia, unspecified; M81.0 Age-related osteoporosis without current pathological fracture; E04.1 Nontoxic single thyroid nodule; E66.9 Obesity, unspecified; R30.0 Dysuria; E55.9 Vitamin D deficiency, unspecified; D64.9 Anemia, unspecified; Z85.3 Personal history of malignant neoplasm of breast; Z68.38 Body mass index [BMI] 38.0-38.9, adult | CPT/HCPCS: 96127; 99212 ==

== ENCOUNTER 2025-07-14 08:48 | Outpatient (REF) | payer MEDICARE, SELFPAY ==
--- NOTE | ~2025-07-14 | MM_ITS ---
EXAMINATION: MM SCREENING DIGITAL BREAST TOMOSYNTHESIS, BILATERAL CLINICAL INFORMATION: Screening. Asymptomatic. COMPARISON: Mammography: Comparison is made with available priors TECHNIQUE: Digital breast mammography with tomosynthesis is performed in both the craniocaudal and mediolateral oblique views along with computer-aided detection (CAD). FINDINGS: There are scattered areas of fibroglandular density. Left lumpectomy changes are stable. Bilateral secretory calcifications are stable. There are no significant masses, abnormal calcifications, or other abnormalities. MM/MM tomosynthesis screening BI IMPRESSION: No mammographic evidence of malignancy. ASSESSMENT: BI-RADS Category 2: Benign RECOMMENDATION: Routine annual mammography screening. 1 year F/U This examination should not preclude the clinical evaluation of a suspicious palpable abnormality. This patient's information was entered into a reminder system with a target due date for their next mammogram. Electronically signed by: Graciela Parker DO 07/17/2025 01:01 PM EDT
== END 2025-07-14 08:49 | disposition home or self-care (01) ==
LOC: HO.MAMMO 08:48
PROVIDERS: Absent Provider Surgery; PCP Internal Medicine; Visit Provider Internal Medicine
DX: Z12.31 Encounter for screening mammogram for malignant neoplasm of breast (principal)
CPT/HCPCS: 77063; 77067

== ENCOUNTER → 2025-07-14 09:00 | Outpatient (BNV) | payer MEDICARE, SELFPAY | PROVIDERS: Absent Provider Surgery; PCP Internal Medicine; Visit Provider Internal Medicine | DX: Z12.31 Encounter for screening mammogram for malignant neoplasm of breast (principal) | CPT/HCPCS: 77063; 77067 ==

== ENCOUNTER 2025-08-04 07:01 | Outpatient (REF) | payer MEDICARE, SELFPAY ==
[2025-08-04 07:41] LABS: Hematocrit 35.1 % (37.0-47.0); Hemoglobin 11.2 g/dl (12.0-16.0); Imm Gran Abs Auto 0.02 X10*3/uL (0.00-0.03); Imm Gran Pct Auto 0.4 % (0.0-0.4); Lymphocytes Absolute Auto 1.8 X10*3/uL (1.2-4.9); MANUAL DIFF FLAG NO; Mean Corpuscular HGB Conc 31.9 g/dl (31.0-35.0); Mean Corpuscular Hemoglobin 28.8 pg (27.0-33.0); Mean Corpuscular Volume 90.2 fL (80.0-98.0); NRBC Abs Auto 0.000 X10*3/uL (0.0-0.012); NRBC Pct Auto 0.0 /100WBC (0.0-0.2); Platelet Count 242 X10*3/uL (160-400); Red Blood Count 3.89 X10*6/uL (4.20-5.50); White Blood Count 5.2 X10*3/uL (4.8-10.8)
[2025-08-04 08:44] LABS: Alanine Aminotransferase 15 U/L (0-31); Albumin Level 4.0 g/dL (3.5-5.0); Alkaline Phosphatase 97 U/L (39-117); Anion Gap 13 (12-20); Aspartate Amino Transferase 22 U/L (5-31); Blood Urea Nitrogen 21 mg/dL (9-16); Calcium 9.2 mg/dL (8.4-10.2); Carbon Dioxide 23 mmol/L (22-29); Chloride 113 mmol/L (96-108); Cholesterol 146 mg/dL (<200); Estimated Glomerular Filt Rate 45; HDL Cholesterol 47 mg/dL (>40); Potassium 4.2 mmol/L (3.3-5.1); Sodium 145 mmol/L (135-145); Total Protein 6.8 g/dL (6.5-8.0); Triglycerides 113 mg/dL (<150)
[2025-08-04 08:57] LABS: Free T4 (Free Thyroxine) 0.96 ng/dL (0.71-1.85)
[2025-08-04 09:02] LABS: Thyroid Stimulating Hormone 2.94 uIU/mL (0.32-4.0)
[2025-08-04 09:07] LABS: Folate 10.3 ng/mL (> or = 4.0); Vitamin B12 341 pg/mL (200-900)
== END 2025-08-04 07:02 | disposition home or self-care (01) ==
LOC: HO.LAB 07:01
PROVIDERS: Student in an Organized Health Care Education/Training Program; PCP Internal Medicine; Visit Provider Internal Medicine
DX: E11.9 Type 2 diabetes mellitus without complications (principal); E53.8 Deficiency of other specified B group vitamins; E04.2 Nontoxic multinodular goiter; E55.9 Vitamin D deficiency, unspecified; E78.00 Pure hypercholesterolemia, unspecified; D64.9 Anemia, unspecified
CPT/HCPCS: 36415; 80053; 80061; 82306; 82607; 82746; 83036; 84439; 84443; 85025

== ENCOUNTER 2025-08-05 09:06 | Outpatient (REF) | payer MEDICARE, SELFPAY ==
[2025-08-05 09:33] LABS: Appearance Urine Clear; Glucose Urine UA Negative (Negative); PH 5.0 (5.0-9.0); Specific Gravity - Urine 1.020 (1.005-1.025); UMIC TRIGGER UACC YES
[2025-08-05 09:38] LABS: UACC Culture Trigger YES
[2025-08-05 10:02] LABS: Microalbum/Creatinine Ratio Ur 20.6 ug/mg cr (<30)
== END 2025-08-05 09:07 | disposition home or self-care (01) ==
LOC: HO.LNP 09:06
PROVIDERS: Visit Provider Internal Medicine
DX: E11.9 Type 2 diabetes mellitus without complications (principal); R30.0 Dysuria
CPT/HCPCS: 81001; 82043; 82570; 87086

== ENCOUNTER 2025-08-09 08:48 | Outpatient (AMB) | payer MEDICARE, SELFPAY ==
--- NOTE | 2025-08-09 08:49 | MHC.OFFVIS ---
Vital Signs 08/09/25 08:50 Height 5 ft 5 in Weight 235 lb 14.314 oz BMI 39.3 BP 130/70 Blood Pressure Location Rt brachial Position Sitting Intake Visit Reasons: yearly breast examination Intake Note: Patient presents for yearly breast examination assessment. Pt c/o: reports no breast complaints at this time. 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 She denies any palpable breast masses or nipple or skin changes. She says she feels well overall. She had a mammogram last 07/17/2025 for surveillance and this was unremarkable. She is not on any hormonal treatment. She says she feels well overall. [facility] Medical History Obesity (BMI 30-39.9) Essential hypertension Osteoporosis History of breast cancer History of colon cancer Invasive ductal carcinoma of left breast Left breast mass Obesity Post-menopausal Screening for breast cancer Type 2 diabetes mellitus with hyperlipidemia Diabetes mellitus Surgical History History of lumpectomy of left breast (~2020) History of colonoscopy H/O arthroscopy of knee H/O rectal polypectomy H/O basal cell carcinoma excision History of arthroscopy of right knee S/P right colectomy History of lumbar laminectomy History of cholecystectomy Family History Father Parkinsons disease Mother Past heart attack Family/Other Diabetes Social History Household Members: Spouse Housing: House Alcohol intake: current Alcohol intake frequency: a few times a week Alcohol type: wine Patient Tobacco Use Status: Never used Tobacco Tobacco use type: Cigarette e-Cigarette/Vaping Use: Never Used Second Hand Smoke Exposure: No Advance Directives Date on File: 07/05/21 service: No Current occupational status: retired Cognitive needs: No Hearing needs: No Vision needs: Yes (Glasses) Female Reproductive History Menstrual Age of Menarche: 11 Review of Systems Const Denies chills and Denies fever(s) Card Denies chest pain, Denies dyspnea and Denies dyspnea on exertion Resp Denies cough, Denies dyspnea and Denies dyspnea on exertion GI Denies hematochezia and Denies change in bowel habits Denies hematuria Musc Denies back pain and Denies limited range of motion Neuro Denies focal weakness and Denies convulsions Psych Denies depression and Denies mood swings Physical Exam Vital Signs: Last Vital Signs BP 130/70 08/09/25 08:50 BMI result Body Mass Index 39.3 Const General: comfortable and no acute distress Orientation/consciousness: patient oriented x3 Neck Neck: Yes no lymphadenopathy Chest Other: No palpable breast masses, no axillary lymphadenopathy Resp Auscultation: clear to auscultation bilaterally Cardio Rhythm: regular rhythm GI Palpation (GI): Soft to palpation, nontender and no guarding Neuro General: patient oriented x3 Assessment & Plan Assessment & Plan (1) History of breast cancer: Comment: (+) Hx of invasive ductal carcinoma of the left breast Code(s): Z85.3 - Personal history of malignant neoplasm of breast Category: Medical Plan: Current physical exam does not suggest any mass in the breasts nor in the axilla. I have reviewed her mammogram from last month and this was unremarkable. I recommended her to continue doing mammograms if she remains healthy. I will see her again in the office next year. She seems to be in very good health. Coding Level of Care Code Est Pt Level 3 (27924) Complex EM visit Add On G2211 Diagnoses History of breast cancer Z85.3
[2025-08-09 08:50] VITALS: BP 130/70; BMI 39.3
== END 2025-08-09 10:22 | disposition home or self-care (01) ==
LOC: HO.HGS 08:49
PROVIDERS: PCP Internal Medicine; Visit Provider Surgery
DX: Z85.3 Personal history of malignant neoplasm of breast (principal)
CPT/HCPCS: 99213; G2211

== ENCOUNTER → 2025-08-09 08:48 | Outpatient (BNVA) | payer MEDICARE, SELFPAY | PROVIDERS: PCP Internal Medicine; Visit Provider Surgery | DX: Z12.89 Encounter for screening for malignant neoplasm of other sites (principal); Z85.3 Personal history of malignant neoplasm of breast | CPT/HCPCS: 99212 ==

== ENCOUNTER 2025-08-10 09:34 | Outpatient (AMB) | payer MEDICARE, SELFPAY ==
[2025-08-10 09:45] VITALS: BP 162/90; PULSE 92; O2SAT 97; BMI 39.0
--- NOTE | 2025-08-10 09:45 | A.OFFPC_ITS ---
Vital Signs 08/10/25 09:45 08/10/25 11:00 Height 5 ft 5 in Weight 234 lb 2 oz BMI 39.0 BP 162/90 H 160/90 H Blood Pressure Location Lt brachial Lt brachial Position Sitting Sitting Pulse 92 Pulse Source Pulse Oximeter Pulse Oximetry (%) 97 Oxygen Delivery Method Room Air Intake Visit Reasons: 6mth f/u Engraver Lettering Required: No Accompanied by: Self / Same As Patient Allergies No Known Allergies Allergy (Verified 08/10/25 10:44) Medication List - Last Reconciled 08/10/25 by Srinivasan Arellano MD aspirin (Adult Low Dose Aspirin) 81 mg PO DAILY cholecalciferol (vitamin D3) 25 mcg PO DAILY 90 days lisinopril 5 mg PO DAILY 90 days lovastatin 40 mg PO DAILY 90 days metformin ER 500 mg PO QPM 90 days metoprolol succinate ER 100 mg PO DAILY 90 days pioglitazone 45 mg PO DAILY 90 days Tobacco use date assessed: 08/10/25 Fall risk assessment: No Falls in past year Last assessed Fall Risk: 08/10/25 Dental Screening Dental Screen Date: 08/10/25 Did you have a dental visit in the last 12 months?: Yes Did you have a dental problem in the last 6 months where you did not have access to dental care?: No Was dental information given to patient?: Patient has dentist HPI 6mth f/u HPI Details Patient comes in today for her follow up visit States that she feels okay She denies any headaches or dizziness Denies any chest pains, no SOB No nausea/vomiting, no abdominal pain No change in bowel habits noted She had her follow up labs done last week - to discuss her results States that she already got her flu shot and updated COVID booster at her local pharmacy a couple of months ago but will need to get her RSV vaccine if it is recommended for her to get it PFS Medical History Obesity (BMI 30-39.9) Essential hypertension Osteoporosis History of breast cancer History of colon cancer Invasive ductal carcinoma of left breast Left breast mass Obesity Post-menopausal Screening for breast cancer Type 2 diabetes mellitus with hyperlipidemia Diabetes mellitus Surgical History History of lumpectomy of left breast (~2020) History of colonoscopy H/O arthroscopy of knee H/O rectal polypectomy H/O basal cell carcinoma excision History of arthroscopy of right knee S/P right colectomy History of lumbar laminectomy History of cholecystectomy Family History Father Parkinsons disease Mother Past heart attack Family/Other Diabetes Social History Household Members: Spouse Housing: House Alcohol intake: current Alcohol intake frequency: a few times a week Alcohol type: wine Patient Tobacco Use Status: Never used Tobacco Tobacco use type: Cigarette e-Cigarette/Vaping Use: Never Used Second Hand Smoke Exposure: No Advance Directives Date on File: 07/05/21 service: No Current occupational status: retired Cognitive needs: No Hearing needs: No Vision needs: Yes (Glasses) Female Reproductive History Menstrual Age of Menarche: 11 Questionnaire PHQ-9 Over the last 2 weeks, how often have you been bothered by any of the following problems? 1. Little interest or pleasure in doing things: not at all 2. Feeling down, depressed, or hopeless: not at all 3. Trouble falling or staying asleep, or sleeping too much: not at all 4. Feeling tired or having little energy: not at all 5. Poor appetite or overeating: not at all 6. Feeling bad about yourself - or that you are a failure or have let yourself or your family down: not at all 7. Trouble concentrating on things, such as reading the newspaper or watching television: not at all 8. Moving or speaking so slowly that other people could have noticed. Or the opposite - being so fidgety or restless that you have been moving around a lot more than usual: not at all 9. Thoughts that you would be better off or of hurting yourself in some way: not at all Total score: 0 Depression Screening Interpretation: Negative Depression Screening Done: Yes 09607 - PHQ-9 Billing: Yes Source: Developed by Drs. Luis Felipe Gallego, Breann Boyd, Felipe Main and colleagues, with an educational mercedes from [email or web address]. Thrive Questionnaire Date Thrive assessed: 08/10/25 I am a: Patient What is your living situation today?: I have a steady place to live Within the past 12 months, did the food you bought not last and you didn't have the money to get more?: Never true Within the past 12 months, did you worry whether your food would run out before you got money to buy more?: Never true Do you have trouble paying for medicines?: No Do you have trouble getting transportation to medical appointments?: No Do you have trouble paying your heating and electricity bill?: No Do you have trouble taking care of your child, family member or friend?: No Do you have trouble with day-to-day activities such as bathing, preparing meals, shopping, managing finances, etc.?: No Are you currently unemployed and looking for a job?: No Are you interested in more education?: No Please select the resources that you would like help with: None Currently or been in a relationship where the following occur: No concerns reported THRIVE Score: 0 AUDIT C Alcohol Use Questionnaire (AUDIT-C) 1. How often do you have a drink containing alcohol?: 2-4 times a month 2. How many drinks containing alcohol do you have on a typical day when you are drinking?: 1 or 2 3. How often do you have six or more drinks on one occasion?: Never Total Score: 2 Score Reviewed/Action Taken: Yes JANA-7 AMB Questionnaire JANA-7 Date JANA - 7 assessed: 08/10/25 Feeling nervous, anxious, or on edge: 0 = Not at all Not being able to stop or control worryin = Not at all Worrying too much about different things: 0 = Not at all Trouble relaxin = Not at all Being so restless that it is hard to sit still: 0 = Not at all Becoming easily annoyed or irritable: 0 = Not at all Feeling afraid as if something awful might happen: 0 = Not at all Total JANA-7 score (0-4 normal; 5-9 mild; 10-14 moderate; 15-21 severe): 0 Source: Developed by Drs. Luis Felipe Gallego, Breann Boyd, Felipe Main and colleagues, with an educational mercedes from [email or web address]. Review of Systems Const Denies chills, Denies fatigue, Denies fever(s) and Denies headache(s) ENT Denies dysphagia, Denies dizziness, Denies otalgia, Denies headache(s), Denies neck pain, Denies odynophagia and Denies sore throat Card Denies chest pain, Denies palpitations and Denies dyspnea Resp Denies chest congestion, Denies cough and Denies dyspnea GI Denies abdominal pain, Denies constipation, Denies dysphagia, Denies heartburn, Denies diarrhea, Denies nausea, Denies odynophagia and Denies vomiting Denies difficulty voiding, Denies nocturia, Denies dysuria and Denies urinary urgency Musc Denies back pain and Denies neck pain Skin/Breast Denies rash Neuro Denies dizziness and Denies headache(s) Endo Denies fatigue and Denies palpitations Physical exam (Primary Care) Vital Signs: Last Vital Signs Pulse 92 08/10/25 09:45 BP 160/90 H 08/10/25 11:00 Pulse Ox 97 08/10/25 09:45 Oxygen Delivery Method Room Air 08/10/25 09:45 BMI result Body Mass Index 39.0 Tobacco/Smoking Status: Tobacco use Status Tobacco use date assessed 08/10/25 08/10/25 09:48 Patient Tobacco Use Status Never used Tobacco 08/10/25 09:48 Tobacco use type Cigarette 08/10/25 09:48 e-Cigarette/Vaping Use Never Used 08/10/25 09:48 PHQ-9: PHQ-9 Score PHQ-9: Total score 0 08/10/25 10:47 Depression Screening Interpretation: Negative Thrive Assessment: Date of Thrive Assessment Date Thrive assessed 08/10/25 08/10/25 09:48 Currently or been in a relationship where the following occur: No concerns reported Const General: no acute distress and alert HENMT Ears: TM's normal bilaterally and EAC's normal Throat: Yes posterior oropharynx normal and Yes tonsils normal (no TP congestion) Neck Neck: Yes supple and No lymphadenopathy Thyroid: Thyroid normal Resp Auscultation: clear to auscultation bilaterally, no rales and no wheezes Cardio Rate: regular rate Rhythm: regular rhythm Heart sounds: no murmurs GI Palpation (GI): Soft to palpation and nontender Auscultation: normal bowel sounds General: Yes no CVA tenderness Back/Spine/Pelvis Back: no CVA tenderness Thoracic/Lumbar Spine: No lumbar spinal tenderness Skin Rashes: no rashes Extrem General: Yes no clubbing, cyanosis or edema Results Reviewed Results Reviewed: Laboratory Tests 08/04/25 08/05/25 07:06 07:20 WBC 5.2 Hgb 11.2 L Hct 35.1 L Plt Count 242 Sodium 145 Potassium 4.2 Creatinine 1.14 Estimated GFR 45 Fasting Glucose 116 H Hemoglobin A1c % 6.7 H Calcium 9.2 AST 22 ALT 15 Triglycerides 113 Cholesterol 146 LDL Cholesterol, Calc 77 HDL Cholesterol 47 Vitamin B12 341 25-OH Vitamin D Total 28.8 L TSH 2.94 Free T4 0.96 Ur Specific [place] 1.020 Urine Protein Negative Urine Glucose (UA) Negative Urine Blood Negative Urine Nitrite Negative Ur Leukocyte Esterase Small (1+) H Microalb/Creat Ratio 20.6 Coding Level of Care Code Est Pt Level 4 (69126) Complex EM visit Add On G2211 Diagnoses Type 2 diabetes mellitus without complication, without long-term current use of insulin E11.9 Diabetes mellitus complication status: without complication Diabetes mellitus fdc insulin use: without termite treater helper use Diabetes mellitus type: type 2 Essential hypertension I10 Pure hypercholesterolemia E78.00 Hyperlipidemia type: pure hypercholesterolemia Age-related osteoporosis without current pathological fracture M81.0 Osteoporosis type: age-related Presence of current pathological fracture: without current pathological fracture Thyroid nodule E04.1 History of breast cancer Z85.3 Obesity (BMI 30-39.9) E66.9 Additional Codes PHQ-9 - 38127 - PHQ-9 Billing: Yes ([id number]) Assessment & Plan Assessment & Plan (1) Diabetes mellitus: Comment: cont same meds; 20 minutes reviewing chart, evaluating patient and documenting Code(s): E11.9 - Type 2 diabetes mellitus without complications Category: Medical Qualifiers: Diabetes mellitus complication status: without complication Diabetes mellitus fdc insulin use: without termite treater helper use Diabetes mellitus type: type 2 Qualified Code(s): E11.9 - Type 2 diabetes mellitus without complications Plan: Her HgbA1c has gone up slightly to 6.7% on her recent labs; it was at 6.5% when previously checked back in October 2024 - goal is at least <7.0% but ideally under 6.5% Reinforced diabetic diet Continue Metformin ER 500 mg Q PM and Pioglitazone 45 mg QD for now - patient has been cautioned that her HgbA1c was consistently at 6.4% the entire year last year and it is starting to inch up slowly over the past year and she needs to try to keep it better controlled (2) Essential hypertension: Code(s): I10 - Essential (primary) hypertension Category: Medical Plan: Reinforced low sodium diet - goal is systolic BP of at least 130 to 140 mm or less Continue Lisinopril 5 mg QD and Metoprolol ER 100 mg QD for now She is advised that her blood pressure is high today even after it was rechecked although it was much better when he was at Dr. Oliver's office yesterday Patient is reminded to continue monitoring her blood pressure regularly and will also have her follow up with nurse navigation in a few weeks to have her blood pressure rechecked (3) Hyperlipidemia: Code(s): E78.5 - Hyperlipidemia, unspecified Category: Medical Qualifiers: Hyperlipidemia type: pure hypercholesterolemia Qualified Code(s): E78.00 - Pure hypercholesterolemia, unspecified Plan: Results of her labs done last week reviewed and discussed with patient Reinforced low cholesterol diet Continue Lovastatin 40 mg QD Will have her recheck her labs and fasting lipids in 4 months for follow up (4) Osteoporosis: Code(s): M81.0 - Age-related osteoporosis without current pathological fracture Category: Medical Qualifiers: Osteoporosis type: age-related Presence of current pathological fracture: without current pathological fracture Qualified Code(s): M81.0 - Age-related osteoporosis without current pathological fracture Plan: Her last BMD done on 08/07/2024 revealed (+) normal BMD but she had a fall from a standing height (tripped on a door jamb) back in December 2023, resulting in a right humeral fracture - this meets the criteria of a fragility fracture She has been advised to continue taking daily oral vitamin D and calcium supplements and is being considered for Tx by endocrinology, pending further evaluation Follow up with endocrinology as scheduled (5) Thyroid nodule: Code(s): E04.1 - Nontoxic single thyroid nodule Category: Medical Plan: Thyroid US done last year (April 2024) revealed (+) 0.7 cm left lower TR4 thyroid nodule Follow up with endocrinology as scheduled (6) History of breast cancer: Comment: (+) Hx of invasive ductal carcinoma of the left breast Code(s): Z85.3 - Personal history of malignant neoplasm of breast Category: Medical Plan: (+) Hx of left breast cancer, diagnosed in May 2021. On 06/26/2021 she underwent ultrasound-guided biopsies of left breast, 2 breast lesions, both invasive ductal carcinoma, grade 2. Both specimens ER positive 95%, MI positive 80% and HER2 negative. 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 She underwent lumpectomy and sentinel node biopsy on 07/09/2021, which revealed invasive ductal carcinoma, grade 2, multifocal, 1.2 cm in greatest dimension, smaller tumor 1.0 cm, margins negative. DCIS nuclear grade is 1 in 2 with focal necrosis, margins negative. Two sentinel nodes and 1 axillary node examined, all negative for metastatic carcinoma. AJCC stage pT1c N0 (sn)(i-). ER/MI positive, HER2 negative. Oncotype DX recurrence score was low, 8. Distant recurrence is 3% and chemotherapy benefit is less than 1%. She completed adjuvant radiation therapy at [facility] on 09/30/21 She was then started on adjuvant hormonal therapy with Aromatase inhibitors to lower risk of recurrence but she could not tolerate Letrozole She was just seen by Dr. Oliver yesterday and was advised that she has no evidence of recurrence at this time To continue following up with oncology as scheduled for continuing surveillance (7) Obesity (BMI 30-39.9): Code(s): E66.9 - Obesity, unspecified Category: Medical Plan: Reinforced diet/exercise as tolerated/lose weight Plan Follow up in 4 months Orders: Orders Complete Blood Count Auto Diff 4 Months D64.9 - Anemia, unspecified Lipid Panel 4 Months E78.00 - Pure hypercholesterolemia, unspecified Vitamin D 25-OH Total 4 Months E55.9 - Vitamin D deficiency, unspecified Hemoglobin A1c 4 Months E11.9 - Type 2 diabetes mellitus without complications Comprehensive [place]. Panel Fast 4 Months E78.00 - Pure hypercholesterolemia, unspecified Microalbumin, Random (w Creat) 4 Months E11.9 - Type 2 diabetes mellitus without complications UA CC w/rflx Micro + Cult 4 Months R30.0 - Dysuria
[2025-08-10 11:00] VITALS: BP 160/90
== END 2025-08-10 11:14 | disposition home or self-care (01) ==
LOC: HO.HMCH 09:35
PROVIDERS: PCP Internal Medicine; Visit Provider Internal Medicine
DX: E11.9 Type 2 diabetes mellitus without complications (principal); I10 Essential (primary) hypertension; E78.00 Pure hypercholesterolemia, unspecified; M81.0 Age-related osteoporosis without current pathological fracture; E04.1 Nontoxic single thyroid nodule; Z85.3 Personal history of malignant neoplasm of breast; E66.9 Obesity, unspecified

== ENCOUNTER → 2025-08-10 09:34 | Outpatient (BNVA) | payer MEDICARE, SELFPAY | PROVIDERS: PCP Internal Medicine; Visit Provider Internal Medicine | DX: E11.9 Type 2 diabetes mellitus without complications (principal); I10 Essential (primary) hypertension; E78.00 Pure hypercholesterolemia, unspecified; M81.0 Age-related osteoporosis without current pathological fracture; E04.1 Nontoxic single thyroid nodule; E66.9 Obesity, unspecified; Z85.3 Personal history of malignant neoplasm of breast; Z68.39 Body mass index [BMI] 39.0-39.9, adult | CPT/HCPCS: 96127; 99212 ==

== ENCOUNTER → 2025-09-01 07:55 | Outpatient (BNVA) | payer MEDICARE, SELFPAY | PROVIDERS: PCP Internal Medicine | DX: Z01.30 Encounter for examination of blood pressure without abnormal findings (principal) | CPT/HCPCS: 99211 ==